=== PATIENT | female | born 1935 | race Caucasian/White ===

== ENCOUNTER 2017-01-19 07:37 | Emergency (ER) | payer MEDICARE, OTHER ==
[~2017-01-19] VITALS: Ht 170.2 cm; Wt 67.4 kg
[~2017-01-19 07:37] MED LIST: ASPI-557 PO; ATOR10TA64 PO; CALC-886 PO; CARB1TAB20 PO; DIGO125T70 PO; FURO40TA5 PO; LOSA50TA17 PO; MULT-1243 PO; POTA20TA69 PO; WARF3TAB27 PO; ZOLE5INF7 IV
--- OUTSIDE RECORDS SUMMARY | 2017-01-19 07:41 | XMS REPORT | Referral Summary ---
Author Author [facility] Organization [facility] Address Unknown Phone Unavailable Care Team Providers Care Cold Mill Supervisor Name Role Phone Fatoumata Negron Primary Care Physician [phone] Encounter VC Date(s): 04/30/15 - 04/30/15 [facility] [address] [place], [place] [address] Discharge Disposition: 01-Home or Self Care Attending Physician: Marco Antonio Kendall MD Admitting Physician: Marco Antonio Kendall MD Vital Signs No data available for this section Problem List Condition Effective Dates Status Health Status Informant Gait Active disturbance(Confirme d) Atrial Resolved fibrillation(Confirm ed) Meningioma(Confirmed Active ) Presence of Active permanent cardiac pacemaker(Confirmed) Carotid artery RT Resolved neck, LT leg(Confirmed)1 AF (atrial Active fibrillation)(Confir med) 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)2 Decreased vibratory Active sense(Confirmed) Carotid artery Active disease(Confirmed) H/O Active osteopenia(Confirmed ) H/O Active hyperlipidemia(Confi rmed) High Active cholesterol(Confirme d) Hypertension(Confirm Resolved ed) HTN Active (hypertension)(Confi rmed) Malignant colon Resolved tumor(Confirmed)3 RT RF Resolved Mass(Confirmed)4 Orthostatic Active hypotension(Confirme d) Osteoporosis(Confirm Resolved ed) Pacemaker(Confirmed) 03/23/14 Resolved 5 Parkinsonism(Confirm Active ed) 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) Tremor(Confirmed) Active 1surgically cleaned out 2Descending colon 3tumor surgically removed 4excision 5pacemaker implanted Allergies, Adverse Reactions, Alerts No Known Allergies Medications amLODIPine 5 mg oral tablet See Instructions, TAKE 1 TABLET BY MOUTH EVERY DAY, # 90 tabs, 3 Refill(s), eRx : [facility] [id number], TAKE 1 TABLET BY MOUTH EVERY DAY Start Date: 04/26/15 Status: Ordered Aspir 81 81 mg, Oral, Daily, 1 tab, 0 Refill(s) Start Date: 05/26/14 Status: Ordered atorvastatin 10 mg oral tablet 10 mg 1 tabs, Oral, Bedtime (once a day), # 90 tabs, 3 Refill(s), [id number], 1 tabs Oral Bedtime (once a day) Start Date: 07/19/15 Status: Ordered carbidopa-levodopa 25 mg-100 mg oral tablet See Instructions, 1 TABS ORAL TID, # 90 tabs, eRx: [facility] [id number], 1 TABS ORAL TID Start Date: 11/08/15 Status: Ordered Centrum Silver 0.4mg-300mcgmcg - 1 tab, Daily, 0 Refill(s) Start Date: 04/09/14 Status: Ordered Citracal + D 250MG-200UNITS - 2 CAPS, Oral, Daily, 0 Refill(s) Start Date: 04/09/14 Status: Ordered digoxin 125 mcg (0.125 mg) oral tablet 125 mcg 1 tabs, Oral, Daily, # 90 tabs, 3 Refill(s), Pharmacy: [facility] [id number], 1 tabs Oral Daily Start Date: 07/06/15 Status: Ordered Diltiazem Hydrochloride ER 120 mg/24 hours oral capsule, extended release 120 mg 1 caps, Oral, Daily, # 30 caps, 3 Refill(s), Pharmacy: [facility] [id number], 1 caps Oral Daily Start Date: 08/17/15 Status: Ordered losartan 50 mg oral tablet 50 mg 1 tabs, Oral, Daily, # 90 tabs, 3 Refill(s), Pharmacy: [facility] [id number], 1 tabs Oral Daily Start Date: 07/06/15 Status: Ordered potassium chloride 20 mEq oral tablet, extended release See Instructions, 1 TABS ORAL DAILY, # 30 tabs, 3 Refill(s), eRx: [facility] [id number], 1 TABS ORAL DAILY Start Date: 08/16/15 Status: Ordered Reclast 5 mg/100 mL intravenous solution 5 mg 100 mL, IV, qYear, yearly, # 100 mL, 0 Refill(s), other reason (Rx) Start Date: 05/14/15 Stop Date: 05/14/16 Status: Ordered warfarin 1 mg oral tablet See Instructions, TAKE 1 TABLET BY MOUTH EVERY DAY, # 30 tabs, eRx: [facility] [id number], TAKE 1 TABLET BY MOUTH EVERY DAY Start Date: 10/04/15 Status: Ordered Results No data available for this section Immunizations Vaccine Date Refusal Reason hepatitis A pediatric vaccine 09/03/98 hepatitis A pediatric vaccine 02/25/98 pneumococcal 13-valent conjugate vaccine 11/10/14 pneumococcal 23-polyvalent vaccine 11/30/08 tetanus-diphth toxoids (Td) adult/adol 11/25/07 Procedures Procedure Date Related Diagnosis Body Site Colonoscopic polypectomy1 04/22/12 Colonoscopic polypectomy2 10/14/01 Biopsy of breast 1979 Appendectomy Colectomy FS - Flexible sigmoidoscopy3 H/O excision of RT RF mass Hysterectomy pacemaker 1Adenomatous polyp 1. We'll not need to repeat unless symptoms warrant. 2Polyps, personal history colon cancer 3Multiple through the years Social History Social History Type Response Smoking Status Never smoker Assessment and Plan No data available for this section
--- OUTSIDE RECORDS SUMMARY | 2017-01-19 07:42 | XMS REPORT | Referral Summary ---
Author Author [facility] Organization [facility] Address Unknown Phone Unavailable Care Team Providers Care Water Pollution Control Technician Name Role Phone Fatoumata Negron Primary Care Physician [phone] Encounter VC Date(s): 05/10/15 - 05/10/15 [facility] [address] [facility] [place] [address] Discharge Diagnosis: AF (atrial fibrillation) Discharge Disposition: 01-Home or Self Care Attending Physician: Bhumika Torrez APRN Admitting Physician: Bhumika Torrez APRN Referring Physician: Yolie Negron MD Vital Signs Most recent to 1 oldest [Reference Range]: Peripheral Pulse 74 bpm Rate [60-100 bpm] (05/10/15 2:59 PM) Blood Pressure 118/76 mmHg [90-140/60-90 mmHg] (05/10/15 2:59 PM) Problem List Condition Effective Dates Status Health Status Informant Gait Active disturbance(Confirme d) Acute Active pain(Confirmed) At risk for Active injury(Confirmed)1 Atrial Resolved fibrillation(Confirm ed) Meningioma(Confirmed Active ) Presence of Active permanent cardiac pacemaker(Confirmed) Carotid artery RT Resolved neck, LT leg(Confirmed)2 AF (atrial Active fibrillation)(Confir med) 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)3 Decreased vibratory Active sense(Confirmed) Carotid artery Active disease(Confirmed) Fluid Active imbalance(Confirmed) 4 H/O Active osteopenia(Confirmed ) H/O Active hyperlipidemia(Confi rmed) High Active cholesterol(Confirme d) Hypertension(Confirm Resolved ed) HTN Active (hypertension)(Confi rmed) Impaired gas Active exchange(Confirmed)5 Malignant colon Resolved tumor(Confirmed)6 RT RF Resolved Mass(Confirmed)7 Orthostatic Active hypotension(Confirme d) Osteoporosis(Confirm Resolved ed) Pacemaker(Confirmed) 03/23/14 Resolved 8 Parkinsonism(Confirm Active ed) 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) Tremor(Confirmed) Active 1Problem added automatically by system based on initiation of Risk for Injury Plan of Care 2surgically cleaned out 3Descending colon 4Problem added automatically by system based on initiation of Fluid Volume Imbalance Plan of Care 5Problem added automatically by system based on initiation of Impaired Gas Exchange Plan of Care 6tumor surgically removed 7excision 8pacemaker implanted Allergies, Adverse Reactions, Alerts No Known Allergies Medications Aspir 81 81 mg, Oral, Daily, 0 Refill(s) Start Date: 05/26/14 Status: Ordered atorvastatin 10 mg oral tablet 10 mg 1 tabs, Oral, Bedtime (once a day), # 90 tabs, 3 Refill(s), Pharmacy: [facility] [id number], 1 tabs Oral Bedtime (once a day) Start Date: 07/19/15 Status: Ordered Centrum Silver 1 tabs, Oral, Daily, 0 Refill(s) Start Date: 04/09/14 Status: Ordered Citracal + D 250MG-200UNITS - 2 CAPS, Oral, Daily, 0 Refill(s) Start Date: 04/09/14 Status: Ordered Communication Patient transferred from [facility], see MAR, 0 Refill(s) Start Date: 11/15/15 Status: Ordered digoxin 125 mcg (0.125 mg) oral tablet 125 mcg 1 tabs, Oral, Daily, # 90 tabs, 3 Refill(s), Pharmacy: [facility] [id number], 1 tabs Oral Daily Start Date: 07/06/15 Status: Ordered Diltiazem Hydrochloride ER 120 mg/24 hours oral capsule, extended release 120 mg 1 caps, Oral, Daily, # 30 caps, 3 Refill(s), Pharmacy: [facility] [id number], 1 caps Oral Daily Start Date: 08/17/15 Status: Ordered Klor-Con 20 mEq, Oral, Daily, 0 Refill(s) Start Date: 11/15/15 Status: Ordered losartan 100 mg, Oral, Daily, 0 Refill(s) Start Date: 11/15/15 Status: Ordered Reclast 5 mg/100 mL intravenous solution 5 mg 100 mL, IV, qYear, yearly, # 100 mL, 0 Refill(s), other reason (Rx) Start Date: 05/14/15 Stop Date: 05/14/16 Status: Ordered Sinemet 25 mg-100 mg oral tablet 1 tabs, Oral, TID, # 270 tabs, 0 Refill(s) Start Date: 11/15/15 Status: Ordered warfarin 3 mg, Oral, Daily, 0 Refill(s) Start Date: 11/15/15 Status: Ordered Results No data available for this section Immunizations Vaccine Date Refusal Reason hepatitis A pediatric vaccine 09/03/98 hepatitis A pediatric vaccine 02/25/98 pneumococcal 13-valent conjugate vaccine 11/10/14 pneumococcal 23-polyvalent vaccine 11/30/08 tetanus-diphth toxoids (Td) adult/adol 11/25/07 Procedures Procedure Date Related Diagnosis Body Site Pericardiocentesis1 11/17/15 Colonoscopic polypectomy2 04/22/12 Colonoscopic polypectomy3 10/14/01 Biopsy of breast 1980 Appendectomy Colectomy FS - Flexible sigmoidoscopy4 H/O excision of RT RF mass Hysterectomy pacemaker 1auto-populated from documented surgical case 2Adenomatous polyp 1. We'll not need to repeat unless symptoms warrant. 3Polyps, personal history colon cancer 4Multiple through the years Social History Social History Type Response Smoking Status Never smoker Assessment and Plan Extracted from: Title: Office Visit Note Author: Bhumika Torrez APRN Date: 05/10/15 Assessment/Plan AF (atrial fibrillation)
--- OUTSIDE RECORDS SUMMARY | 2017-01-19 07:42 | XMS REPORT | Referral Summary ---
Author Author [facility] Organization [facility] Address Unknown Phone Unavailable Care Team Providers Care Residential Finish Carpenter Name Role Phone Fatoumata Negron Primary Care Physician [phone] Encounter Date(s): 08/18/15 - 08/18/[address] [facility] [address] [facility] [address] [place], [place] [address] Discharge Diagnosis: Gait disturbance Discharge Diagnosis: Decreased vibratory sense Discharge Diagnosis: Meningioma Discharge Diagnosis: Carotid artery disease Discharge Diagnosis: Decreased vibratory sense Discharge Diagnosis: Parkinsonism Discharge Disposition: 01-Home or Self Care Attending Physician: Aris Faith MD Admitting Physician: Aris Faith MD Vital Signs Most recent to 1 oldest [Reference Range]: Peripheral Pulse 70 bpm Rate [60-100 bpm] (08/18/15 8:31 AM) Blood Pressure 120/72 mmHg [90-140/60-90 mmHg] (08/18/15 8:31 AM) Problem List Condition Effective Dates Status Health Status Informant Gait Active disturbance(Confirme d) Acute Active pain(Confirmed) At risk for Active injury(Confirmed)1 Atrial Resolved fibrillation(Confirm ed) Meningioma(Confirmed Active ) Presence of Active permanent cardiac pacemaker(Confirmed) Carotid artery RT Resolved neck, LT leg(Confirmed)2 AF (atrial Active fibrillation)(Confir med) 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)3 Decreased vibratory Active sense(Confirmed) Carotid [...] day), # 90 tabs, 3 Refill(s), Pharmacy: [facility] [id number], 1 tabs Oral Bedtime (once a day) Start Date: 07/19/15 Status: Ordered carbidopa-levodopa 25 mg-100 mg oral tablet See Instructions, 1 TABS ORAL TID, # 90 tabs, 5 Refill(s), eRx: [facility] [id number], 1 TABS ORAL TID Start Date: 12/06/15 Status: Ordered Centrum Silver 1 tabs, Oral, Daily, 0 Refill(s) Start Date: 04/09/14 Status: Ordered Citracal + D 250MG-200UNITS - 2 CAPS, Oral, Daily, 0 Refill(s) Start Date: 04/09/14 Status: Ordered colchicine 0.6 mg oral tablet 0.6 mg 1 tabs, Oral, BID, # 60 tabs, 0 Refill(s), Pharmacy: [facility] [id number], 1 tabs Oral BID Start Date: 12/21/15 Status: Ordered digoxin 125 mcg (0.125 mg) oral tablet 125 mcg 1 tabs, Oral, Daily, # 90 tabs, 3 Refill(s), Pharmacy: [facility] [id number], 1 tabs Oral Daily Start Date: 07/06/15 Status: Ordered Diltiazem Hydrochloride ER 240 mg/24 hours oral capsule, extended release See Instructions, 1 CAPS ORAL DAILY, # 30 caps, 3 Refill(s), eRx: [facility] [id number], 1 CAPS ORAL DAILY Start Date: 02/03/16 Status: Ordered furosemide 40 mg oral tablet See Instructions, TAKE 1 TABLET BY MOUTH EVERY DAY, # 30 tabs, eRx: [facility] [id number], TAKE 1 TABLET BY MOUTH EVERY DAY Start Date: 02/04/16 Status: Ordered losartan 100 mg oral tablet 100 mg 1 tabs, Oral, Daily, home dose, # 90 tabs, 3 Refill(s), Pharmacy: [facility] [id number], 1 tabs Oral Daily,Instr:home dose Start Date: 11/25/15 Status: Ordered MiraLax oral powder for reconstitution 17 g, Oral, Daily, as needed, 0 Refill(s) Start Date: 12/10/15 Status: Ordered potassium chloride 20 mEq oral tablet, extended release See Instructions, TAKE 1 TABLET BY MOUTH TWICE DAILY, # 60 tabs, eRx: [facility] [id number], TAKE 1 TABLET BY MOUTH TWICE DAILY Start Date: 01/06/16 Status: Ordered Reclast 5 mg/100 mL intravenous solution 5 mg 100 mL, IV, qYear, yearly, # 100 mL, 0 Refill(s), other reason (Rx) Start Date: 05/14/15 Stop Date: 05/14/16 Status: Ordered warfarin See Instructions, Alternating between 2 mg and 3 mg, 0 Refill(s) Start Date: 11/15/15 Status: Ordered Zaroxolyn 2.5 mg oral tablet See Instructions, 1 tabs oral twice weekly as needed, # 15 tabs, 6 Refill(s), Pharmacy: [facility] [id number], 1 tabs oral twice weekly as needed Start Date: 12/10/15 Status: Ordered Results No data available for [...] smoker Assessment and Plan Extracted from: Title: Neurology Follow-up Office Author: Aris Faith MD Date: 08/18/15 Note Impression and Plan Diagnosis Parkinsonism ([id number] G20, Discharge, Medical). Decreased vibratory sense (UCV74-AX R20.8, Discharge, Medical). Gait disturbance (HYM73-LV R26.9, Discharge, Medical). Carotid artery disease (PNC50-BI I77.9, Discharge, Medical). Meningioma (BQZ62-PE D32.9, Discharge, Medical). Dx/Order Association Plan: Diagnosis: 1. Parkinsonism Comment: Tremors: Resting component, likely parkinsonism Action component, likely med-induced, resolved On carbi/levo 25/100 1 tab tid, still with some shaking She continues to doubt her diagnosis We had quite a bit of discussion today. She has never accepted the diagnosis given to her. She has had some improvement with her tremor with carbi/levo. When asked to stop carbi/levo to see if tremors will worsen (stopping therapeutic trial) she has repeatedly not wanted to do that. She complains of "fatigue" and "slowness in walking", but on exam her gait is quite good for somebody her age, smooth and no discernible shuffling. Discussed possible course of action: continue same dose of carbi/levo, stop carbi/levo for a few days so she can see if it was helping, or increase dose further to see if increasing will improve her perceived deficits We did discuss about possible side effects of increasing meds, and she is not at all comfortable with it She would just want to continue meds as is for now We also discussed having PT work with her and she is agreeable--rx given She did admit later on that she is not quite ready to accept the fact that she is not as agile and as "able to do things" as when she was younger (MUCH younger ) I have a feeling her age and perhaps some anxiety component is playing a role here I did tell her that I may not be able to make her perfect, but I may be able to help improve some of her symptoms if she would work with me ? consider ELOIES scan but may have issues with her cardiac issues/meds Diagnosis: 2. Gait disturbance Comment: As above Diagnosis: 3. Decreased vibratory sense Comment: Complaints of balance and walking issues, but negative Romberg and no shuffling Dec vib sensation on exam No previous c-spine imaging noted Vit B12 wnl Consider c-spine imaging--but has pacemaker PT - as above Diagnosis: 4. Carotid artery disease Comment: s/p R CEA in past Risk factor control care of PCP Diagnosis: 5. Meningioma Comment: Incidental finding in MRI brain of 6mm R occipital parafalcine meningioma --pt did not know Clinical monitoring, +/- HCT prn--cannot do MRI anymore--asymptomatic .
--- OUTSIDE RECORDS SUMMARY | 2017-01-19 07:42 | XMS REPORT | Referral Summary ---
Author Organization Unknown Address Unknown Phone Unavailable Care Team Providers Care Nozzle And Sleeve Worker Name Role Phone Fatoumata Negron Primary Care Physician [phone] Encounter VC Date(s): 12/22/14 - 12/22/14 [facility], [address] [place] [id number] Discharge Diagnosis: Cough Discharge Diagnosis: Acute URI Discharge Disposition: Home or Self Care Attending Physician: Yolie Negron MD Admitting Physician: Yolie Negron MD Vital Signs Most recent to 1 oldest [Reference Range]: Temperature Tympanic 37.3 degC [36.6-38.1 degC] (12/22/14 2:13 PM) Peripheral Pulse 80 bpm Rate [60-100 bpm] (12/22/14 2:13 PM) Blood Pressure 150/68 mmHg [90-140/60-90 mmHg] *HI* (12/22/14 2:13 PM) Problem List Condition Effective Dates Status Health Status Informant Gait Active disturbance(Confirme d) AF (atrial Active fibrillation)(Confir med) Atrial Resolved fibrillation(Confirm ed) Presence of Active permanent cardiac pacemaker(Confirmed) Carotid artery RT Resolved neck, LT leg(Confirmed)1 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)2 Carotid artery Active disease(Confirmed) H/O Active osteopenia(Confirmed ) H/O Active hyperlipidemia(Confi rmed) High Active cholesterol(Confirme d) Hypertension(Confirm Resolved ed) HTN Active (hypertension)(Confi rmed) Malignant colon Resolved tumor(Confirmed)3 RT RF Resolved Mass(Confirmed)4 Orthostatic Active hypotension(Confirme d) Osteoporosis(Confirm Resolved ed) Pacemaker(Confirmed) 03/23/14 Resolved 5 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) possible diagnosis Active of Parkinson's disease(Confirmed) 1surgically cleaned out 2Descending colon 3tumor surgically removed 4excision 5pacemaker implanted Allergies, Adverse Reactions, Alerts No Known Allergies Medications Aspir 81 81 mg, Oral, Daily, 0 Refill(s) Start Date: 05/26/14 Status: Ordered atorvastatin 10 mg oral tablet See Instructions, TAKE 1 TABLET (10MG) BY ORAL ROUTE EVERY DAY, # 90 unknown unit, eRx: [facility] [id number], TAKE 1 TABLET (10MG) BY ORAL ROUTE EVERY DAY Special Instructions: TAKE 1 TABLET (10MG) BY ORAL ROUTE EVERY DAY Start Date: 10/26/14 Status: Ordered Centrum Silver 0.4mg-300mcgmcg - 1 tab, Daily, 0 Refill(s) Start Date: 04/09/14 Status: Ordered Citracal + D 250MG-200UNITS - 2 CAPS, Oral, Daily, 0 Refill(s) Start Date: 04/09/14 Status: Ordered Coumadin 4 mg oral tablet See Instructions, 1 TABS ORAL DAILY, # 30 tabs, 3 Refill(s), eRx: [facility] [id number], 1 TABS ORAL DAILY Special Instructions: 1 TABS ORAL DAILY Start Date: 07/30/14 Status: Ordered digoxin 125 mcg (0.125 mg) oral tablet 1 tabs, Oral, Daily, 0 Refill(s) Start Date: 04/09/14 Status: Ordered flecainide 50 mg oral tablet See Instructions, 1.5 TABS ORAL Q12HR, # 270 tabs, 2 Refill(s), eRx: [facility] [id number], 1.5 TABS ORAL Q12HR Special Instructions: 1.5 TABS ORAL Q12HR Start Date: 09/23/14 Status: Ordered losartan 50 mg oral tablet See Instructions, TAKE 1 TABLET BY MOUTH EVERY DAY., # 90 unknown unit, 2 Refill (s), eRx: [facility] [id number], TAKE 1 TABLET BY MOUTH EVERY DAY. Special Instructions: TAKE 1 TABLET BY MOUTH EVERY DAY. Start Date: 11/03/14 Status: Ordered Norvasc 5 mg oral tablet 1 tabs, Oral, Daily, 0 Refill(s) Start Date: 04/09/14 Status: Ordered potassium chloride 20 mEq oral tablet, extended release 1 tabs, Oral, Daily, 0 Refill(s) Start Date: 6/5/14 Status: Ordered Reclast 5 mg/100 mL intravenous solution 100 mL, IV, qYear, yearly, 0 Refill(s) Special Instructions: yearly Start Date: 04/09/14 Status: Ordered Sinemet 10 mg-100 mg oral tablet 1 tabs, Oral, TID, 0 Refill(s) Start Date: 04/09/14 Status: Ordered warfarin 3 mg oral tablet See Instructions, TAKE 1 TABLET BY MOUTH DAILY OR DIRECTED BY PHYSICIAN., # 90 unknown unit, 3 Refill(s), eRx: [id number], TAKE 1 TABLET BY MOUTH DAILY OR DIRECTED BY PHYSICIAN. Special Instructions: TAKE 1 TABLET BY MOUTH DAILY OR DIRECTED BY PHYSICIAN. Start Date: 11/23/14 Status: Ordered Results Hematology Most recent to 1 oldest [Reference Range]: WBC [5.0-10.0 K/uL] 6.1 K/uL (12/22/14 2:30 PM) RBC [3.70-5.20 M/uL] 4.05 M/uL (12/22/14 2:30 PM) Hgb [12.0-16.0 12.7 gm/dL gm/dL] (12/22/14 2:30 PM) Hct [37.0-47.0 %] 37.8 % (12/22/14 2:30 PM) MCV [80.0-96.0 fL] 93.3 fL (12/22/14 2:30 PM) MCH [26.0-34.0 pg] 31.4 pg (12/22/14 2:30 PM) MCHC [32.0-36.0 33.6 gm/dL gm/dL] (12/22/14 2:30 PM) RDW [0.0-14.5 %] 13.2 % (12/22/14 2:30 PM) Platelet [150-400 204 K/uL K/uL] (12/22/14 2:30 PM) MPV [8.8-14.8 fL] 9.8 fL (12/22/14 2:30 PM) Neutrophils [50-70 72 % %] *HI* (12/22/14 2:30 PM) Lymphocytes [20-40 18 % %] *LOW* (12/22/14 2:30 PM) Monocytes [4-8 %] 10 % *HI* (12/22/14 2:30 PM) Eosinophils [0-6 %] 0 % (12/22/14 2:30 PM) Basophils [0-2 %] 0 % (12/22/14 2:30 PM) Neutro Absolute 4.39 K/uL [2.50-7.00 K/uL] (12/22/14 2:30 PM) Lymph Absolute 1.07 K/uL [1.00-4.00 K/uL] (12/22/14 2:30 PM) Harper Absolute 0.58 K/uL [0.20-0.80 K/uL] (12/22/14 2:30 PM) Eos Absolute 0.02 K/uL [0.00-0.60 K/uL] (12/22/14 2:30 PM) Baso Absolute 0.01 K/uL [0.00-0.30 K/uL] (12/22/14 2:30 PM) Immunizations Vaccine Date Refusal Reason hepatitis A pediatric vaccine 09/03/98 hepatitis A pediatric vaccine 02/25/98 pneumococcal 13-valent conjugate vaccine 11/10/14 pneumococcal 23-polyvalent vaccine 11/30/08 tetanus-diphth toxoids (Td) adult/adol 11/25/07 Procedures Procedure Date Related Diagnosis Body Site Colonoscopic polypectomy1 04/22/12 Colonoscopic polypectomy2 10/14/01 Biopsy of breast 1980 Appendectomy Colectomy FS - Flexible sigmoidoscopy3 H/O excision of RT RF mass Hysterectomy 1Adenomatous polyp 1. We'll not need to repeat unless symptoms warrant. 2Polyps, personal history colon cancer 3Multiple through the years Social History Social History Type Response Smoking Status Never smoker Assessment and Plan Extracted from: Title: Ambulatory Patient Education Author: Yolie Negron MD Date: 12/22/14 Family Medicine Upper Respiratory Infection, Adult An upper respiratory infection (URI) is also sometimes known as the common cold. The upper respiratory tract includes the nose, sinuses, throat, trachea, and bronchi. Bronchi are the airways leading to the lungs. Most people improve within 1 week, but symptoms can last up to 2 weeks. A residual cough may last even longer. CAUSES Many different viruses can infect the tissues lining the upper respiratory tract. The tissues become irritated and inflamed and often become very moist. Mucus production is also common. A cold is contagious. You can easily spread the virus to others by oral contact. This includes kissing, sharing a glass, coughing, or sneezing. Touching your mouth or nose and then touching a surface, which is then touched by another person, can also spread the virus. SYMPTOMS Symptoms typically develop 1 to 3 days after you come in contact with a cold virus. Symptoms vary from person to person. They may include: Runny nose. Sneezing. Nasal congestion. Sinus irritation. Sore throat. Loss of voice (laryngitis ). Cough. Fatigue. Muscle aches. Loss of appetite. Headache. Low-grade fever. DIAGNOSIS You might diagnose your own cold based on familiar symptoms, since most people get a cold 2 to 3 times a year. Your caregiver can confirm this based on your exam. Most importantly, your caregiver can check that your symptoms are not due to another disease such as strep throat, sinusitis, pneumonia, asthma, or epiglottitis. Blood tests, throat tests, and X-rays are not necessary to diagnose a common cold, but they may sometimes be helpful in excluding other more serious diseases. Your caregiver will decide if any further tests are required. RISKS AND COMPLICATIONS You may be at risk for a more severe case of the common cold if you smoke cigarettes, have chronic heart disease (such as heart failure) or lung disease ( such as asthma), or if you have a weakened immune system. The very young and very old are also at risk for more serious infections. Bacterial sinusitis, middle ear infections, and bacterial pneumonia can complicate the common cold. The common cold can worsen asthma and chronic obstructive pulmonary disease ( COPD). Sometimes, these complications can require emergency medical care and may be life-threatening. PREVENTION The best way to protect against getting a cold is to practice good hygiene. Avoid oral or hand contact with people with cold symptoms. Wash your hands often if contact occurs. There is no clear evidence that vitamin C, vitamin E, echinacea, or exercise reduces the chance of developing a cold. However, it is always recommended to get plenty of rest and practice good nutrition. TREATMENT Treatment is directed at relieving symptoms. There is no cure. Antibiotics are not effective, because the infection is caused by a virus, not by bacteria. Treatment may include: Increased fluid intake. Sports drinks offer valuable electrolytes, sugars, and fluids. Breathing heated mist or steam (vaporizer or shower). Eating chicken soup or other clear broths, and maintaining good nutrition. Getting plenty of rest. Using gargles or lozenges for comfort. Controlling fevers with ibuprofen or acetaminophen as directed by your caregiver. Increasing usage of your inhaler if you have asthma. Zinc gel and zinc lozenges, taken in the first 24 hours of the common cold, can shorten the duration and lessen the severity of symptoms. Pain medicines may help with fever, muscle aches, and throat pain. A variety of non-prescription medicines are available to treat congestion and runny nose. Your caregiver can make recommendations and may suggest nasal or lung inhalers for other symptoms. HOME CARE INSTRUCTIONS Only take [id number] or prescription medicines for pain, discomfort, or fever as directed by your caregiver. Use a warm mist humidifier or inhale steam from a shower to increase air moisture. This may keep secretions moist and make it easier to breathe. Drink enough water and fluids to keep your urine clear or pale yellow. Rest as needed. Return to work when your temperature has returned to normal or as your caregiver advises. You may need to stay home longer to avoid infecting others. You can also use a face mask and careful hand washing to prevent spread of the virus. SEEK MEDICAL CARE IF: After the first few days, you feel you are getting worse rather than better. You need your caregiver's advice about medicines to control symptoms. You develop chills, worsening shortness of breath, or brown or red sputum. These may be signs of pneumonia. You develop yellow or brown nasal discharge or pain in the face, especially when you bend forward. These may be signs of sinusitis. You develop a fever, swollen neck glands, pain with swallowing, or white areas in the back of your throat. These may be signs of strep throat. SEEK IMMEDIATE MEDICAL CARE IF: You have a fever. You develop severe or persistent headache, ear pain, sinus pain, or chest pain. You develop wheezing, a prolonged cough, cough up blood, or have a change in your usual mucus (if you have chronic lung disease). You develop sore muscles or a stiff neck. Document Released: 04/17/2002 Document Revised: 01/13/2013 Document Reviewed: [facility] Patient Information 2014 [email or web address] [facility]. No follow up information was provided. Extracted from: Title: Office Visit Note Author: Yolie Negron MD Date: 12/22/14 Assessment/Plan Acute URI symptomatic care. Cough
--- OUTSIDE RECORDS SUMMARY | 2017-01-19 07:42 | XMS REPORT | Referral Summary ---
Author Author [facility] Organization [facility] Address Unknown Phone Unavailable Care Team Providers Care Piece Dye Worker Name Role Phone Fatoumata Negron Primary Care Physician [phone] Encounter VC Date(s): 06/16/16 - 06/16/16 [address] [facility] [address] [facility] [address] [place], [place] [address] Discharge Diagnosis: Parkinsons Discharge Diagnosis: Tremor Discharge Diagnosis: Gait disturbance Discharge Diagnosis: Anxiety Discharge Disposition: 01-Home or Self Care Attending Physician: Aris Faith MD Admitting Physician: Aris Faith MD Vital Signs Most recent to 1 oldest [Reference Range]: Peripheral Pulse 64 bpm Rate [60-100 bpm] (06/16/16 10:22 AM) Blood Pressure 124/72 mmHg [90-140/60-90 mmHg] (06/16/16 10:22 AM) Problem List Condition Effective Dates Status [...] Osteoporosis(Confirm Resolved ed) Pacemaker(Confirmed) 03/23/14 Resolved 8 Parkinsons(Confirmed Active ) Parkinsonism(Confirm Active ed) Sensory peripheral Active neuropathy(Confirmed [...] day), # 90 tabs, 3 Refill(s), [facility]: [email or web address] [id number], 1 tabs Oral Bedtime (once a day) Start Date: 07/19/15 Status: Ordered carbidopa-levodopa 25 mg-100 mg oral tablet See Instructions, TAKE 1 TABLET BY MOUTH THREE TIMES DAILY, # 90 tabs, eRx: [email or web address] [id number], TAKE 1 TABLET BY MOUTH THREE TIMES DAILY Start Date: 05/29/16 Status: Ordered Cartia XT 240 mg/24 hours oral capsule, extended release See Instructions, TAKE 1 CAPSULE BY MOUTH DAILY, # 30 caps, 4 Refill(s), eRx: [email or web address] [id number], TAKE 1 CAPSULE BY MOUTH DAILY Start Date: 06/01/16 Status: Ordered Centrum Silver 1 tabs, Oral, Daily, 0 Refill(s) Start Date: 04/09/14 Status: Ordered Citracal + D 250MG-200UNITS - 2 CAPS, Oral, Daily, 0 Refill(s) Start Date: 04/09/14 Status: Ordered digoxin 125 mcg (0.125 mg) oral tablet 125 mcg 1 tabs, Oral, Daily, # 90 tabs, 3 Refill(s), Pharmacy: [email or web address] [id number], 1 tabs Oral Daily Start Date: 07/06/15 Status: Ordered furosemide 40 mg oral tablet See Instructions, TAKE 1 TABLET BY MOUTH EVERY DAY, # 30 tabs, 9 Refill(s), eRx : [email or web address] [id number], TAKE 1 TABLET BY MOUTH EVERY DAY Start Date: 06/12/16 Status: Ordered losartan 100 mg oral tablet 100 mg 1 tabs, Oral, Daily, home dose, # 90 tabs, 3 Refill(s), Pharmacy: [email or web address] [id number], 1 tabs Oral Daily,Instr:home dose Start Date: 11/25/15 Status: Ordered MiraLax oral powder for reconstitution 17 g, Oral, Daily, as needed, 0 Refill(s) Start Date: 12/10/15 Status: Ordered potassium chloride 20 mEq oral tablet, extended release See Instructions, TAKE 1 TABLET BY MOUTH TWICE DAILY, # 60 tabs, 8 Refill(s), eRx: [email or web address] [id number], TAKE 1 TABLET BY MOUTH TWICE DAILY Start Date: 06/16/16 Status: Ordered Reclast 5 mg/100 mL intravenous solution 5 mg 100 mL, IV, qYear, yearly, # 100 mL, 0 Refill(s), other reason (Rx) Start Date: 05/14/15 Stop Date: 05/14/16 Status: Ordered warfarin See Instructions, Alternating between 2 mg and 3 mg, 0 Refill(s) Start Date: 11/15/15 Status: Ordered warfarin 3 mg oral tablet 3 mg 1 tabs, Oral, Daily, # 90 tabs, 2 Refill(s), Pharmacy: [email or web address] [id number], 1 tabs Oral Daily Start Date: 04/13/16 Status: Ordered Zaroxolyn 2.5 mg oral tablet See Instructions, 1 tabs oral twice weekly as needed, # 15 tabs, 6 Refill(s), Pharmacy: [email or web address] [id number], 1 tabs oral twice weekly as needed [...] Extracted from: Title: Office Visit Note Author: Bee Cazares MEDICAL OFFICE SCHEDULER Date: 06/16/16 Assessment/Plan 1.Parkinsons Patient was resting tremor to left hand, mild intention tremor noted to left handfinger to nose test, Patient currently on carbidopa/vbjyetkh17/100, 1.5-1.5-1 at 7Am-3pm-9pm. Still has someshakingthat is hesitant to increase this dosedue to not noticing too much of a change with the increase. Patientdescribesa feeling of"tremblingon the inside" The increased dose ofcarbidopa/levodopadid not improve this. Patient denies side effects carbidopa/levodopa. Complains of feeling stiff, but toneon exam was normal. Deniesunsteady gait, but does state that she has to concentrate did not shuffle her feet. No shuffling of feet noticed onexam. Patient continuestodo water therapy 3 times a week, and exercise therapy 2 times a week. Patient feels like hertone of her voice is weaker, but she is are any seeking voice therapy. Patient also complainsof the change in her hearing. She says she don't hear toneslike she used to. Counseled patient that this could benormal agingchangeswith her hearing.. Encouraged patient to follow up with her ENT. Hearing wasintact onexam today Denies issues withbladder, denies swallowing problems,mild constipation treated with stool softeners Deniesnighttime sleep symptoms;however,patient doesstatethat she does lay awake at nightworrying about her disease progression. Counseled patientthat perhaps some of the trembling feeling that on the inside that she isdescribing could be related to anxiety. Advised patientto follow up with her PCPregarding possible treatment with anti-anxiety medication or counseling. Discussed with patientabout the possibilityof decreasingcarbidopa/levodopaif she felt that she had no changein her symptoms. The patient was hesitant to do so. Will leave at current dose of carbidopa//100 mg 1.2siiujvvi8 AMand 3 PM, 1 tabletat 9 PM. Counseled patient onside effectsof carbidopa/levodopa Encouraged patient to continuecurrent exercise routineto help with mobility. Encouraged to continue to work with vocal therapist. Counseled the patient that she was doing the right steps to help maintain her health. 2.Anxiety see above, I feel that the symptom of "trembling on the inside " could be anxiety related. Encouraged patient to follow up with PCP regarding anxiety and suggested that counseling could help relieve some worries. Written information about living with Parkinsons disease was given to the patient and her . 3.Tremor As above 4.Gait disturbance Encouraged patient to continue current exercise therapy to help with mobility. Counseled regarding fall precautionsand possible orthostasiswith the combination of medications that she is on including blood pressure medications, diuretic, and carbidopa/levodopa. Patient voiced understanding. Time spent with the patient was 35 minutes. Greater than 50% of that time was spent counseling the patient, answering questions, discussing treatment options and follow up plan. The patient will follow up with Dr. Faith in 6 months. She understands that she may call our office with questions or if she feels that she needs to be seen sooner.
--- OUTSIDE RECORDS SUMMARY | 2017-01-19 07:42 | XMS REPORT | Referral Summary ---
Author Author [facility] Organization [facility] Address Unknown Phone Unavailable Care Team Providers Care Ripening Room Hand Name Role Phone Fatoumata Negron Primary Care Physician [phone] Encounter Date(s): 04/14/15 - 04/14/[address] [facility] [address] [facility] [address] [place], [place] [address] Discharge Diagnosis: Tremor Discharge Diagnosis: Decreased vibratory sense Discharge Diagnosis: Carotid artery disease Discharge Diagnosis: Meningioma Discharge Disposition: 01-Home or Self Care Attending Physician: Aris Faith MD Admitting Physician: Aris Faith MD Referring Physician: Yolie Negron MD Vital Signs Most recent to 1 oldest [Reference Range]: Peripheral Pulse 80 bpm Rate [60-100 bpm] (04/14/15 2:30 PM) Blood Pressure 130/82 mmHg [90-140/60-90 mmHg] (04/14/15 2:30 PM) Problem List Condition Effective Dates Status [...] # 90 tabs, 3 Refill(s), eRx : [facility] [id number], TAKE 1 TABLET BY MOUTH EVERY DAY Start Date: 04/26/15 Status: Ordered Aspir 81 81 mg, Oral, Daily, 1 tab, 0 Refill(s) Start Date: 05/26/14 Status: Ordered atorvastatin 10 mg oral tablet 10 mg 1 tabs, Oral, Bedtime (once a day), # 90 tabs, 3 Refill(s), Pharmacy: [facility] [id number], 1 tabs Oral Bedtime (once a day) Start Date: 07/19/15 Status: Ordered carbidopa-levodopa 25 mg-100 mg oral tablet See Instructions, 1 TABS ORAL TID,INSTR:TAKE AT 7AM, 2PM, 9PM, # 90 tabs, 5 Refill(s), eRx: [facility] [id number], 1 TABS ORAL TID,INSTR:TAKE AT 7AM, 2PM, 9PM Start Date: 05/18/15 Status: Ordered Centrum Silver 0.4mg-300mcgmcg - 1 tab, Daily, 0 Refill(s) Start Date: 04/09/14 Status: Ordered Citracal + D 250MG-200UNITS - 2 CAPS, Oral, Daily, 0 Refill(s) Start Date: 04/09/14 Status: Ordered digoxin 125 mcg (0.125 mg) oral tablet 125 mcg 1 tabs, Oral, Daily, # 90 tabs, 3 Refill(s), Pharmacy: [facility] [id number], 1 tabs Oral Daily Start Date: 07/06/15 Status: Ordered Diltiazem Hydrochloride ER 120 mg/24 hours oral capsule, extended release 120 mg 1 caps, Oral, Daily, # 30 caps, 3 Refill(s), Pharmacy: [facility] [id number], 1 caps Oral Daily Start Date: 08/17/15 Status: Ordered losartan 50 mg oral tablet 50 mg 1 tabs, Oral, Daily, # 90 tabs, 3 Refill(s), Pharmacy: [facility] [id number], 1 tabs Oral Daily Start Date: 07/06/15 Status: Ordered potassium chloride 20 mEq oral tablet, extended release See Instructions, 1 TABS ORAL DAILY, # 30 tabs, 3 Refill(s), eRx: [facility] [id number], 1 TABS ORAL DAILY Start Date: 08/16/15 Status: Ordered Reclast 5 mg/100 mL intravenous solution 5 mg 100 mL, IV, qYear, yearly, # 100 mL, 0 Refill(s), other reason (Rx) Start Date: 05/14/15 Stop Date: 05/14/16 Status: Ordered warfarin 1 mg oral tablet See Instructions, 1 TABS ORAL DAILY, # 30 tabs, eRx: [facility] [id number] , 1 TABS ORAL DAILY Start Date: 08/18/15 Status: Ordered warfarin 1 mg oral tablet 0.5 mg 0.5 tabs, Oral, Daily, # 15 tabs, 0 Refill(s), Pharmacy: [facility] [id number], 0.5 tabs Oral Daily Start Date: 08/13/15 Status: Ordered Results No data available for [...] Follow-up Office Author: Aris Faith MD Date: 04/14/15 Note Impression and Plan Diagnosis Tremor (ICD9 781.0, Discharge, Medical). Meningioma (ICD9 225.2, Discharge, Medical). Decreased vibratory sense (ICD9 782.0, Discharge, Medical). Carotid artery disease (ICD9 447.9, Discharge, Medical). Dx/Order Association Plan: Diagnosis: Tremor Comment: Tremors, possibly Parkinsonian On carbi/levo 25/100 1 tab tid, still with shaking Discussed possible course of action: stay the same, or increase Pt asking if can try stop, as discussed before--advised if stopping, decrease by 1 pill every 2-3 days If restarting, can restart carbi/levo 25/100 1 tab tid Flecainide can cause tremors, advised discuss with occupational analyst ? consider ELOISE scan Diagnosis: Decreased vibratory sense Comment: Complaints of balance issues Dec vib sensation Vit B12 wnl Consider c-spine imaging later if needed--she does have ? upgoing toe on L--but has pacemaker No previous c-spine imaging noted Diagnosis: Carotid artery disease Comment: s/p R CEA in past Risk factor control care of her PCP Diagnosis: Meningioma Comment: Incidental finding in MRI brain of 6mm R occipital parafalcine meningioma --pt did not know Will have to go clinical and monitor--cannot do MRI anymore--asymptomatic Discussed .
--- OUTSIDE RECORDS SUMMARY | 2017-01-19 07:42 | XMS REPORT | Referral Summary ---
Author Author [facility] Organization [facility] Address Unknown Phone Unavailable Care Team Providers Care Cage/Vault Supervisor Name Role Phone Fatoumata Negron Primary Care Physician [phone] Encounter VC Date(s): 07/07/15 - 07/07/15 [facility] [address] [place], [place] [address] Discharge Disposition: 01-Home or Self Care Attending [...] day), # 90 tabs, 3 Refill(s), Pharmacy: [facility] [id number], 1 tabs Oral Bedtime (once a day) Start Date: 07/19/15 Status: Ordered carbidopa-levodopa 25 mg-100 mg oral tablet See Instructions, 1 TABS ORAL TID, # 90 tabs, 5 Refill(s), eRx: [facility] [id number], 1 TABS ORAL TID Start Date: 12/06/15 Status: Ordered Centrum Silver 1 tabs, Oral, Daily, 0 Refill(s) Start Date: 04/09/14 Status: Ordered Citracal + D 250MG-200UNITS - 2 CAPS, Oral, Daily, 0 Refill(s) Start Date: 04/09/14 Status: Ordered colchicine 0.6 mg oral tablet 0.6 mg 1 tabs, Oral, BID, # 60 tabs, 0 Refill(s), Pharmacy: [facility] [id number], 1 tabs Oral BID Start Date: 12/21/15 Status: Ordered digoxin 125 mcg (0.125 mg) oral tablet 125 mcg 1 tabs, Oral, Daily, # 90 tabs, 3 Refill(s), Pharmacy: [facility] [id number], 1 tabs Oral Daily Start Date: 07/06/15 Status: Ordered Diltiazem Hydrochloride ER 240 mg/24 hours oral capsule, extended release 240 mg 1 caps, Oral, Daily, # 30 caps, 0 Refill(s), Pharmacy: [facility] [id number], 1 caps Oral Daily Start Date: 01/06/16 Status: Ordered furosemide 40 mg oral tablet See Instructions, TAKE 1 TABLET BY MOUTH EVERY DAY, # 30 tabs, eRx: [facility] [id number], TAKE 1 TABLET BY MOUTH EVERY DAY Start Date: 01/06/16 Status: Ordered losartan 100 mg oral tablet 100 mg 1 tabs, Oral, Daily, home dose, # 90 tabs, 3 Refill(s), Pharmacy: [facility] [id number], 1 tabs Oral Daily,Instr:home dose Start Date: 11/25/15 Status: Ordered MiraLax oral powder for reconstitution 17 g, Oral, Daily, as needed, 0 Refill(s) Start Date: 12/10/15 Status: Ordered potassium chloride 20 mEq oral tablet, extended release See Instructions, TAKE 1 TABLET BY MOUTH TWICE DAILY, # 60 tabs, eRx: [facility] [id number], TAKE 1 TABLET BY MOUTH TWICE DAILY [...] needed, # 15 tabs, 6 Refill(s), Pharmacy: [facility] [id number], 1 tabs oral twice weekly as needed [...]
--- OUTSIDE RECORDS SUMMARY | 2017-01-19 07:42 | XMS REPORT | Referral Summary ---
Author Organization Unknown Address Unknown Phone Unavailable Care Team Providers Care Veterinary Surgery Technologist Name Role Phone Fatoumata Negron Primary Care Physician [phone] Encounter VC Date(s): 01/18/15 - 01/18/15 [facility] [address] [place], [place] [address] Discharge Diagnosis: Ganglion cyst Discharge Disposition: Home or Self Care Attending Physician: Aston Andersen MD Admitting Physician: Aston Andersen MD Referring Physician: Yolie Negron MD Vital Signs No data available for this section Problem List Condition Effective Dates Status Health Status Informant Gait Active disturbance(Confirme d) AF (atrial Active fibrillation)(Confir med) Atrial Resolved fibrillation(Confirm ed) Presence of Active permanent cardiac pacemaker(Confirmed) Carotid artery RT Resolved neck, LT leg(Confirmed)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)2 Carotid artery Active disease(Confirmed) H/O [...] Status: Ordered atorvastatin 10 mg oral tablet 1 tabs, Oral, Bedtime (once a day), pt is due for lab work, # 30 tabs, 0 Refill( s), [id number], 1 tabs Oral Bedtime (once a day),Instr :pt is due for lab work Special Instructions: pt is due for lab work Start Date: 01/14/15 Status: Ordered carbidopa-levodopa 10 mg-100 mg oral tablet See Instructions, TAKE 1 TABLET BY MOUTH THREE TIMES DAILY, # 270 tabs, 0 Refill (s), Pharmacy: [facility] Special Instructions: TAKE 1 TABLET BY MOUTH THREE TIMES DAILY Start Date: 12/28/14 Status: Ordered Centrum Silver 0.4mg-300mcgmcg - 1 tab, Daily, 0 Refill(s) Start Date: 04/09/14 Status: Ordered Citracal + D 250MG-200UNITS - 2 CAPS, Oral, Daily, 0 Refill(s) Start Date: 04/09/14 Status: Ordered Coumadin 4 mg oral tablet See Instructions, 1 TABS ORAL DAILY, # 30 tabs, 3 Refill(s), eRx: [facility] [id number], 1 TABS ORAL DAILY Special Instructions: 1 TABS ORAL DAILY Start Date: 07/30/14 Status: Ordered digoxin 125 mcg (0.125 mg) oral tablet 1 tabs, Oral, Daily, 0 Refill(s) Start Date: 04/09/14 Status: Ordered flecainide 50 mg oral tablet See Instructions, 1.5 TABS ORAL Q12HR, # 270 tabs, 2 Refill(s), eRx: [facility] [id number], 1.5 TABS ORAL Q12HR Special Instructions: 1.5 TABS ORAL Q12HR Start Date: 09/23/14 Status: Ordered losartan 50 mg oral tablet See Instructions, TAKE 1 TABLET BY MOUTH EVERY DAY., # 90 unknown unit, 2 Refill (s), eRx: [facility] [id number], TAKE 1 TABLET BY MOUTH EVERY DAY. Special Instructions: TAKE 1 TABLET BY MOUTH EVERY DAY. Start Date: 11/03/14 Status: Ordered Norvasc 5 mg oral tablet 1 tabs, Oral, Daily, 0 Refill(s) Start Date: 04/09/14 Status: Ordered potassium chloride 20 mEq oral tablet, extended release 1 tabs, Oral, Daily, 0 Refill(s) Start Date: 04/09/14 Status: Ordered Reclast 5 mg/100 mL intravenous solution 100 mL, IV, qYear, yearly, 0 Refill(s) Special Instructions: yearly Start Date: 04/09/14 Status: Ordered warfarin 3 mg oral tablet See Instructions, TAKE 1 TABLET BY MOUTH DAILY OR DIRECTED BY PHYSICIAN., # 90 unknown unit, 3 Refill(s), eRx: [facility] [id number], TAKE 1 TABLET BY MOUTH DAILY OR DIRECTED BY PHYSICIAN. Special Instructions: TAKE 1 TABLET BY MOUTH DAILY OR DIRECTED BY PHYSICIAN. Start Date: 11/23/14 Status: Ordered Results No data available for [...] Extracted from: Title: Ambulatory Patient Education Author: Aston Andersen MD Date : 01/18/15 Family Medicine Ganglion Cyst A ganglion cyst is a noncancerous, fluid-filled lump that occurs near joints or tendons. The ganglion cyst grows out of a joint or the lining of a tendon. It most often develops in the hand or wrist but can also develop in the shoulder, elbow, hip, knee, ankle, or foot. The round or oval ganglion can be pea sized or larger than a grape. Increased activity may enlarge the size of the cyst because more fluid starts to build up. CAUSES It is not completely known what causes a ganglion cyst to grow. However, it may be related to: Inflammation or irritation around the joint. An injury. Repetitive movements or overuse. Arthritis. SYMPTOMS A lump most often appears in the hand or wrist, but can occur in other areas of the body. Generally, the lump is painless without other symptoms. However, sometimes pain can be felt during activity or when pressure is applied to the lump. The lump may even be tender to the touch. Tingling, pain, numbness, or muscle weakness can occur if the ganglion cyst presses on a nerve. Your meat stock clerk may be weak and you may have less movement in your joints. DIAGNOSIS Ganglion cysts are most often diagnosed based on a physical exam, noting where the cyst is and how it looks. Your caregiver will feel the lump and may shine a light alongside it. If it is a ganglion, a light often shines through it. Your caregiver may order an X-ray, ultrasound, or MRI to rule out other conditions. TREATMENT Ganglions usually go away on their own without treatment. If pain or other symptoms are involved, treatment may be needed. Treatment is also needed if the ganglion limits your movement or if it gets infected. Treatment options include : Wearing a wrist or finger brace or splint. Taking anti-inflammatory medicine. Draining fluid from the lump with a needle (aspiration ). Injecting a steroid into the joint. Surgery to remove the ganglion cyst and its stalk that is attached to the joint or tendon. However, ganglion cysts can grow back. HOME CARE INSTRUCTIONS Do not press on the ganglion, poke it with a needle, or hit it with a heavy object. You may rub the lump gently and often. Sometimes fluid moves out of the cyst. Only take medicines as directed by your caregiver. Wear your brace or splint as directed by your caregiver. SEEK MEDICAL CARE IF: Your ganglion becomes larger or more painful. You have increased redness, red streaks, or swelling. You have pus coming from the lump. You have weakness or numbness in the affected area. MAKE SURE YOU: Understand these instructions. Will watch your condition. Will get help right away if you are not doing well or get worse. Document Released: 10/19/2001 Document Revised: 07/16/2013 Document Reviewed: [employer] Patient Information 2014 [employer] [facility]. No follow up information was provided.
--- OUTSIDE RECORDS SUMMARY | 2017-01-19 07:42 | XMS REPORT | Referral Summary ---
Author Organization Unknown Address Unknown Phone Unavailable Care Team Providers Care Business Records Manager Name Role Phone Fatoumata Negron Primary Care Physician [phone] Encounter VC Date(s): 01/25/15 - 01/25/15 [facility], [facility] Pl[facility] Surgery [address] [place], [place] [address] Discharge Disposition: Home or Self Care Attending Physician: Aston Adnersen MD Admitting Physician: Aston Andersen MD Vital Signs No data available for [...] # 30 tabs, 0 Refill( s), Pharmacy: [id number], 1 tabs Oral Bedtime (once a day),Instr :pt is due for lab work Special Instructions: pt is due for lab work Start Date: 01/14/15 Status: Ordered carbidopa-levodopa 10 mg-100 mg oral tablet See Instructions, TAKE 1 TABLET BY MOUTH THREE TIMES DAILY, # 270 tabs, 0 Refill (s), Pharmacy: [facility] [id number] Special Instructions: TAKE 1 TABLET BY MOUTH THREE TIMES DAILY Start Date: 12/28/14 Status: Ordered Centrum Silver 0.4mg-300mcgmcg - 1 tab, Daily, 0 Refill(s) Start Date: 04/09/14 Status: Ordered Citracal + D 250MG-200UNITS - 2 CAPS, Oral, Daily, 0 Refill(s) Start Date: 04/09/14 Status: Ordered Coumadin 4 mg oral tablet See Instructions, 1 TABS ORAL DAILY, # 30 tabs, 3 Refill(s), eRx: [facility] [id number], 1 TABS ORAL DAILY Special Instructions: 1 TABS ORAL DAILY Start Date: 07/30/14 Status: Ordered digoxin 125 mcg (0.125 mg) oral tablet 1 tabs, Oral, Daily, 0 Refill(s) Start Date: 04/09/14 Status: Ordered flecainide 50 mg oral tablet See Instructions, 1.5 TABS ORAL Q12HR, # 270 tabs, 2 Refill(s), eRx: [facility] [id number], 1.5 TABS ORAL Q12HR Special Instructions: 1.5 TABS ORAL Q12HR Start Date: 09/23/14 Status: Ordered losartan 50 mg oral tablet See Instructions, TAKE 1 TABLET BY MOUTH EVERY DAY., # 90 unknown unit, 2 Refill (s), [id number], TAKE 1 TABLET BY MOUTH EVERY DAY. [...] # 90 unknown unit, 3 Refill(s), eRx: [facility] 95245, TAKE 1 TABLET BY MOUTH DAILY OR [...]
--- OUTSIDE RECORDS SUMMARY | 2017-01-19 07:42 | XMS REPORT | Referral Summary ---
Author Author [facility] Organization [facility] Address Unknown Phone Unavailable Care Team Providers Care Welder Assistant Name Role Phone Fatoumata Negron Primary Care Physician [phone] Encounter VC Date(s): 04/27/15 - 04/27/15 [facility] [address] [place], [place] [address] Discharge Disposition: 01-Home or Self Care Attending [...] # 90 tabs, 3 Refill(s), eRx : [facility] 25262, TAKE 1 TABLET BY MOUTH EVERY DAY Start Date: 04/26/15 Status: Ordered Aspir 81 81 mg, Oral, Daily, 1 tab, 0 Refill(s) Start Date: 05/26/14 Status: Ordered atorvastatin 10 mg oral tablet 10 mg 1 tabs, Oral, Bedtime (once a day), # 90 tabs, 3 Refill(s), [id number], 1 tabs Oral Bedtime (once a day) Start Date: 07/19/15 Status: Ordered carbidopa-levodopa 25 mg-100 mg oral tablet See Instructions, 1 TABS ORAL TID,INSTR:TAKE AT 7AM, 2PM, 9PM, # 90 tabs, 5 Refill(s), eRx: [facility] [id number], 1 TABS ORAL TID,INSTR:TAKE AT 7AM, 2PM, 9PM Start Date: 05/18/15 Status: Ordered Centrum Silver 0.4mg-300mcgmcg - 1 tab, Daily, 0 Refill(s) Start Date: 04/09/14 Status: Ordered Citracal + D 250MG-200UNITS - 2 CAPS, Oral, Daily, 0 Refill(s) Start Date: 04/09/14 Status: Ordered digoxin 125 mcg (0.125 mg) oral tablet 125 mcg 1 tabs, Oral, Daily, # 90 tabs, 3 Refill(s), [id number], 1 tabs Oral Daily Start Date: 07/06/15 Status: Ordered Diltiazem Hydrochloride ER 120 mg/24 hours oral capsule, extended release 120 mg 1 caps, Oral, Daily, # 30 caps, 3 Refill(s), Pharmacy: [facility] [id number], 1 caps Oral Daily Start Date: 08/17/15 Status: Ordered losartan 50 mg oral tablet 50 mg 1 tabs, Oral, Daily, # 90 tabs, 3 Refill(s), Pharmacy: [facility] [id number], 1 tabs Oral Daily Start Date: 07/06/15 Status: Ordered potassium chloride 20 mEq oral tablet, extended release See Instructions, 1 TABS ORAL DAILY, # 30 tabs, 3 Refill(s), eRx: [facility] [id number], 1 TABS ORAL DAILY Start Date: 08/16/15 Status: Ordered Reclast 5 mg/100 mL intravenous solution 5 mg 100 mL, IV, qYear, yearly, # 100 mL, 0 Refill(s), other reason (Rx) Start Date: 05/14/15 Stop Date: 05/14/16 Status: Ordered warfarin 1 mg oral tablet See Instructions, TAKE 1 TABLET BY MOUTH EVERY DAY, # 30 tabs, eRx: [facility] [id number], TAKE 1 TABLET BY MOUTH EVERY DAY [...]
--- OUTSIDE RECORDS SUMMARY | 2017-01-19 07:42 | XMS REPORT | Referral Summary ---
Author Author [facility] Organization [facility] Address Unknown Phone Unavailable Care Team Providers Care Marketing Analytics Analyst Name Role Phone Fatoumata Negron Primary Care Physician [phone] Encounter VC Date(s): 06/29/16 - 06/29/16 [facility] [address] [facility] [place], [place] [address] Discharge Diagnosis: Presence of permanent cardiac pacemaker Discharge Diagnosis: Parkinsonism Discharge Diagnosis: Fatigue Discharge Diagnosis: Chronic atrial fibrillation Discharge Diagnosis: Pericardial effusion Discharge Disposition: -Home or Self Care Attending Physician: Marco Antonio Kendall MD Admitting Physician: Marco Antonio Kendall MD Referring Physician: Yolie Negron MD Vital Signs Most recent to 1 oldest [Reference Range]: Peripheral Pulse 74 bpm Rate [60-100 bpm] (06/29/16 12:05 PM) Blood Pressure 130/70 mmHg [90-140/60-90 mmHg] (06/29/16 12:05 PM) Problem List Condition Effective Dates Status [...] day), # 90 tabs, 3 Refill(s), Pharmacy: [facility] [id number], 1 tabs Oral Bedtime (once a day) Start Date: 07/19/15 Status: Ordered carbidopa-levodopa 25 mg-100 mg oral tablet See Instructions, take 1.5 tabs at 7am and 3pm then 1 tab at 9pm., # 360 tabs, 0 Refill(s), Pharmacy: [facility] [id number] Start Date: 06/26/16 Status: Ordered Cartia XT 240 mg/24 hours oral capsule, extended release See Instructions, TAKE 1 CAPSULE BY MOUTH DAILY, # 30 caps, 4 Refill(s), eRx: [facility] [id number], TAKE 1 CAPSULE BY MOUTH DAILY Start Date: 06/01/16 Status: Ordered Centrum Silver 1 tabs, Oral, Daily, 0 Refill(s) Start Date: 04/09/14 Status: Ordered Citracal + D 250MG-200UNITS - 2 CAPS, Oral, Daily, 0 Refill(s) Start Date: 04/09/14 Status: Ordered digoxin 125 mcg (0.125 mg) oral tablet 125 mcg 1 tabs, Oral, Daily, # 90 tabs, 3 Refill(s), Pharmacy: [facility] [id number], 1 tabs Oral Daily Start Date: 07/06/15 Status: Ordered furosemide 20 mg oral tablet 20 mg 1 tabs, Oral, Daily, # 30 tabs, 0 Refill(s) Start Date: 06/29/16 Status: Ordered losartan 100 mg oral tablet 100 mg 1 tabs, Oral, Daily, home dose, # 90 tabs, 3 Refill(s), Pharmacy: [facility] [id number], 1 tabs Oral Daily,Instr:home dose Start Date: 11/25/15 Status: Ordered MiraLax oral powder for reconstitution 17 g, Oral, Daily, as needed, 0 Refill(s) Start Date: 12/10/15 Status: Ordered potassium chloride 20 mEq oral tablet, extended release See Instructions, TAKE 1 TABLET BY MOUTH TWICE DAILY, # 60 tabs, 8 Refill(s), eRx: [facility] [id number], TAKE 1 TABLET BY MOUTH TWICE DAILY [...] needed, # 15 tabs, 6 Refill(s), Pharmacy: [facility] [id number], 1 tabs oral twice weekly as needed [...]
--- OUTSIDE RECORDS SUMMARY | 2017-01-19 07:42 | XMS REPORT | Referral Summary ---
Author Author [facility] Organization [facility] Address Unknown Phone Unavailable Care Team Providers Care Pr Manager Name Role Phone Fatoumata Negron Primary Care Physician [phone] Encounter VC Date(s): 05/14/15 - 05/14/15 [facility] [address] [place] [address] [employer] [facility] [address] Discharge Diagnosis: SENILE OSTEOPOROSIS Discharge Disposition: 01-Home or Self Care Attending Physician: Yolie Negron MD Admitting Physician: Yolie Negron MD Vital Signs Most recent to 1 oldest [Reference Range]: Temperature Tympanic 36.0 degC [36.6-38.1 degC] *LOW* (05/14/15 10:06 AM) Peripheral Pulse 78 bpm Rate [60-100 bpm] (05/14/15 10:06 AM) Blood Pressure 124/82 mmHg [90-140/60-90 mmHg] (05/14/15 10:06 AM) Problem List Condition Effective Dates Status [...] day), # 90 tabs, 3 Refill(s), Pharmacy: [facility] [id number], 1 tabs Oral Bedtime (once a day) Start Date: 07/19/15 Status: Ordered Centrum Silver 1 tabs, Oral, Daily, 0 Refill(s) Start Date: 04/09/14 Status: Ordered Citracal + D 250MG-200UNITS - 2 CAPS, Oral, Daily, 0 Refill(s) Start Date: 04/09/14 Status: Ordered colchicine 0.6 mg oral tablet 0.6 mg 1 tabs, Oral, BID, # 60 tabs, 0 Refill(s) Start Date: 11/22/15 Stop Date: 12/20/15 Status: Ordered digoxin 125 mcg (0.125 mg) oral tablet 125 mcg 1 tabs, Oral, Daily, # 90 tabs, 3 Refill(s), Pharmacy: [facility] [id number], 1 tabs Oral Daily Start Date: 07/06/15 Status: Ordered diltiazem 240 mg/24 hours oral tablet, extended release 240 mg 1 tabs, Oral, Daily, rx given to patient, # 30 tabs, 0 Refill(s), other reason (Rx) Start Date: 11/22/15 Status: Ordered Klor-Con 10 mEq oral tablet, extended release 20 mEq 2 tabs, Oral, Daily, # 60 tabs, 0 Refill(s) Start Date: 11/22/15 Status: Ordered Lasix 20 mg oral tablet 20 mg 1 tabs, Oral, Daily, # 60 tabs, 0 Refill(s) Start Date: 11/22/15 Status: Ordered losartan 100 mg oral tablet 100 mg 1 tabs, Oral, Daily, home dose, # 30 tabs, 0 Refill(s), other reason (Rx) Start Date: 11/22/15 Status: Ordered MiraLax oral powder for reconstitution 17 g, Oral, Daily, dissolve in water before taking, # 255 g, 0 Refill(s), other reason (Rx) Start Date: 11/22/15 Stop Date: 11/29/15 Status: Ordered Reclast 5 mg/100 mL intravenous solution 5 mg 100 mL, IV, qYear, yearly, # 100 mL, 0 Refill(s), other reason (Rx) Start Date: 05/14/15 Stop Date: 05/14/16 Status: Ordered Senokot S 50 mg-8.6 mg oral tablet 1 tabs, Oral, BID, # 30 tabs, 0 Refill(s), other reason (Rx) Start Date: 11/22/15 Stop Date: 11/29/15 Status: Ordered Sinemet 25 mg-100 mg oral [...] smoker Assessment and Plan Extracted from: Title: 3rd Year Reclast given Author: Shaina Carrillo RN Date: 05/14/15 IV started in Lt antecubital space with #22 Protect Needle without difficulty. Reclast 5mg/100 ml hung to infuse over 20 minutes per pump. Pt tolerated Reclast infusion well and left ambulatory without difficulty. Encouraged pt to drink plenty of fluids the next 24 hr.
--- OUTSIDE RECORDS SUMMARY | 2017-01-19 07:43 | XMS REPORT | Referral Summary ---
Author Author [facility] Organization [facility] Address Unknown Phone Unavailable Care Team Providers Care Die Forger Name Role Phone Fatoumata Negron Primary Care Physician [phone] Encounter Date(s): 06/16/15 - 06/16/15 [facility] [address] [place], [place] [address] Discharge Diagnosis: Presence of permanent cardiac pacemaker Discharge Diagnosis: Sinus node dysfunction Discharge Diagnosis: AF (atrial fibrillation) Discharge Disposition: 01-Home or Self Care Attending Physician: Bhumika Torrez APRN Admitting Physician: Bhumika Torrez APRN Referring Physician: Yolie Negron MD Vital Signs Most recent to 1 oldest [Reference Range]: Peripheral Pulse 84 bpm Rate [60-100 bpm] (06/16/15 10:40 AM) Blood Pressure 124/72 mmHg [90-140/60-90 mmHg] (06/16/15 10:40 AM) Problem List Condition Effective Dates Status [...] day), # 90 tabs, 3 Refill(s), Pharmacy: [facility] [id number], 1 tabs Oral Bedtime (once a day) Start Date: 07/19/15 Status: Ordered carbidopa-levodopa 25 mg-100 mg oral tablet See Instructions, 1 TABS ORAL TID, # 90 tabs, 5 Refill(s), eRx: [facility] [id number], 1 TABS ORAL TID Start Date: 12/06/15 Status: Ordered Centrum Silver 1 tabs, Oral, Daily, 0 Refill(s) Start Date: 04/09/14 Status: Ordered Citracal + D 250MG-200UNITS - 2 CAPS, Oral, Daily, 0 Refill(s) Start Date: 04/09/14 Status: Ordered colchicine 0.6 mg oral tablet 0.6 mg 1 tabs, Oral, BID, # 60 tabs, 0 Refill(s), Pharmacy: [facility] [id number], 1 tabs Oral BID Start Date: 12/21/15 Status: Ordered digoxin 125 mcg (0.125 mg) oral tablet 125 mcg 1 tabs, Oral, Daily, # 90 tabs, 3 Refill(s), Pharmacy: [facility] [id number], 1 tabs Oral Daily Start Date: 07/06/15 Status: Ordered Diltiazem Hydrochloride ER 240 mg/24 hours oral capsule, extended release 240 mg 1 caps, Oral, Daily, 0 Refill(s) Start Date: 12/10/15 Status: Ordered furosemide 20 mg oral tablet 20 mg 1 tabs, Oral, Daily, # 90 tabs, 0 Refill(s) Start Date: 12/10/15 Status: Ordered losartan 100 mg oral tablet 100 mg 1 tabs, Oral, Daily, home dose, # 90 tabs, 3 Refill(s), Pharmacy: [facility] [id number], 1 tabs Oral Daily,Instr:home dose Start Date: 11/25/15 Status: Ordered MiraLax oral powder for reconstitution 17 g, Oral, Daily, as needed, 0 Refill(s) Start Date: 12/10/15 Status: Ordered potassium chloride 20 mEq oral tablet, extended release 20 mEq 1 tabs, Oral, Daily, # 30 tabs, 0 Refill(s) Start Date: 12/10/15 Status: Ordered Reclast 5 mg/100 mL intravenous [...] needed, # 15 tabs, 6 Refill(s), Pharmacy: [facility] [id number], 1 tabs oral twice weekly as needed [...] Extracted from: Title: Ambulatory Patient Education Author: Bhumika Torrez APRN Date: 10/19 Procedures Electrical Cardioversion Electrical cardioversion is the delivery of a jolt of electricity to change the rhythm of the heart. Sticky patches or metal paddles are placed on the chest to deliver the electricity from a device. This is done to restore a normal rhythm. A rhythm that is too fast or not regular keeps the heart from pumping well. Electrical cardioversion is done in an emergency if: There is low or no blood pressure as a result of the heart rhythm. Normal rhythm must be restored as fast as possible to protect the brain and heart from further damage. It may save a life. Cardioversion may be done for heart rhythms that are not immediately life- threatening, such as atrial fibrillation or flutter, in which: The heart is beating too fast or is not regular. Medicine to change the rhythm has not worked. It is safe to wait in order to allow time for preparation. Symptoms of the abnormal rhythm are bothersome. The risk of stroke and other serious complications can be reduced. LET YOUR CAREGIVER KNOW ABOUT: All medicines you are taking, including vitamins, herbs, eye drops, creams , and cyic-uxg-fplwtvs medicines. Previous problems you or members of your family have had with the use of anesthetics. Any blood disorders you have. Previous surgeries you have had. Medical conditions you have. RISKS AND COMPLICATIONS Generally, this is a safe procedure. However, as with any procedure, complications can occur. Possible complications include: Breathing problems related to the anesthetic used. Cardiac arrestThis risk is rare. A blood clot that breaks free and travels to other parts of your body. This could cause a stroke or other problems. The risk of this is lowered by use of blood thinning medicine (anticoagulant) prior to the procedure. BEFORE THE PROCEDURE You may have tests to detect blood clots in your heart and evaluate heart function. You may start taking anticoagulants so your blood does not clot as easily. Medicines may be given to help stabilize your heart rate and rhythm. PROCEDURE You will be given medicine through an IV tube to reduce discomfort and make you sleepy (sedative). An electrical shock will be delivered. AFTER THE PROCEDURE Your heart rhythm will be watched to make sure it does not change.You may be able to go home within a few hours. Document Released: 10/12/2003 Document Revised: 08/12/2014 Document Reviewed: [employer] Patient Information 2015 [employer]. This information is not intended to replace advice given to you by your health care provider. Make sure you discuss any questions you have with your health care provider. No follow up information was provided. Extracted from: Title: Office Visit Note Author: Bhumika Torrez APRN Date: 06/16/15 Assessment/Plan AF (atrial fibrillation) Ordered: Return to Clinic Presence of permanent cardiac pacemaker Sinus node dysfunction Referrals to Other Providers Referred by: Bhumika Torrez APRN
--- OUTSIDE RECORDS SUMMARY | 2017-01-19 07:43 | XMS REPORT | Referral Summary ---
Author Author [facility] Organization [facility] Address Unknown Phone Unavailable Care Team Providers Care Seo Manager Name Role Phone Fatoumata Negron Primary Care Physician [phone] Encounter VC Date(s): 12/27/16 - 12/27/[address] [facility] [address] [facility] [address] [place], [place] [address] Discharge Disposition: 01-Home or Self Care Attending Physician: Aris Faith MD Admitting Physician: Aris Faith MD Referring Physician: Aris Faith MD Vital Signs Most recent to 1 oldest [Reference Range]: Peripheral Pulse 72 bpm Rate [60-100 bpm] (12/27/16 11:52 AM) Blood Pressure 120/82 mmHg [90-140/60-90 mmHg] (12/27/16 11:52 AM) Problem List Condition Effective Dates Status [...] See Instructions, TAKE 1 TABLET BY MOUTH AT BEDTIME, # 90 tabs, 6 Refill(s), eRx : [facility] [id number], TAKE 1 TABLET BY MOUTH AT BEDTIME Start Date: 10/09/16 Status: Ordered carbidopa-levodopa 25 mg-100 mg oral tablet See Instructions, TAKE 1 AND 1/2 TABLETS BY MOUTH AT 7 AM AND AT 3 PM THEN TAKE 1 TABLET BY MOUTH AT 9 PM, # 360 tabs, eRx: [facility] [id number] Start Date: 12/18/16 Status: Ordered Cartia XT 240 mg/24 hours oral capsule, extended release 240 mg 1 caps, Oral, Daily, # 30 caps, 5 Refill(s), eRx: [facility] [id number] Start Date: 11/28/16 Status: Ordered Centrum Silver 1 tabs, Oral, Daily, 0 Refill(s) Start Date: 04/09/14 Status: Ordered digoxin 125 mcg (0.125 mg) oral tablet See Instructions, TAKE 1 TABLET BY MOUTH EVERY DAY, # 90 tabs, 8 Refill(s), eRx : [facility] [id number], TAKE 1 TABLET BY MOUTH EVERY DAY Start Date: 07/24/16 Status: Ordered furosemide 20 mg oral tablet 20 mg 1 tabs, Oral, Daily, # 30 tabs, 5 Refill(s), Pharmacy: [facility] [id number], 1 tabs Oral Daily Start Date: 10/27/16 Status: Ordered losartan 100 mg oral tablet See Instructions, TAKE 1 TABLET BY MOUTH DAILY, # 90 tabs, 4 Refill(s), eRx: [facility] [id number] Start Date: 11/23/16 Status: Ordered metolazone 2.5 mg oral tablet See Instructions, TAKE 1 TABLET BY MOUTH TWICE A WEEK NEEDED, # 15 tabs, 4 Refill(s), eRx: [facility] [id number], TAKE 1 TABLET BY MOUTH TWICE A WEEK NEEDED Start Date: 12/19/16 Status: Ordered MiraLax oral powder for reconstitution 17 g, Oral, Daily, as needed, 0 Refill(s) Start Date: 12/10/15 Status: Ordered potassium chloride 20 mEq oral tablet, extended release See Instructions, TAKE 1 TABLET BY MOUTH TWICE DAILY, # 60 tabs, 8 Refill(s), eRx: [facility] 06656, TAKE 1 TABLET BY MOUTH TWICE DAILY Start Date: 06/16/16 Status: Ordered Reclast 5 mg/100 mL intravenous solution 5 mg 100 mL, IV, qYear, yearly, # 100 mL, 0 Refill(s), other reason (Rx) Start Date: 05/14/15 Stop Date: 05/14/16 Status: Ordered warfarin 4 mg oral tablet See Instructions, Take half a tablet Sun/Tues/Thurs/Sat or as instructed by your warfarin provider., # 30 tabs, 3 Refill(s), Pharmacy: [facility] [id number], Take half a tablet Sun/Tues/Thurs/Sat or as instructed by your warfarin provider. Start Date: 08/03/16 Status: Ordered Results No data available for this section Immunizations Given and Recorded Vaccine Date Status Refusal Reason hepatitis A pediatric vaccine 09/03/98 Given hepatitis A pediatric vaccine 02/25/98 Given pneumococcal 13-valent conjugate vaccine 11/10/14 Given pneumococcal 23-polyvalent vaccine 11/30/08 Recorded tetanus-diphth toxoids (Td) adult/adol 11/25/07 Given Procedures Procedure Date Related Diagnosis Body Site [...]
--- OUTSIDE RECORDS SUMMARY | 2017-01-19 07:43 | XMS REPORT | Referral Summary ---
Author Organization Unknown Address Unknown Phone Unavailable Care Team Providers Care Jd Edwards Consultant Name Role Phone Fatoumata Negron Primary Care Physician [phone] Encounter VC Date(s): 01/11/15 - 01/11/15 [facility] [place] [address] Discharge Disposition: Home or Self Care Attending Physician: Yolie Negron MD Admitting Physician: Yolie Negron MD Vital Signs No [...] EVERY DAY, # 90 unknown unit, eRx: [facility] [id number], TAKE 1 TABLET (10MG) BY ORAL ROUTE EVERY DAY Special Instructions: TAKE 1 TABLET (10MG) BY ORAL ROUTE EVERY DAY Start Date: 10/26/14 Status: Ordered carbidopa-levodopa 10 mg-100 mg oral tablet See Instructions, TAKE 1 TABLET BY MOUTH THREE TIMES DAILY, # 270 tabs, 0 Refill (s), Pharmacy: [facility] [id number] Special Instructions: TAKE 1 TABLET BY MOUTH THREE TIMES DAILY Start Date: 12/28/14 Status: Ordered Centrum Silver 0.4mg-300mcgmcg - 1 tab, Daily, 0 Refill(s) Start Date: 04/09/14 Status: Ordered cephalexin 250 mg oral tablet 1 tabs, Oral, QID, X 7 days, # 28 tabs, 0 Refill(s), [facility], 1 tabs Oral QID,x7 days Start Date: 01/09/15 Stop Date: 01/16/15 Status: Ordered Citracal + D 250MG-200UNITS - 2 CAPS, Oral, Daily, 0 Refill(s) Start Date: 04/09/14 Status: Ordered Coumadin 4 mg oral tablet See Instructions, 1 TABS ORAL DAILY, # 30 tabs, 3 Refill(s), [id number], 1 TABS ORAL DAILY Special Instructions: 1 TABS ORAL DAILY Start Date: 07/30/14 Status: Ordered digoxin 125 mcg (0.125 mg) oral tablet 1 tabs, Oral, Daily, 0 Refill(s) Start Date: 04/09/14 Status: Ordered flecainide 50 mg oral tablet See Instructions, 1.5 TABS ORAL Q12HR, # 270 tabs, 2 Refill(s), [facility] [id number], 1.5 TABS ORAL Q12HR Special Instructions: 1.5 TABS ORAL Q12HR Start Date: 09/23/14 Status: Ordered losartan 50 mg oral tablet See Instructions, TAKE 1 TABLET BY MOUTH EVERY DAY., # 90 unknown unit, 2 Refill (s), [facility], TAKE 1 TABLET BY MOUTH EVERY DAY. Special Instructions: TAKE 1 TABLET BY MOUTH EVERY DAY. Start Date: 11/03/14 Status: Ordered [place] 5 mg-325 mg oral tablet 1 tabs, Oral, q4hr, as needed for pain, X 7 days, # 42 tabs, 0 Refill(s) Start Date: 01/05/15 Stop Date: 01/12/15 Status: Ordered Norvasc 5 mg oral tablet [...] # 90 unknown unit, 3 Refill(s), eRx: [facility] [id number], TAKE 1 TABLET BY MOUTH DAILY OR [...]
--- OUTSIDE RECORDS SUMMARY | 2017-01-19 07:43 | XMS REPORT | Referral Summary ---
Author Organization Unknown Address Unknown Phone Unavailable Care Team Providers Care Clinical Laboratory Technologist Name Role Phone Fatoumata Negron Primary Care Physician [phone] Encounter VC Date(s): 01/07/15 - 01/07/15 [facility], [address] [place] [address] Discharge Disposition: Home or Self Care Attending [...] EVERY DAY, # 90 unknown unit, eRx: [facility] 77503, TAKE 1 TABLET (10MG) BY ORAL ROUTE EVERY DAY Special Instructions: TAKE 1 TABLET (10MG) BY ORAL ROUTE EVERY DAY Start Date: 10/26/14 Status: Ordered carbidopa-levodopa 10 mg-100 mg oral tablet See Instructions, TAKE 1 TABLET BY MOUTH THREE TIMES DAILY, # 270 tabs, 0 Refill (s), Pharmacy: [facility] [id number] Special Instructions: TAKE 1 TABLET BY MOUTH THREE TIMES DAILY Start Date: 12/28/14 Status: Ordered Centrum Silver 0.4mg-300mcgmcg - 1 tab, Daily, 0 Refill(s) Start Date: 04/09/14 Status: Ordered Citracal + D 250MG-200UNITS - 2 CAPS, Oral, Daily, 0 Refill(s) Start Date: 04/09/14 Status: Ordered Coumadin 4 mg oral tablet See Instructions, 1 TABS ORAL DAILY, # 30 tabs, 3 Refill(s), eRx: [facility] [id number], 1 TABS ORAL DAILY Special Instructions: 1 TABS ORAL DAILY Start Date: 07/30/14 Status: Ordered digoxin 125 mcg (0.125 mg) oral tablet 1 tabs, Oral, Daily, 0 Refill(s) Start Date: 04/09/14 Status: Ordered flecainide 50 mg oral tablet See Instructions, 1.5 TABS ORAL Q12HR, # 270 tabs, 2 Refill(s), eRx: [facility] [id number], 1.5 TABS ORAL Q12HR Special Instructions: 1.5 TABS ORAL Q12HR Start Date: 09/23/14 Status: Ordered losartan 50 mg oral tablet See Instructions, TAKE 1 TABLET BY MOUTH EVERY DAY., # 90 unknown unit, 2 Refill (s), [facility], TAKE 1 TABLET BY MOUTH EVERY DAY. Special Instructions: TAKE 1 TABLET BY MOUTH EVERY DAY. Start Date: 11/03/14 Status: Ordered [place] 5 mg-325 mg oral tablet 1 tabs, [...] # 90 unknown unit, 3 Refill(s), eRx: [facility] 14180, TAKE 1 TABLET BY MOUTH DAILY OR [...]
--- OUTSIDE RECORDS SUMMARY | 2017-01-19 07:43 | XMS REPORT | Referral Summary ---
Author Author [facility] Organization [facility] Address Unknown Phone Unavailable Care Team Providers Care Dermatologist Managing Partner Name Role Phone Fatoumata Negron Primary Care Physician [phone] Encounter VC Date(s): 07/23/15 - 07/23/15 [facility] [address] [place] [address] Discharge Disposition: 01-Home or Self Care Attending Physician: Maria Elena Beauchamp APRN Admitting Physician: Maria Elena Beauchamp APRN Vital Signs No data available for this [...] day), # 90 tabs, 3 Refill(s), Pharmacy: [facility] [id number], 1 tabs Oral Bedtime (once a day) Start Date: 07/19/15 Status: Ordered carbidopa-levodopa 25 mg-100 mg oral tablet See Instructions, 1 TABS ORAL TID, # 90 tabs, 5 Refill(s), eRx: [facility] 14433, 1 TABS ORAL TID Start Date: 12/06/15 Status: Ordered Centrum Silver 1 tabs, Oral, Daily, 0 Refill(s) Start Date: 04/09/14 Status: Ordered Citracal + D 250MG-200UNITS - 2 CAPS, Oral, Daily, 0 Refill(s) Start Date: 04/09/14 Status: Ordered colchicine 0.6 mg oral tablet 0.6 mg 1 tabs, Oral, BID, # 60 tabs, 0 Refill(s), Pharmacy: [facility] 69946, 1 tabs Oral BID Start Date: 12/21/15 Status: Ordered digoxin 125 mcg (0.125 mg) oral tablet 125 mcg 1 tabs, Oral, Daily, # 90 tabs, 3 Refill(s), Pharmacy: [facility] 19343, 1 tabs Oral Daily Start Date: 07/06/15 Status: Ordered Diltiazem Hydrochloride ER 240 mg/24 hours oral capsule, extended release 240 mg 1 caps, Oral, Daily, # 30 caps, 0 Refill(s), Pharmacy: [facility] 74038, 1 caps Oral Daily Start Date: 01/06/16 Status: Ordered furosemide 40 mg oral tablet See Instructions, TAKE 1 TABLET BY MOUTH EVERY DAY, # 30 tabs, eRx: [facility] 59189, TAKE 1 TABLET BY MOUTH EVERY DAY Start Date: 01/06/16 Status: Ordered losartan 100 mg oral tablet 100 mg 1 tabs, Oral, Daily, home dose, # 90 tabs, 3 Refill(s), Pharmacy: [facility] 76719, 1 tabs Oral Daily,Instr:home dose Start Date: 11/25/15 Status: Ordered MiraLax oral powder for reconstitution 17 g, Oral, Daily, as needed, 0 Refill(s) Start Date: 12/10/15 Status: Ordered potassium chloride 20 mEq oral tablet, extended release See Instructions, TAKE 1 TABLET BY MOUTH TWICE DAILY, # 60 tabs, eRx: [facility] [id number], TAKE 1 TABLET BY MOUTH TWICE DAILY [...] needed, # 15 tabs, 6 Refill(s), Pharmacy: [facility] [id number], 1 tabs oral twice weekly as needed [...]
--- OUTSIDE RECORDS SUMMARY | 2017-01-19 07:43 | XMS REPORT | Referral Summary ---
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 Discharge Diagnosis: Polyserositis Discharge Diagnosis: Chronic atrial fibrillation Discharge Disposition: 01-Home or Self Care Attending Physician: Marco Antonio Kendall MD Admitting Physician: Marco Antonio Kendall MD Referring Physician: Yolie Negron MD Vital Signs Most recent to 1 oldest [Reference Range]: Peripheral Pulse 78 bpm Rate [60-100 bpm] (12/10/15 11:06 AM) Blood Pressure 122/70 mmHg [90-140/60-90 mmHg] (12/10/15 11:06 AM) Problem List Condition Effective Dates Status [...] day), # 90 tabs, 3 Refill(s), Pharmacy: [id number], 1 tabs Oral Bedtime (once a day) Start Date: 07/19/15 Status: Ordered carbidopa-levodopa 25 mg-100 mg oral tablet See Instructions, 1 TABS ORAL TID, # 90 tabs, 5 Refill(s), eRx: [facility] [id number], 1 TABS ORAL TID Start Date: 12/06/15 Status: Ordered Centrum Silver 1 tabs, Oral, Daily, 0 Refill(s) Start Date: 04/09/14 Status: Ordered Citracal + D 250MG-200UNITS - 2 CAPS, Oral, Daily, 0 Refill(s) Start Date: 04/09/14 Status: Ordered colchicine 0.6 mg oral tablet 0.6 mg 1 tabs, Oral, BID, # 60 tabs, 0 Refill(s), Pharmacy: [facility] 74209, 1 tabs Oral BID Start Date: 12/10/15 Status: Ordered digoxin 125 mcg (0.125 mg) oral tablet 125 mcg 1 tabs, Oral, Daily, # 90 tabs, 3 Refill(s), Pharmacy: [facility] 57652, 1 tabs Oral Daily Start Date: 07/06/15 [...] dose, # 90 tabs, 3 Refill(s), Pharmacy: [facility] 38882, 1 tabs Oral Daily,Instr:home dose Start Date: [...] needed, # 15 tabs, 6 Refill(s), Pharmacy: [facility] 06455, 1 tabs oral twice weekly as needed [...] Smoking Status Never smoker Assessment and Plan Referrals to Other Providers Referred by: Marco Antonio Kendall MD
--- OUTSIDE RECORDS SUMMARY | 2017-01-19 07:43 | XMS REPORT | Referral Summary ---
Author Author [facility], [facility] Organization [facility] Address Unknown Phone Unavailable Care Team Providers Care Polymer Tester Name Role Phone Fatoumata Negron Primary Care Physician [phone] Encounter VC Date(s): 03/25/15 - 03/25/15 [facility], [address] [place] [address] Discharge Diagnosis: Seborrheic keratoses Discharge Disposition: 01-Home or Self Care Attending Physician: Clare Ag APRN Admitting Physician: Clare Ag APRN Vital Signs Most recent to 1 oldest [Reference Range]: Temperature Oral 36.6 degC [35.8-37.3 degC] (03/25/15 1:33 PM) Peripheral Pulse 70 bpm Rate [60-100 bpm] (03/25/15 1:33 PM) Blood Pressure 130/60 mmHg [90-140/60-90 mmHg] (03/25/15 1:33 PM) Problem List Condition Effective Dates Status [...] # 90 tabs, 3 Refill(s), eRx : [facility] [id number], TAKE 1 TABLET BY MOUTH EVERY DAY Start Date: 04/26/15 Status: Ordered Aspir 81 81 mg, Oral, Daily, 1 tab, 0 Refill(s) Start Date: 05/26/14 Status: Ordered atorvastatin 10 mg oral tablet 10 mg 1 tabs, Oral, Bedtime (once a day), # 90 tabs, 3 Refill(s), Pharmacy: [facility] 87357, 1 tabs Oral Bedtime (once a day) Start Date: 07/19/15 Status: Ordered carbidopa-levodopa 25 mg-100 mg oral tablet See Instructions, 1 TABS ORAL TID,INSTR:TAKE AT 7AM, 2PM, 9PM, # 90 tabs, 5 Refill(s), eRx: [facility] [id number], 1 TABS ORAL TID,INSTR:TAKE AT 7AM, 2PM, 9PM Start Date: 05/18/15 Status: Ordered Centrum Silver 0.4mg-300mcgmcg - 1 tab, Daily, 0 Refill(s) Start Date: 04/09/14 Status: Ordered Citracal + D 250MG-200UNITS - 2 CAPS, Oral, Daily, 0 Refill(s) Start Date: 04/09/14 Status: Ordered digoxin 125 mcg (0.125 mg) oral tablet 125 mcg 1 tabs, Oral, Daily, # 90 tabs, 3 Refill(s), Pharmacy: [facility] [id number], 1 tabs Oral Daily Start Date: 07/06/15 Status: Ordered Diltiazem Hydrochloride ER 120 mg/24 hours oral capsule, extended release 120 mg 1 caps, Oral, Daily, # 30 caps, 3 Refill(s), Pharmacy: [facility] 24308, 1 caps Oral Daily Start Date: 08/17/15 Status: Ordered losartan 50 mg oral tablet 50 mg 1 tabs, Oral, Daily, # 90 tabs, 3 Refill(s), Pharmacy: [facility] 30406, 1 tabs Oral Daily Start Date: 07/06/15 Status: Ordered potassium chloride 20 mEq oral tablet, extended release See Instructions, 1 TABS ORAL DAILY, # 30 tabs, 3 Refill(s), eRx: [facility] 61925, 1 TABS ORAL DAILY Start Date: 08/16/15 Status: Ordered Reclast 5 mg/100 mL intravenous solution 5 mg 100 mL, IV, qYear, yearly, # 100 mL, 0 Refill(s), other reason (Rx) Start Date: 05/14/15 Stop Date: 05/14/16 Status: Ordered warfarin 1 mg oral tablet See Instructions, TAKE 1 TABLET BY MOUTH EVERY DAY, # 30 tabs, eRx: [facility] 70240, TAKE 1 TABLET BY MOUTH EVERY DAY [...] Extracted from: Title: Ambulatory Patient Education Author: Clare Ag APRN Date : 03/25/15 Family Medicine Seborrheic Keratosis Seborrheic keratosis is a common, noncancerous (benign ) skin growth that can occur anywhere on the skin.It looks like "stuck-on," waxy, rough, rodriguez, brown, or black spots on the skin. These skin growths can be flat or raised.They are often called "barnacles" because of their pasted-on appearance.Usually, these skin growths appear in adulthood, around age 30, and increase in number as you age. They may also develop during or following estrogen therapy. Many people may only have one growth appear in their lifetime, while some people may develop many growths. CAUSES It is unknown what causes these skin growths, but they appear to run in families. SYMPTOMS Seborrheic keratosis is often located on the face, chest, shoulders, back, or other areas. These growths are: Usually painless, but may become irritated and itchy. Yellow, brown, black, or other colors. Slightly raised or have a flat surface. Sometimes rough or wart-like in texture. Often waxy on the surface. Round or oval-shaped. Sometimes "stuck-on" in appearance. Sometimes single, but there are usually many growths. Any growth that bleeds, itches on a regular basis, becomes inflamed, or becomes irritated needs to be evaluated by a skin installer (drill bit sharpener ). DIAGNOSIS Diagnosis is mainly based on the way the growths appear. In some cases, it can be difficult to tell this type of skin growth from skin cancer. A skin growth tissue sample (biopsy ) may be used to confirm the diagnosis. TREATMENT Most often, treatment is not needed because the skin growths are benign.If the skin growth is irritated easily by clothing or jewelry, causing it to scab or bleed, treatment may be recommended. Patients may also choose to have the growths removed because they do not like their appearance. Most commonly, these growths are treated with cryosurgery. In cryosurgery, liquid nitrogen is applied to "freeze" the growth. The growth usually falls off within a matter of days. A blister may form and dry into a scab that will also fall off. After the growth or scab falls off, it may leave a dark or light spot on the skin. This color may fade over time, or it may remain permanent on the skin. HOME CARE INSTRUCTIONS If the skin growths are treated with cryosurgery, the treated area needs to be kept clean with water and soap. SEEK MEDICAL CARE IF: You have questions about these growths or other skin problems. You develop new symptoms, including: A change in the appearance of the skin growth. New growths. Any bleeding, itching, or pain in the growths. A skin growth that looks similar to seborrheic keratosis. Document Released: 11/24/2011 Document Revised: 01/13/2013 Document Reviewed: ExitCare Patient Information 2014 [employer], [facility]. No follow up information was provided. Extracted from: Title: Office Visit Note Author: Clare Ag APRN Date: 03/25/15 Assessment/Plan 1.Seborrheic keratoses benign lesions. reassurance provided. let us know if s/s persist or worsen.
--- OUTSIDE RECORDS SUMMARY | 2017-01-19 07:43 | XMS REPORT | Referral Summary ---
Author Author [facility] Organization [facility] Address Unknown Phone Unavailable Care Team Providers Care Manufacturing Lab Technician Name Role Phone Fatoumata Negron Primary Care Physician [phone] Encounter VC Date(s): 12/10/15 - 12/10/15 [facility] [address] [place], [place] [address] Discharge Disposition: 01-Home or Self [...] day), # 90 tabs, 3 Refill(s), Pharmacy: [facility] 56637, 1 tabs Oral Bedtime (once a day) Start Date: 07/19/15 Status: Ordered carbidopa-levodopa 25 mg-100 mg oral tablet See Instructions, 1 TABS ORAL TID, # 90 tabs, 5 Refill(s), eRx: [facility] [id number], 1 TABS ORAL TID Start Date: 12/06/15 Status: Ordered Centrum Silver 1 tabs, Oral, Daily, 0 Refill(s) Start Date: 04/09/14 Status: Ordered Citracal + D 250MG-200UNITS - 2 CAPS, Oral, Daily, 0 Refill(s) Start Date: 04/09/14 Status: Ordered colchicine 0.6 mg oral tablet 0.6 mg 1 tabs, Oral, BID, # 60 tabs, 0 Refill(s), Pharmacy: [facility] 08468, 1 tabs Oral BID Start Date: 12/10/15 Status: Ordered digoxin 125 mcg (0.125 mg) oral tablet 125 mcg 1 tabs, Oral, Daily, # 90 tabs, 3 Refill(s), Pharmacy: [facility] 75931, 1 tabs Oral Daily Start Date: 07/06/15 [...] dose, # 90 tabs, 3 Refill(s), Pharmacy: [facility] 25239, 1 tabs Oral Daily,Instr:home dose Start Date: [...] needed, # 15 tabs, 6 Refill(s), Pharmacy: [facility] 55499, 1 tabs oral twice weekly as needed [...]
--- OUTSIDE RECORDS SUMMARY | 2017-01-19 07:43 | XMS REPORT | Referral Summary ---
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 Discharge Diagnosis: AF (atrial fibrillation) Discharge Disposition: 01-Home or Self Care Attending Physician: Marco Antonio Kendall MD Admitting Physician: Marco Antonio Kendall MD Referring Physician: Yolie Negron MD Vital Signs Most recent to 1 oldest [Reference Range]: Peripheral Pulse 70 bpm Rate [60-100 bpm] (08/03/15 11:45 AM) Blood Pressure 124/72 mmHg [90-140/60-90 mmHg] (08/03/15 11:45 AM) Problem List Condition Effective Dates Status Health Status Informant Gait Active disturbance(Confirme d) Atrial Resolved fibrillation(Confirm ed) Meningioma(Confirmed Active ) Presence of Active permanent cardiac pacemaker(Confirmed) Carotid artery RT Resolved neck, LT leg(Confirmed)1 AF (atrial Active fibrillation)(Confir med) 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)2 Decreased vibratory Active sense(Confirmed) Carotid [...] # 90 tabs, 3 Refill(s), eRx : [facility] [id number], TAKE 1 TABLET BY MOUTH EVERY DAY Start Date: 04/26/15 Status: Ordered Aspir 81 81 mg, Oral, Daily, 1 tab, 0 Refill(s) Start Date: 05/26/14 Status: Ordered atorvastatin 10 mg oral tablet 10 mg 1 tabs, Oral, Bedtime (once a day), # 90 tabs, 3 Refill(s), Pharmacy: [facility] 16516, 1 tabs Oral Bedtime (once a day) Start Date: 07/19/15 Status: Ordered carbidopa-levodopa 25 mg-100 mg oral tablet See Instructions, 1 TABS ORAL TID,INSTR:TAKE AT 7AM, 2PM, 9PM, # 90 tabs, 5 Refill(s), eRx: [facility] [id number], 1 TABS ORAL TID,INSTR:TAKE AT 7AM, 2PM, 9PM Start Date: 05/18/15 Status: Ordered Centrum Silver 0.4mg-300mcgmcg - 1 tab, Daily, 0 Refill(s) Start Date: 04/09/14 Status: Ordered Citracal + D 250MG-200UNITS - 2 CAPS, Oral, Daily, 0 Refill(s) Start Date: 04/09/14 Status: Ordered digoxin 125 mcg (0.125 mg) oral tablet 125 mcg 1 tabs, Oral, Daily, # 90 tabs, 3 Refill(s), Pharmacy: [facility] 39665, 1 tabs Oral Daily Start Date: 07/06/15 Status: Ordered losartan 50 mg oral tablet 50 mg 1 tabs, Oral, Daily, # 90 tabs, 3 Refill(s), Pharmacy: [facility] 06255, 1 tabs Oral Daily Start Date: 07/06/15 Status: Ordered potassium chloride 20 mEq oral tablet, extended release See Instructions, 1 TABS ORAL DAILY, # 30 tabs, 3 Refill(s), eRx: [facility] 56702, 1 TABS ORAL DAILY Start Date: 04/21/15 Status: Ordered Reclast 5 mg/100 mL intravenous solution 5 mg 100 mL, IV, qYear, yearly, # 100 mL, 0 Refill(s), other reason (Rx) Start Date: 05/14/15 Stop Date: 05/14/16 Status: Ordered warfarin 3 mg, Oral, Daily, 0 Refill(s) Start Date: 07/07/15 Status: Ordered Results No data available for [...]
--- OUTSIDE RECORDS SUMMARY | 2017-01-19 07:43 | XMS REPORT | Referral Summary ---
Author Author [facility] Organization [facility] Address Unknown Phone Unavailable Care Team Providers Care International Accounting Manager Name Role Phone Fatoumata Negron Primary Care Physician [phone] Encounter VC Date(s): 07/19/15 - 07/19/15 [facility] [address] [place] [address] Discharge Disposition: 01-Home or Self Care [...] day), # 90 tabs, 3 Refill(s), Pharmacy: [facility] 74661, 1 tabs Oral Bedtime (once a day) Start Date: 07/19/15 Status: Ordered carbidopa-levodopa 25 mg-100 mg oral tablet See Instructions, 1 TABS ORAL TID, # 90 tabs, 5 Refill(s), eRx: [facility] 15964, 1 TABS ORAL TID Start Date: 12/06/15 Status: Ordered Centrum Silver 1 tabs, Oral, Daily, 0 Refill(s) Start Date: 04/09/14 Status: Ordered Citracal + D 250MG-200UNITS - 2 CAPS, Oral, Daily, 0 Refill(s) Start Date: 04/09/14 Status: Ordered colchicine 0.6 mg oral tablet 0.6 mg 1 tabs, Oral, BID, # 60 tabs, 0 Refill(s), Pharmacy: [facility] 65636, 1 tabs Oral BID Start Date: 12/21/15 Status: Ordered digoxin 125 mcg (0.125 mg) oral tablet 125 mcg 1 tabs, Oral, Daily, # 90 tabs, 3 Refill(s), Pharmacy: [facility] 56305, 1 tabs Oral Daily Start Date: 07/06/15 Status: Ordered Diltiazem Hydrochloride ER 240 mg/24 hours oral capsule, extended release 240 mg 1 caps, Oral, Daily, # 30 caps, 0 Refill(s), Pharmacy: [facility] 49935, 1 caps Oral Daily Start Date: 01/06/16 Status: Ordered furosemide 40 mg oral tablet See Instructions, TAKE 1 TABLET BY MOUTH EVERY DAY, # 30 tabs, eRx: [facility] [id number], TAKE 1 TABLET BY MOUTH EVERY DAY Start Date: 01/06/16 Status: Ordered losartan 100 mg oral tablet 100 mg 1 tabs, Oral, Daily, home dose, # 90 tabs, 3 Refill(s), Pharmacy: [facility] 03470, 1 tabs Oral Daily,Instr:home dose Start Date: 11/25/15 Status: Ordered MiraLax oral powder for reconstitution 17 g, Oral, Daily, as needed, 0 Refill(s) Start Date: 12/10/15 Status: Ordered potassium chloride 20 mEq oral tablet, extended release See Instructions, TAKE 1 TABLET BY MOUTH TWICE DAILY, # 60 tabs, eRx: [facility] 24597, TAKE 1 TABLET BY MOUTH TWICE DAILY [...] needed, # 15 tabs, 6 Refill(s), Pharmacy: [facility] 64193, 1 tabs oral twice weekly as needed [...]
--- OUTSIDE RECORDS SUMMARY | 2017-01-19 07:43 | XMS REPORT | Referral Summary ---
Author Author [facility] Organization [facility] Address Unknown Phone Unavailable Care Team Providers Care Machine Stone Polisher Apprentice Name Role Phone Fatoumata Negron Primary Care Physician [phone] Encounter VC Date(s): 05/10/15 - 05/10/15 [facility], [facility] [address] [place], [place] [address] Discharge Disposition: 01-Home or Self Care Attending Physician: Marco Antonio Kendall MD Admitting Physician: Bhumika Torrez APRN Vital Signs No data available for [...] day), # 90 tabs, 3 Refill(s), Pharmacy: [facility] [id number], 1 tabs Oral Bedtime (once a day) Start Date: 07/19/15 Status: Ordered Centrum Silver 1 tabs, Oral, Daily, 0 Refill(s) Start Date: 04/09/14 Status: Ordered Citracal + D 250MG-200UNITS - 2 CAPS, Oral, Daily, 0 Refill(s) Start Date: 04/09/14 Status: Ordered Communication Patient transferred from [facility], see MAR, 0 Refill(s) Start Date: 11/15/15 Status: Ordered digoxin 125 mcg (0.125 mg) oral tablet 125 mcg 1 tabs, Oral, Daily, # 90 tabs, 3 Refill(s), Pharmacy: [facility] 06415, 1 tabs Oral Daily Start Date: 07/06/15 Status: Ordered Diltiazem Hydrochloride ER 120 mg/24 hours oral capsule, extended release 120 mg 1 caps, Oral, Daily, # 30 caps, 3 Refill(s), Pharmacy: [facility] 39427, 1 caps Oral Daily Start Date: 08/17/15 [...] 04/22/12 Colonoscopic polypectomy3 10/14/01 Biopsy of breast 1979 Appendectomy Colectomy FS - Flexible sigmoidoscopy4 H/O [...]
--- OUTSIDE RECORDS SUMMARY | 2017-01-19 07:44 | XMS REPORT | Continuity of Care Document ---
Author Author [facility] Organization [facility] Address Unknown Phone Unavailable Allergies Active Description Code Type Severity Reaction Onset Reported/Identified Relationship to Patient Clinical Status Yes No Known Drug Allergies Drug Allergy N/A N/A 03/23/2014 Medications Problems Date Dx Coded Attending Type Code Diagnosis Diagnosed By 03/23/2014 Marco Antonio Kendall MD Final 426.3 LEFT BB BLOCK NEC 03/23/2014 Marco Antonio Kendall MD Final 427.31 ATRIAL FIBRILLATION 03/23/2014 Marco Antonio Kendall MD Final 427.81 SINOATRIAL NODE DYSFUNCT Procedures Results Encounters ACCT No. Visit Date/Time Discharge Status Pt. Type Provider Facility Loc./Unit Complaint [id number] 01/27/2014 14:43:00 01/27/2014 23 :59:59 CLS Outpatient [id number] 01/01/2014 10:47:00 01/01/2014 23 :59:59 CLS Outpatient
--- OUTSIDE RECORDS SUMMARY | 2017-01-19 07:44 | XMS REPORT | Referral Summary ---
Author Author [facility] Organization [facility] Address Unknown Phone Unavailable Care Team Providers Care Mail Weigher Name Role Phone Fatoumata Negron Primary Care Physician [phone] Encounter VC Date(s): 09/19/16 - 09/19/16 [facility], [facility] [address] [place], [place] [address] Discharge Diagnosis: Chronic atrial fibrillation Discharge Diagnosis: Presence of permanent cardiac pacemaker Discharge Disposition: 01-Home or Self Care Attending Physician: Marco Antonio Kendall MD Admitting Physician: Marco Antonio Kendall MD Vital Signs Most recent to 1 oldest [Reference Range]: Peripheral Pulse 80 bpm Rate [60-100 bpm] (09/19/16 10:49 AM) Blood Pressure 134/70 mmHg [90-140/60-90 mmHg] (09/19/16 10:49 AM) Problem List Condition Effective Dates Status [...] Active hypotension(Confirme d) Osteoporosis(Confirm Resolved ed) Pacemaker(Confirmed) 5/19/14 Resolved 8 Parkinsons(Confirmed Active ) Parkinsonism(Confirm Active [...] Instructions, TAKE 1 TABLET BY MOUTH EVERY NIGHT AT BEDTIME, # 90 tabs, eRx : [email or web address] 91549, TAKE 1 TABLET BY MOUTH EVERY NIGHT AT BEDTIME Start Date: 07/11/16 Status: Ordered carbidopa-levodopa 25 mg-100 mg oral tablet See Instructions, take 1.5 tabs at 7am and 3pm then 1 tab at 9pm., # 360 tabs, 0 Refill(s), Pharmacy: [email or web address] [id number] Start Date: 06/26/16 Status: Ordered Cartia XT 240 mg/24 hours oral capsule, extended release See Instructions, TAKE 1 CAPSULE BY MOUTH DAILY, # 30 caps, 4 Refill(s), eRx: [email or web address] 68318, TAKE 1 CAPSULE BY MOUTH DAILY Start Date: 06/01/16 Status: Ordered Centrum Silver 1 tabs, Oral, Daily, 0 Refill(s) Start Date: 04/09/14 Status: Ordered digoxin 125 mcg (0.125 mg) oral tablet See Instructions, TAKE 1 TABLET BY MOUTH EVERY DAY, # 90 tabs, 8 Refill(s), eRx : [email or web address] 67224, TAKE 1 TABLET BY MOUTH EVERY DAY Start Date: 07/24/16 Status: Ordered furosemide 20 mg oral tablet 20 mg 1 tabs, Oral, Daily, # 30 tabs, 0 Refill(s) Start Date: 06/29/16 Status: Ordered losartan 100 mg oral tablet 100 mg 1 tabs, Oral, Daily, home dose, # 90 tabs, 3 Refill(s), Pharmacy: [email or web address] 16367, 1 tabs Oral Daily,Instr:home dose Start Date: 11/25/15 Status: Ordered MiraLax oral powder for reconstitution 17 g, Oral, Daily, as needed, 0 Refill(s) Start Date: 12/10/15 Status: Ordered potassium chloride 20 mEq oral tablet, extended release See Instructions, TAKE 1 TABLET BY MOUTH TWICE DAILY, # 60 tabs, 8 Refill(s), eRx: [email or web address] 96145, TAKE 1 TABLET BY MOUTH TWICE DAILY [...] provider., # 30 tabs, 3 Refill(s), Pharmacy: [email or web address] 39360, Take half a tablet Sun/Tues/Thurs/Sat or as instructed by your warfarin provider. Start Date: 08/03/16 Status: Ordered Zaroxolyn 2.5 mg oral tablet See Instructions, 1 tabs oral twice weekly as needed, # 15 tabs, 6 Refill(s), Pharmacy: [email or web address] 71199, 1 tabs oral twice weekly as needed [...]
--- OUTSIDE RECORDS SUMMARY | 2017-01-19 07:44 | XMS REPORT | Referral Summary ---
Author Author [facility], [facility] Organization [facility] Address Unknown Phone Unavailable Care Team Providers Care Top Steep Tender Name Role Phone Fatoumata Negron Primary Care Physician [phone] Encounter VC Date(s): 04/22/15 - 04/22/15 [facility] [place] [address] Discharge Diagnosis: AF (paroxysmal atrial fibrillation) Discharge Disposition: 01-Home or Self Care [...] # 90 tabs, 3 Refill(s), eRx : [facility] 65404, TAKE 1 TABLET BY MOUTH EVERY DAY Start Date: 04/26/15 Status: Ordered Aspir 81 81 mg, Oral, Daily, 1 tab, 0 Refill(s) Start Date: 05/26/14 Status: Ordered atorvastatin 10 mg oral tablet 10 mg 1 tabs, Oral, Bedtime (once a day), # 90 tabs, 3 Refill(s), [facility]: [facility] 84[facility], 1 tabs Oral Bedtime (once a day) Start Date: 07/19/15 Status: Ordered carbidopa-levodopa 25 mg-100 mg oral tablet See Instructions, 1 TABS ORAL TID,INSTR:TAKE AT 7AM, 2PM, 9PM, # 90 tabs, 5 Refill(s), eRx: [email or web address] 13762, 1 TABS ORAL TID,INSTR:TAKE AT 7AM, 2PM, 9PM Start Date: 05/18/15 Status: Ordered Centrum Silver 0.4mg-300mcgmcg - 1 tab, Daily, 0 Refill(s) Start Date: 04/09/14 Status: Ordered Citracal + D 250MG-200UNITS - 2 CAPS, Oral, Daily, 0 Refill(s) Start Date: 04/09/14 Status: Ordered digoxin 125 mcg (0.125 mg) oral tablet 125 mcg 1 tabs, Oral, Daily, # 90 tabs, 3 Refill(s), Pharmacy: [facility] 59607, 1 tabs Oral Daily Start Date: 07/06/15 Status: Ordered Diltiazem Hydrochloride ER 120 mg/24 hours oral capsule, extended release 120 mg 1 caps, Oral, Daily, # 30 caps, 3 Refill(s), Pharmacy: [email or web address] 91634, 1 caps Oral Daily Start Date: 08/17/15 Status: Ordered losartan 50 mg oral tablet 50 mg 1 tabs, Oral, Daily, # 90 tabs, 3 Refill(s), Pharmacy: [email or web address] 41094, 1 tabs Oral Daily Start Date: 07/06/15 Status: Ordered potassium chloride 20 mEq oral tablet, extended release See Instructions, 1 TABS ORAL DAILY, # 30 tabs, 3 Refill(s), eRx: [email or web address] 69435, 1 TABS ORAL DAILY Start Date: 08/16/15 Status: Ordered Reclast 5 mg/100 mL intravenous solution 5 mg 100 mL, IV, qYear, yearly, # 100 mL, 0 Refill(s), other reason (Rx) Start Date: 05/14/15 Stop Date: 05/14/16 Status: Ordered warfarin 1 mg oral tablet See Instructions, TAKE 1 TABLET BY MOUTH EVERY DAY, # 30 tabs, eRx: [facility] 27698, TAKE 1 TABLET BY MOUTH EVERY DAY [...]
--- OUTSIDE RECORDS SUMMARY | 2017-01-19 07:44 | XMS REPORT | Referral Summary ---
Author Author [facility] Organization [facility] Address Unknown Phone Unavailable Care Team Providers Care Financial Examiner Name Role Phone Fatoumata Negron Primary Care Physician [phone] Encounter VC Date(s): 03/17/16 - 03/17/16 [facility] [address] [place], [place] [address] Discharge Disposition: 01-Home or Self Care [...] day), # 90 tabs, 3 Refill(s), Pharmacy: [facility] 24327, 1 tabs Oral Bedtime (once a day) Start Date: 07/19/15 Status: Ordered carbidopa-levodopa 25 mg-100 mg oral tablet See Instructions, 1 TABS ORAL TID, # 90 tabs, 5 Refill(s), eRx: [facility] [id number], 1 TABS ORAL TID Start Date: 12/06/15 Status: Ordered Centrum Silver 1 tabs, Oral, Daily, 0 Refill(s) Start Date: 04/09/14 Status: Ordered Citracal + D 250MG-200UNITS - 2 CAPS, Oral, Daily, 0 Refill(s) Start Date: 04/09/14 Status: Ordered digoxin 125 mcg (0.125 mg) oral tablet 125 mcg 1 tabs, Oral, Daily, # 90 tabs, 3 Refill(s), Pharmacy: [facility] 58428, 1 tabs Oral Daily Start Date: 07/06/15 Status: Ordered Diltiazem Hydrochloride ER 240 mg/24 hours oral capsule, extended release See Instructions, 1 CAPS ORAL DAILY, # 30 caps, 3 Refill(s), eRx: [facility] [id number], 1 CAPS ORAL DAILY Start Date: 02/03/16 Status: Ordered furosemide 40 mg oral tablet See Instructions, TAKE 1 TABLET BY MOUTH EVERY DAY, # 30 tabs, eRx: [facility] [id number], TAKE 1 TABLET BY MOUTH EVERY DAY Start Date: 03/07/16 Status: Ordered losartan 100 mg oral tablet 100 mg 1 tabs, Oral, Daily, home dose, # 90 tabs, 3 Refill(s), Pharmacy: [facility] 83324, 1 tabs Oral Daily,Instr:home dose Start Date: 1/21/16 Status: Ordered MiraLax oral powder for reconstitution 17 g, Oral, Daily, as needed, 0 Refill(s) Start Date: 12/10/15 Status: Ordered potassium chloride 20 mEq oral tablet, extended release See Instructions, TAKE 1 TABLET BY MOUTH TWICE DAILY, # 60 tabs, eRx: [facility] [id number], TAKE 1 TABLET BY MOUTH TWICE DAILY [...] needed, # 15 tabs, 6 Refill(s), Pharmacy: [facility] 49249, 1 tabs oral twice weekly as needed [...]
--- OUTSIDE RECORDS SUMMARY | 2017-01-19 07:44 | XMS REPORT | Referral Summary ---
Author Author [facility], [facility] Organization [facility] Address Unknown Phone Unavailable Care Team Providers Care Government Employee Name Role Phone Fatoumata Negron Primary Care Physician [phone] Encounter Date(s): 03/17/16 - 03/17/16 [facility] [address] [place], [place] [address] Discharge Diagnosis: Hemorrhagic pericardial effusion Discharge Diagnosis: Chronic atrial fibrillation Discharge Diagnosis: Presence of permanent cardiac pacemaker Discharge Disposition: -Home or Self Care Attending Physician: Marco Antonio Kendall MD Admitting Physician: Marco Antonio Kendall MD Referring Physician: Yolie Negron MD Vital Signs Most recent to 1 oldest [Reference Range]: Peripheral Pulse 76 bpm Rate [60-100 bpm] (03/17/16 11:18 AM) Blood Pressure 124/70 mmHg [90-140/60-90 mmHg] (03/17/16 11:18 AM) Problem List Condition Effective Dates Status [...] Osteoporosis(Confirm Resolved ed) Pacemaker(Confirmed) 5/19/14 Resolved 8 Parkinsonism(Confirm Active ed) Sensory peripheral [...] day), # 90 tabs, 3 Refill(s), Pharmacy: [facility] [id number], 1 tabs Oral Bedtime (once a day) Start Date: 07/19/15 Status: Ordered carbidopa-levodopa 25 mg-100 mg oral tablet See Instructions, 1 TABS ORAL TID, # 90 tabs, 5 Refill(s), eRx: [facility] [id number], 1 TABS ORAL TID Start Date: 12/06/15 Status: Ordered Centrum Silver 1 tabs, Oral, Daily, 0 Refill(s) Start Date: 04/09/14 Status: Ordered Citracal + D 250MG-200UNITS - 2 CAPS, Oral, Daily, 0 Refill(s) Start Date: 04/09/14 Status: Ordered digoxin 125 mcg (0.125 mg) oral tablet 125 mcg 1 tabs, Oral, Daily, # 90 tabs, 3 Refill(s), Pharmacy: [facility] [id number], 1 tabs Oral Daily Start Date: 07/06/15 Status: Ordered Diltiazem Hydrochloride ER 240 mg/24 hours oral capsule, extended release See Instructions, 1 CAPS ORAL DAILY, # 30 caps, 3 Refill(s), eRx: [facility] [id number], 1 CAPS ORAL DAILY Start Date: 02/03/16 Status: Ordered furosemide 40 mg oral tablet See Instructions, TAKE 1 TABLET BY MOUTH EVERY DAY, # 30 tabs, eRx: [facility] [id number], TAKE 1 TABLET BY MOUTH EVERY DAY Start Date: 03/07/16 Status: Ordered losartan 100 mg oral tablet 100 mg 1 tabs, Oral, Daily, home dose, # 90 tabs, 3 Refill(s), [facility], 1 tabs Oral Daily,Instr:home dose Start Date: 11/25/15 Status: Ordered MiraLax oral powder for reconstitution 17 g, Oral, Daily, as needed, 0 Refill(s) Start Date: 12/10/15 Status: Ordered potassium chloride 20 mEq oral tablet, extended release See Instructions, TAKE 1 TABLET BY MOUTH TWICE DAILY, # 60 tabs, eRx: [facility] [id number], TAKE 1 TABLET BY MOUTH TWICE DAILY [...] needed, # 15 tabs, 6 Refill(s), Pharmacy: [facility] [id number], 1 tabs oral twice weekly as needed [...]
--- OUTSIDE RECORDS SUMMARY | 2017-01-19 07:44 | XMS REPORT | Referral Summary ---
Author Author [facility] [place], [facility] Organization [facility] Address Unknown Phone Unavailable Care Team Providers Care Bomb Squad Commander Name Role Phone Fatoumata Negron Primary Care Physician [phone] Encounter VC Date(s): 04/27/15 - 04/27/15 [facility] [place], [address] [employer] [address] Discharge Disposition: 01-Home or Self [...] # 90 tabs, 3 Refill(s), eRx : [facility] [id number], TAKE 1 TABLET BY MOUTH EVERY DAY Start Date: 04/26/15 Status: Ordered Aspir 81 81 mg, Oral, Daily, 1 tab, 0 Refill(s) Start Date: 05/26/14 Status: Ordered atorvastatin 10 mg oral tablet 10 mg 1 tabs, Oral, Bedtime (once a day), # 90 tabs, 3 Refill(s), Pharmacy: [facility] [id number], 1 tabs Oral Bedtime (once a day) Start Date: 07/19/15 Status: Ordered carbidopa-levodopa 25 mg-100 mg oral tablet See Instructions, 1 TABS ORAL TID,INSTR:TAKE AT 7AM, 2PM, 9PM, # 90 tabs, 5 Refill(s), [id number], 1 TABS ORAL TID,INSTR:TAKE AT 7AM, 2PM, 9PM Start Date: 05/18/15 Status: Ordered Centrum Silver 0.4mg-300mcgmcg - 1 tab, Daily, 0 Refill(s) Start Date: 04/09/14 Status: Ordered Citracal + D 250MG-200UNITS - 2 CAPS, Oral, Daily, 0 Refill(s) Start Date: 04/09/14 Status: Ordered digoxin 125 mcg (0.125 mg) oral tablet 125 mcg 1 tabs, Oral, Daily, # 90 tabs, 3 Refill(s), Pharmacy: [facility] [id number], 1 tabs Oral Daily Start Date: 07/06/15 Status: Ordered Diltiazem Hydrochloride ER 120 mg/24 hours oral capsule, extended release 120 mg 1 caps, Oral, Daily, # 30 caps, 3 Refill(s), [id number], 1 caps Oral Daily Start Date: 08/17/15 Status: Ordered losartan 50 mg oral tablet 50 mg 1 tabs, Oral, Daily, # 90 tabs, 3 Refill(s), [facility] 05[facility], 1 tabs Oral Daily Start Date: 07/06/15 Status: Ordered potassium chloride 20 mEq oral tablet, extended release See Instructions, 1 TABS ORAL DAILY, # 30 tabs, 3 Refill(s), [facility] [id number], 1 TABS ORAL DAILY Start Date: 08/16/15 Status: Ordered Reclast 5 mg/100 mL intravenous solution 5 mg 100 mL, IV, qYear, yearly, # 100 mL, 0 Refill(s), other reason (Rx) Start Date: 05/14/15 Stop Date: 05/14/16 Status: Ordered warfarin 1 mg oral tablet See Instructions, TAKE 1 TABLET BY MOUTH EVERY DAY, # 30 tabs, eRx: [facility] [id number], TAKE 1 TABLET BY MOUTH EVERY DAY [...]
--- OUTSIDE RECORDS SUMMARY | 2017-01-19 07:44 | XMS REPORT | Referral Summary ---
Author Organization Unknown Address Unknown Phone Unavailable Care Team Providers Care Electrolytic De Scaler Name Role Phone Fatoumata Negron Primary Care Physician [phone] Encounter VC Date(s): 11/25/14 - 11/25/14 [facility], [place], Cardiology [address], [place] [address] Discharge Diagnosis: Presence of permanent cardiac pacemaker Discharge Diagnosis: Sinus node dysfunction Discharge Diagnosis: AF (atrial fibrillation) Discharge Disposition: Home or Self Care Attending Physician: Marco Antonio Kendall MD Admitting Physician: Marco Antonio Kendall MD Referring Physician: Yolie Negron MD Vital Signs Most recent to 1 oldest [Reference Range]: Peripheral Pulse 72 bpm Rate [60-100 bpm] (11/25/14 9:50 AM) Blood Pressure 142/68 mmHg [90-140/60-90 mmHg] *HI* (11/25/14 9:50 AM) Problem List Condition Effective Dates Status [...] EVERY DAY, # 90 unknown unit, eRx: [facility] [id number], TAKE 1 TABLET (10MG) BY ORAL ROUTE [...] DAILY, # 30 tabs, 3 Refill(s), eRx: [facility] [id number], 1 TABS ORAL DAILY Special Instructions: 1 TABS ORAL DAILY Start Date: 07/30/14 Status: Ordered digoxin 125 mcg (0.125 mg) oral tablet 1 tabs, Oral, Daily, 0 Refill(s) Start Date: 04/09/14 Status: Ordered flecainide 50 mg oral tablet See Instructions, 1.5 TABS ORAL Q12HR, # 270 tabs, 2 Refill(s), eRx: [facility] [id number], 1.5 TABS ORAL Q12HR Special Instructions: 1.5 TABS ORAL Q12HR Start Date: 09/23/14 Status: Ordered losartan 50 mg oral tablet See Instructions, TAKE 1 TABLET BY MOUTH EVERY DAY., # 90 unknown unit, 2 Refill (s), eRx: [facility] [id number], TAKE 1 TABLET BY MOUTH EVERY DAY. [...] # 90 unknown unit, 3 Refill(s), eRx: [facility] [id number], TAKE 1 TABLET BY MOUTH DAILY OR [...]
--- OUTSIDE RECORDS SUMMARY | 2017-01-19 07:44 | XMS REPORT | Referral Summary ---
Author Organization Unknown Address Unknown Phone Unavailable Care Team Providers Care Bartender Server Name Role Phone Fatoumata Negrno Primary Care Physician [phone] Encounter VC Date(s): 02/24/15 - 02/24/15 [facility], [facility], Neurology [address] [facility] [address] [place], [place] [address] Discharge Diagnosis: Decreased vibratory sense Discharge Diagnosis: Tremor Discharge Diagnosis: ATRIAL FIBRILLATION Discharge Diagnosis: Carotid artery disease Discharge Disposition: Home or Self Care Attending Physician: Aris Faith MD Admitting Physician: Aris Faith MD Vital Signs Most recent to 1 oldest [Reference Range]: Peripheral Pulse 62 bpm Rate [60-100 bpm] (02/24/15 8:30 AM) Blood Pressure 120/82 mmHg [90-140/60-90 mmHg] (02/24/15 8:30 AM) Problem List Condition Effective Dates Status Health Status Informant Gait Active disturbance(Confirme d) AF (atrial Active fibrillation)(Confir med) Atrial Resolved fibrillation(Confirm ed) Presence of Active permanent cardiac pacemaker(Confirmed) Carotid artery RT Resolved neck, LT leg(Confirmed)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)2 Decreased vibratory Active [...] atorvastatin 10 mg oral tablet See Instructions, 1 TABS ORAL BEDTIME (ONCE A DAY),INSTR:PT IS DUE FOR LAB WORK , # 30 tabs, 1 Refill(s), eRx: [email or web address] [id number], 1 TABS ORAL BEDTIME ( ONCE A DAY),INSTR:PT IS DUE FOR LAB WORK Special Instructions: 1 TABS ORAL BEDTIME (ONCE A DAY),INSTR:PT IS DUE FOR LAB WORK Start Date: 02/11/15 Status: Ordered carbidopa-levodopa 25 mg-100 mg oral tablet 1 tabs, Oral, TID, take at 7am, 2pm, 9pm, # 90 tabs, 2 Refill(s), Pharmacy: [email or web address] [id number] Special Instructions: take at 7am, 2pm, 9pm Start Date: 02/24/15 Status: Ordered Centrum Silver 0.4mg-300mcgmcg - 1 tab, Daily, 0 Refill(s) Start Date: 04/09/14 Status: Ordered Citracal + D 250MG-200UNITS - 2 CAPS, Oral, Daily, 0 Refill(s) Start Date: 04/09/14 Status: Ordered Coumadin 4 mg oral tablet See Instructions, 1 TABS ORAL DAILY, # 30 tabs, 3 Refill(s), eRx: [email or web address] [id number], 1 TABS ORAL DAILY Special Instructions: 1 TABS ORAL DAILY Start Date: 07/30/14 Status: Ordered digoxin 125 mcg (0.125 mg) oral tablet See Instructions, TAKE 1 TABLET BY MOUTH EVERY DAY., # 90 unknown unit, eRx: [email or web address] [id number], TAKE 1 TABLET BY MOUTH EVERY DAY. Special Instructions: TAKE 1 TABLET BY MOUTH EVERY DAY. Start Date: 02/04/15 Status: Ordered flecainide 50 mg oral tablet See Instructions, 1.5 TABS ORAL Q12HR, # 270 tabs, 2 Refill(s), eRx: [email or web address] [id number], 1.5 TABS ORAL Q12HR Special Instructions: 1.5 TABS ORAL Q12HR Start Date: 09/23/14 Status: Ordered losartan 50 mg oral tablet See Instructions, TAKE 1 TABLET BY MOUTH EVERY DAY., # 90 unknown unit, 2 Refill (s), eRx: [facility] [id number], TAKE 1 TABLET BY MOUTH EVERY DAY. Special Instructions: TAKE 1 TABLET BY MOUTH EVERY DAY. Start Date: 11/03/14 Status: Ordered Norvasc 5 mg oral tablet 1 tabs, Oral, Daily, 0 Refill(s) Start Date: 04/09/14 Status: Ordered potassium chloride 20 mEq oral tablet, extended release 1 tabs, Oral, Daily, # 30 tabs, 0 Refill(s), Pharmacy: [facility] [id number], PT DUE FOR LAB WORK, 1 tabs Oral Daily Start Date: 02/19/15 Status: Ordered Reclast 5 mg/100 mL intravenous solution 100 mL, IV, qYear, yearly, 0 Refill(s) Special Instructions: yearly Start Date: 04/09/14 Status: Ordered warfarin 3 mg oral tablet See Instructions, TAKE 1 TABLET BY MOUTH DAILY OR DIRECTED BY PHYSICIAN., # 90 unknown unit, 3 Refill(s), eRx: [facility] [id number], TAKE 1 TABLET BY MOUTH DAILY OR DIRECTED BY PHYSICIAN. Special Instructions: TAKE 1 TABLET BY MOUTH DAILY OR DIRECTED BY PHYSICIAN. Start Date: 11/23/14 Status: Ordered Results Coagulation Most recent to 1 oldest [Reference Range]: INR [0.9-1.2] 1.8 *HI* (02/24/15 9:52 AM) Chemistry Most recent to 1 oldest [Reference Range]: Vitamin B12 Lvl 1687 pg/mL [213-816 pg/mL] *HI* (02/24/15 9:53 AM) Immunizations Vaccine Date Refusal Reason hepatitis A [...]
--- OUTSIDE RECORDS SUMMARY | 2017-01-19 07:44 | XMS REPORT | Referral Summary ---
Author Author [facility], [facility] Organization [facility] Address Unknown Phone Unavailable Care Team Providers Care Utility Teller Name Role Phone Fatoumata Negron Primary Care Physician [phone] Encounter VC Date(s): 04/22/15 - 04/22/15 [facility] [address] [place], [place] [address] Discharge Disposition: 01-Home or Self Care [...] # 90 tabs, 3 Refill(s), eRx : [facility] [id number], TAKE 1 TABLET BY MOUTH EVERY DAY Start Date: 04/26/15 Status: Ordered Aspir 81 81 mg, Oral, Daily, 1 tab, 0 Refill(s) Start Date: 05/26/14 Status: Ordered atorvastatin 10 mg oral tablet 10 mg 1 tabs, Oral, Bedtime (once a day), # 90 tabs, 3 Refill(s), [facility], 1 tabs Oral Bedtime (once a day) Start Date: 07/19/15 Status: Ordered carbidopa-levodopa 25 mg-100 mg oral tablet See Instructions, 1 TABS ORAL TID,INSTR:TAKE AT 7AM, 2PM, 9PM, # 90 tabs, 5 Refill(s), eRx: [facility] [id number], 1 TABS ORAL TID,INSTR:TAKE AT 7AM, 2PM, 9PM Start Date: 05/18/15 Status: Ordered Centrum Silver 0.4mg-300mcgmcg - 1 tab, Daily, 0 Refill(s) Start Date: 04/09/14 Status: Ordered Citracal + D 250MG-200UNITS - 2 CAPS, Oral, Daily, 0 Refill(s) Start Date: 04/09/14 Status: Ordered digoxin 125 mcg (0.125 mg) oral tablet 125 mcg 1 tabs, Oral, Daily, # 90 tabs, 3 Refill(s), [facility], 1 tabs Oral Daily Start Date: 07/06/15 Status: Ordered Diltiazem Hydrochloride ER 120 mg/24 hours oral capsule, extended release 120 mg 1 caps, Oral, Daily, # 30 caps, 3 Refill(s), Pharmacy: [facility] 37585, 1 caps Oral Daily Start Date: 08/17/15 Status: Ordered losartan 50 mg oral tablet 50 mg 1 tabs, Oral, Daily, # 90 tabs, 3 Refill(s), Pharmacy: [facility] 86164, 1 tabs Oral Daily Start Date: 07/06/15 Status: Ordered potassium chloride 20 mEq oral tablet, extended release See Instructions, 1 TABS ORAL DAILY, # 30 tabs, 3 Refill(s), eRx: [facility] [id number], 1 TABS ORAL DAILY Start Date: 08/16/15 Status: Ordered Reclast 5 mg/100 mL intravenous solution 5 mg 100 mL, IV, qYear, yearly, # 100 mL, 0 Refill(s), other reason (Rx) Start Date: 05/14/15 Stop Date: 05/14/16 Status: Ordered warfarin 1 mg oral tablet See Instructions, TAKE 1 TABLET BY MOUTH EVERY DAY, # 30 tabs, eRx: [facility] 55213, TAKE 1 TABLET BY MOUTH EVERY DAY [...]
--- OUTSIDE RECORDS SUMMARY | 2017-01-19 07:44 | XMS REPORT | Referral Summary ---
Author Author [facility], [facility] Organization [facility] Address Unknown Phone Unavailable Care Team Providers Care Filler Shredder Name Role Phone Fatoumata Negron Primary Care Physician [phone] Encounter VC Date(s): 05/24/15 - 05/24/15 [facility] [address] [place], [place] [address] Discharge Disposition: 01-Home or Self Care [...] day), # 90 tabs, 3 Refill(s), Pharmacy: [facility] [id number], 1 tabs Oral Bedtime (once a day) [...] Daily, # 90 tabs, 3 Refill(s), Pharmacy: [facility] [id number], 1 tabs Oral Daily Start Date: 07/06/15 [...] dose, # 90 tabs, 3 Refill(s), Pharmacy: [facility] 75043, 1 tabs Oral Daily,Instr:home dose Start Date: 11/25/15 Status: Ordered Reclast 5 mg/100 mL intravenous [...]
--- OUTSIDE RECORDS SUMMARY | 2017-01-19 07:44 | XMS REPORT | Referral Summary ---
Author Organization Unknown Address Unknown Phone Unavailable Care Team Providers Care Aluminum Pool Installer Name Role Phone Fatoumata Negron Primary Care Physician [phone] Encounter VC Date(s): 01/09/15 - 01/09/15 [facility], [address] [place] [address] Discharge Diagnosis: Cellulitis Discharge Diagnosis: Anticoagulated Discharge Disposition: Home or Self Care Attending Physician: Deandre Ann MD Admitting Physician: Deandre Ann MD Referring Physician: Yolie Negron MD Vital Signs Most recent to 1 oldest [Reference Range]: Temperature Tympanic 36.5 degC [36.6-38.1 degC] *LOW* (01/09/15 10:39 AM) Peripheral Pulse 77 bpm Rate [60-100 bpm] (01/09/15 10:39 AM) Blood Pressure 112/68 mmHg [90-140/60-90 mmHg] (01/09/15 10:39 AM) Most recent to 1 oldest [Reference Range]: SpO2 98 % (01/09/15 10:39 AM) Problem List Condition Effective Dates Status [...] EVERY DAY, # 90 unknown unit, eRx: [facility] [id number], TAKE 1 TABLET (10MG) BY ORAL ROUTE EVERY DAY Special Instructions: TAKE 1 TABLET (10MG) BY ORAL ROUTE EVERY DAY Start Date: 10/26/14 Status: Ordered carbidopa-levodopa 10 mg-100 mg oral tablet See Instructions, TAKE 1 TABLET BY MOUTH THREE TIMES DAILY, # 270 tabs, 0 Refill (s), Pharmacy: [facility] Special Instructions: TAKE 1 TABLET BY MOUTH THREE TIMES DAILY Start Date: 12/28/14 Status: Ordered Centrum Silver 0.4mg-300mcgmcg - 1 tab, Daily, 0 Refill(s) Start Date: 04/09/14 Status: Ordered cephalexin 250 mg oral tablet 1 tabs, Oral, QID, X 7 days, # 28 tabs, 0 Refill(s), Pharmacy: [facility] [id number], 1 tabs Oral QID,x7 days Start Date: 01/09/15 Stop Date: 01/16/15 Status: Ordered Citracal + D 250MG-200UNITS - 2 CAPS, Oral, Daily, 0 Refill(s) Start Date: 04/09/14 Status: Ordered Coumadin 4 mg oral tablet See Instructions, 1 TABS ORAL DAILY, # 30 tabs, 3 Refill(s), eRx: [facility] [id number], 1 TABS ORAL DAILY Special Instructions: 1 TABS ORAL DAILY Start Date: 07/30/14 Status: Ordered digoxin 125 mcg (0.125 mg) oral tablet 1 tabs, Oral, Daily, 0 Refill(s) Start Date: 04/09/14 Status: Ordered flecainide 50 mg oral tablet See Instructions, 1.5 TABS ORAL Q12HR, # 270 tabs, 2 Refill(s), eRx: [facility] [id number], 1.5 TABS ORAL Q12HR Special Instructions: 1.5 TABS ORAL Q12HR Start Date: 09/23/14 Status: Ordered losartan 50 mg oral tablet See Instructions, TAKE 1 TABLET BY MOUTH EVERY DAY., # 90 unknown unit, 2 Refill (s), eRx: [facility] [id number], TAKE 1 TABLET BY MOUTH EVERY DAY. Special Instructions: TAKE 1 TABLET BY MOUTH EVERY DAY. Start Date: 11/03/14 Status: Ordered [place] 5 mg-325 mg oral tablet 1 tabs, [...] # 90 unknown unit, 3 Refill(s), eRx: [facility] [id number], TAKE 1 TABLET BY MOUTH DAILY OR [...] Extracted from: Title: Ambulatory Patient Education Author: Deandre Ann MD Date: 01/09/15 Family Medicine Abscess An abscess (boil or furuncle ) is an infected area on or under the skin. This area is filled with yellowish-white fluid (pus ) and other material (debris ). HOME CARE Only take medicines as told by your doctor. If you were given antibiotic medicine, take it as directed. Finish the medicine even if you start to feel better. If gauze is used, follow your doctor's directions for changing the gauze. To avoid spreading the infection: Keep your abscess covered with a bandage. Wash your hands well. Do not share personal care items, towels, or whirlpools with others. Avoid skin contact with others. Keep your skin and clothes clean around the abscess. Keep all doctor visits as told. GET HELP RIGHT AWAY IF: You have more pain, puffiness (swelling ), or redness in the wound site. You have more fluid or blood coming from the wound site. You have muscle aches, chills, or you feel sick. You have a fever. MAKE SURE YOU: Understand these instructions. Will watch your condition. Will get help right away if you are not doing well or get worse. Document Released: 04/09/2009 Document Revised: 04/22/2013 Document Reviewed: [facility] Patient Information 2014 [employer]. Anticoagulation, Generic Anticoagulants are medications used to prevent clots from developing in your veins. These medications are also known as blood thinners. If blood clots are untreated, they could travel to your lungs. This is called a pulmonary embolus. A blood clot in your lungs can be fatal. Caregivers often use anticoagulants to prevent clots following surgery. Anticoagulants are also used along with aspirin when the heart is not getting enough blood. Another anticoagulant called warfarin is started 2 to 3 days after a rapid- acting injectable anticoagulant is started. The rapid-acting anticoagulants are usually continued until warfarin has begun to work. Your caregiver will metal ceiling hanger this length of time by blood tests known as the prothrombin time (PT) and International Normalization Ratio (INR). This means that your blood is at the necessary and best level to prevent clots. RISKS AND COMPLICATIONS If you have received recent epidural anesthesia, spinal anesthesia, or a spinal tap while receiving anticoagulants, you are at risk for developing a blood clot in or around the spine. This condition could result in long-term or permanent paralysis. Because anticoagulants thin your blood, severe bleeding may occur from any tissue or organ. Symptoms of the blood being too thin may include: Bleeding from the nose or gums that does not stop quickly. Unusual bruising or bruising easily. Swelling or pain at an injection site. A cut that does not stop bleeding within 10 minutes. Continual nausea for more than 1 day or vomiting blood. Coughing up blood. Blood in the urine which may appear as pink, red, or brown urine. Blood in bowel movements which may appear as red, dark or black stools. Sudden weakness or numbness of the face, arm, or leg, especially on one side of the body. Sudden confusion. Trouble speaking (aphasia ) or understanding. Sudden trouble seeing in one or both eyes. Sudden trouble walking. Dizziness. Loss of balance or coordination. Severe pain, such as a headache, joint pain, or back pain. Fever. Too little anticoagulation continues to allow the risk for blood clots. HOME CARE INSTRUCTIONS Due to the complications of anticoagulants, it is very important that you take your anticoagulant as directed by your caregiver. Anticoagulants need to be taken exactly as instructed. Be sure you understand all your anticoagulant instructions. Warfarin. Your caregiver will advise you on the length of treatment ( usually 36 months, sometimes lifelong). Take warfarin exactly as directed by your caregiver. It is recommended that you take your warfarin dose at the same time of the day. It is preferred that you take warfarin in the late afternoon. If you have been told to stop taking warfarin, do not resume taking warfarin until directed to do so by your caregiver. Follow your caregiver's instructions if you accidentally take an extra dose or miss a dose of warfarin. It is very important to take warfarin as directed since bleeding or blood clots could result in chronic or permanent injury, pain, or disability. Too much and too little warfarin are both dangerous. Too much warfarin increases the risk of bleeding. Too little warfarin continues to allow the risk for blood clots. While taking warfarin, you will need to have regular blood tests to measure your blood clotting time. These blood tests usually include both the PT and INR tests. The PT and INR results allow your caregiver to adjust your dose of warfarin. The dose can change for many reasons. It is critically important that you take warfarin exactly as prescribed, and that you have your PT and INR levels drawn exactly as directed. Follow up with your laboratory test appointments as directed. It is very important to keep your lab appointments. Not keeping lab appointments could result in a chronic or permanent injury, pain, or disability. Many foods, especially foods high in vitamin K can interfere with warfarin and affect the PT and INR results. Foods high in vitamin K include spinach, kale, broccoli, cabbage, samira and turnip greens, brussels sprouts, peas, cauliflower, seaweed, and parsley as well as beef and pork liver, green tea, and soybean oil. You should eat a consistent amount of foods high in vitamin K. Avoid major changes in your diet, or notify your caregiver before changing your diet. Arrange a visit with a dietitian to answer your questions. Many medicines can interfere with warfarin and affect the PT and INR results. You must tell your caregiver about any and all medicines you take, this includes all vitamins and supplements. Ask your caregiver before taking these. Prescription and sbcx-emr-riluujt medicine consistency is critical to warfarin management. It is important that potential interactions are checked before you start a new medicine. Be especially cautious with aspirin and anti- inflammatory medicines. Ask your caregiver before taking these. Medicines such as antibiotics and acid-reducing medicine can interact with warfarin and can cause an increased warfarin effect. Warfarin can also interfere with the effectiveness of medicines you are taking. Do not take or discontinue any prescribed or rdad-vwo-fcrfrft medicine except on the advice of your caregiver or pharmacist. Some vitamins, supplements, and herbal products interfere with the effectiveness of warfarin. Vitamin E may increase the anticoagulant effects of warfarin. Vitamin K may can cause warfarin to be less effective. Do not take or discontinue any vitamin, supplement, or herbal product except on the advice of your caregiver or pharmacist. Alcohol can change the body's ability to handle warfarin. It is best to avoid alcoholic drinks or consume only very small amounts while taking warfarin. Notify your caregiver if you change your alcohol intake. A sudden increase in alcohol use can increase your risk of bleeding. Chronic alcohol use can cause warfarin to be less effective. If you have a loss of appetite or get the stomach flu (viral gastroenteritis ), talk to your caregiver as soon as possible. A decrease in your normal vitamin K intake can make you more sensitive to your usual dose of warfarin. Some medical conditions may increase your risk for bleeding while you are taking warfarin. A fever, diarrhea lasting more than a day, worsening heart failure, or worsening liver function are some medical conditions that could affect warfarin. Contact your caregiver if you have any of these medical conditions. Warfarin can have side effects, such as excessive bruising or bleeding. You will need to hold pressure over cuts for longer than usual. Be careful not to cut yourself when using sharp objects. Notify your dentist or other caregivers before procedures. Limit physical activities or sports that could result in a fall or cause injury. Avoid contact sports. Wear a medical alert bracelet or carry a medical alert card. SEEK MEDICAL CARE IF: You develop any rashes. You have any worsening of the condition for which you are receiving anticoagulation therapy. SEEK IMMEDIATE MEDICAL CARE IF: Bleeding from the nose or gums does not stop quickly. You have unusual bruising or are bruising easily. Swelling or pain occurs at an injection site. A cut does not stop bleeding within 10 minutes. You have continual nausea for more than 1 day or are vomiting blood. You are coughing up blood. You have blood in the urine. You have dark or black stools. You have sudden weakness or numbness of the face, arm, or leg, especially on one side of the body. You have sudden confusion. You have trouble speaking (aphasia ) or understanding. You have sudden trouble seeing in one or both eyes. You have sudden trouble walking. You have dizziness. You have a loss of balance or coordination. You have severe pain, such as a headache, joint pain, or back pain. You have a serious fall or head injury, even if you are not bleeding. You have an oral temperature above 102 F (38.9 C), not controlled by medicine. ANY OF THESE SYMPTOMS MAY REPRESENT A SERIOUS PROBLEM THAT IS AN EMERGENCY. Do not wait to see if the symptoms will go away. Get medical help right away. Call your local emergency services (911 in [place] DO NOT drive yourself to the hospital. MAKE SURE YOU: Understand these instructions. Will watch your condition. Will get help right away if you are not doing well or get worse. Document Released: 10/22/2006 Document Revised: 07/16/2013 Document Reviewed: [employer] Patient Information 2014 [employer]. No follow up information was provided. Extracted from: Title: Office Visit Note Author: Deandre Ann MD Date: 01/09/15 Assessment/Plan Anticoagulated Ordered: PT Cellulitis Orders: cephalexin, 1 tabs, Oral, QID, X 7 days, # 28 tabs, 0 Refill(s), Pharmacy: [facility] [place] [id number], 1 tabs Oral QID,x7 days I advised her that overall I don't think the wound is doing too badly. Think there may be a mild secondary infection and we will start on antibiotics to cover that concern. Discussed keeping a little hand elevated and she may work her fingers to try to improve venous return a bit. Follow-up for spreading of redness or development of fever or purulent drainage. Because of her Coumadin management and possible interaction with the antibiotic and anticoagulant, will plan a repeat INR in a few days.
--- OUTSIDE RECORDS SUMMARY | 2017-01-19 07:44 | XMS REPORT | Referral Summary ---
Author Author [facility] Organization [facility] Address Unknown Phone Unavailable Care Team Providers Care Automation Lead Name Role Phone Fatoumata Negron Primary Care Physician [phone] Encounter VC Date(s): 05/19/16 - 05/19/16 [facility] [address] [place] [address] [employer] [id number] Discharge Disposition: 01-Home or Self Care Attending Physician: Yolie Negron MD Admitting Physician: Yolie Negron MD Vital Signs Most recent to 1 oldest [Reference Range]: Temperature Tympanic 36.2 degC [36.6-38.1 degC] *LOW* (05/19/16 10:30 AM) Peripheral Pulse 65 bpm Rate [60-100 bpm] (05/19/16 10:30 AM) Blood Pressure 122/70 mmHg [90-140/60-90 mmHg] (05/19/16 10:30 AM) SpO2 98 % (05/19/16 10:30 AM) Problem List Condition Effective Dates Status [...] day), # 90 tabs, 3 Refill(s), Pharmacy: [facility] [id number], 1 tabs Oral Bedtime (once a day) Start Date: 07/19/15 Status: Ordered carbidopa-levodopa 25 mg-100 mg oral tablet See Instructions, 1 TABS ORAL TID, # 90 tabs, 5 Refill(s), eRx: [facility] [id number], 1 TABS ORAL TID Start Date: 12/06/15 Status: Ordered Centrum Silver 1 tabs, Oral, Daily, 0 Refill(s) Start Date: 04/09/14 Status: Ordered Citracal + D 250MG-200UNITS - 2 CAPS, Oral, Daily, 0 Refill(s) Start Date: 04/09/14 Status: Ordered digoxin 125 mcg (0.125 mg) oral tablet 125 mcg 1 tabs, Oral, Daily, # 90 tabs, 3 Refill(s), Pharmacy: [facility] [id number], 1 tabs Oral Daily Start Date: 07/06/15 Status: Ordered Diltiazem Hydrochloride ER 240 mg/24 hours oral capsule, extended release See Instructions, 1 CAPS ORAL DAILY, # 30 caps, 3 Refill(s), eRx: [facility] [id number], 1 CAPS ORAL DAILY Start Date: 02/03/16 Status: Ordered furosemide 40 mg oral tablet See Instructions, TAKE 1 TABLET BY MOUTH EVERY DAY, # 30 tabs, eRx: [facility] [id number], TAKE 1 TABLET BY MOUTH EVERY DAY Start Date: 05/10/16 Status: Ordered losartan 100 mg oral tablet 100 mg 1 tabs, Oral, Daily, home dose, # 90 tabs, 3 Refill(s), Pharmacy: [facility] [id number], 1 tabs Oral Daily,Instr:home dose Start Date: 11/25/15 Status: Ordered MiraLax oral powder for reconstitution 17 g, Oral, Daily, as needed, 0 Refill(s) Start Date: 12/10/15 Status: Ordered potassium chloride 20 mEq oral tablet, extended release See Instructions, TAKE 1 TABLET BY MOUTH TWICE DAILY, # 60 tabs, eRx: [facility] [id number], TAKE 1 TABLET BY MOUTH TWICE DAILY [...] Daily, # 90 tabs, 2 Refill(s), Pharmacy: [facility] [id number], 1 tabs Oral Daily Start Date: 04/13/16 Status: Ordered Zaroxolyn 2.5 mg oral tablet See Instructions, 1 tabs oral twice weekly as needed, # 15 tabs, 6 Refill(s), Pharmacy: [facility] [id number], 1 tabs oral twice weekly as needed [...]
--- OUTSIDE RECORDS SUMMARY | 2017-01-19 07:45 | XMS REPORT | Referral Summary ---
Author Author [facility] Organization [facility] Address Unknown Phone Unavailable Care Team Providers Care Clean Room Assembler Name Role Phone Fatoumata Negron Primary Care Physician [phone] Encounter Date(s): 11/23/16 - 11/23/16 [facility] [address] [place], [place] [address] Discharge Disposition: 01-Home or Self Care Attending Physician: Marco Antonio Kendall MD Admitting Physician: Marco Antonio Kendall MD Referring Physician: Marco Antonio Kendall MD Vital Signs [...] # 90 tabs, 6 Refill(s), eRx : [facility] [id number], TAKE 1 TABLET BY MOUTH AT BEDTIME Start Date: 10/09/16 Status: Ordered carbidopa-levodopa 25 mg-100 mg oral tablet See Instructions, TAKE 1 AND 1/2 TABLETS BY MOUTH AT 7 AM AND AT 3 PM THEN TAKE 1 TABLET BY MOUTH AT 9 PM, # 360 tabs, eRx: [facility] [id number], TAKE 1 AND 1/2 TABLETS BY MOUTH AT 7 AM AND AT 3 PM THEN TAKE 1 TABLET BY MOUTH AT 9 PM Start Date: 09/21/16 Status: Ordered Cartia XT 240 mg/24 hours oral capsule, extended release See Instructions, TAKE 1 CAPSULE BY MOUTH DAILY, # 30 caps, eRx: [facility] [id number], TAKE 1 CAPSULE BY MOUTH DAILY Start Date: 10/31/16 Status: Ordered Cartia XT 240 mg/24 hours oral capsule, extended release See Instructions, TAKE 1 CAPSULE BY MOUTH DAILY, # 30 caps, 4 Refill(s), eRx: [facility] [id number], TAKE 1 CAPSULE BY MOUTH DAILY Start Date: 06/01/16 Status: Ordered Centrum Silver 1 tabs, Oral, Daily, 0 Refill(s) Start Date: 04/09/14 Status: Ordered digoxin 125 mcg (0.125 mg) oral tablet See Instructions, TAKE 1 TABLET BY MOUTH EVERY DAY, # 90 tabs, 8 Refill(s), eRx : [facility] [id number], TAKE 1 TABLET BY MOUTH EVERY DAY Start Date: 07/24/16 Status: Ordered furosemide 20 mg oral tablet 20 mg 1 tabs, Oral, Daily, # 30 tabs, 5 Refill(s), Pharmacy: [facility] 50198, 1 tabs Oral Daily Start Date: 10/27/16 Status: Ordered losartan 100 mg oral tablet See Instructions, TAKE 1 TABLET BY MOUTH DAILY, # 90 tabs, 4 Refill(s), eRx: [facility] [id number] Start Date: 11/23/16 Status: Ordered MiraLax oral powder for reconstitution 17 g, Oral, Daily, as needed, 0 Refill(s) Start Date: 12/10/15 Status: Ordered potassium chloride 20 mEq oral tablet, extended release See Instructions, TAKE 1 TABLET BY MOUTH TWICE DAILY, # 60 tabs, 8 Refill(s), eRx: [facility] [id number], TAKE 1 TABLET BY MOUTH TWICE DAILY [...] provider., # 30 tabs, 3 Refill(s), Pharmacy: [facility] [id number], Take half a tablet Sun/Tues/Thurs/Sat or as instructed by your warfarin provider. Start Date: 08/03/16 Status: Ordered Zaroxolyn 2.5 mg oral tablet See Instructions, 1 tabs oral twice weekly as needed, # 15 tabs, 6 Refill(s), Pharmacy: [facility] [id number], 1 tabs oral twice weekly as needed [...]
--- OUTSIDE RECORDS SUMMARY | 2017-01-19 07:45 | XMS REPORT | Referral Summary ---
Author Author [facility], [facility] Organization [facility] Address Unknown Phone Unavailable Care Team Providers Care Public Area Attendant Name Role Phone Fatoumata Negron Primary Care Physician [phone] Encounter Date(s): 11/30/15 - 11/30/[address] [facility] [address] [facility] [address] [place], [place] [address] Discharge Diagnosis: Gait disturbance Discharge Diagnosis: Meningioma Discharge Diagnosis: Carotid artery disease Discharge Diagnosis: Parkinsonism Discharge Disposition: 01-Home or Self Care Attending Physician: Aris Faith MD Admitting Physician: Aris Faith MD Vital Signs Most recent to 1 oldest [Reference Range]: Peripheral Pulse 80 bpm Rate [60-100 bpm] (11/30/15 3:32 PM) Blood Pressure 120/70 mmHg [90-140/60-90 mmHg] (11/30/15 3:32 PM) Problem List Condition Effective Dates Status [...] day), # 90 tabs, 3 Refill(s), Pharmacy: [facility] [id number], 1 tabs Oral Bedtime (once a day) [...] Daily, # 90 tabs, 3 Refill(s), Pharmacy: [facility] [id number], 1 tabs Oral Daily Start Date: 07/06/15 [...] dose, # 90 tabs, 3 Refill(s), Pharmacy: [id number], 1 tabs Oral Daily,Instr:home dose Start Date: [...] Follow-up Office Author: Aris Faith MD Date: 11/30/15 Note Impression and Plan Diagnosis Meningioma ([id number] D32.9, Discharge, Medical). Carotid artery disease ([id number] I77.9, Discharge, Medical). Gait disturbance ([id number] R26.9, Discharge, Medical). Parkinsonism ([id number] G20, Discharge, Medical). Dx/Order Association Plan: Diagnosis: 1. Parkinsonism Comment: Resting component, likely parkinsonism Action component, likely med-induced, resolved On carbi/levo 25/100 1 tab tid, still with some shaking and hesitant to increase Denies orthostasis/side effects Warned of possible orthostasis, especially also since on BP meds and diuretic Resumed PT for cardiac Diagnosis: 2. Gait disturbance Comment: As above Parkinsonism, +/- component of cardiac issues (?) Dec vib sensation on exam No previous c-spine imaging noted Vit B12 wnl Consider c-spine imaging--but has pacemaker PT - as above Diagnosis: 3. Carotid artery disease Comment: s/p R CEA in past Risk factor control care of PCP Not discussed today Diagnosis: 4. Meningioma Comment: Incidental finding in MRI brain of 6mm R occipital parafalcine meningioma Clinical monitoring, +/- HCT prn--cannot do MRI anymore--asymptomatic Not discussed today .
--- OUTSIDE RECORDS SUMMARY | 2017-01-19 07:45 | XMS REPORT | Continuity of Care Document ---
Author Author Karissa ADAMS, [facility] Address [address] [place] [address] Phone Care Team Providers Care Heater Installer Name Role Phone Yolie Negron FALGUNI Unavailable Payers Payer name Insurance type Covered constitution party ID Authorization(s) Unknown Problems Condition Effective Dates (start - stop) Clinical Status Abnormal involuntary movements - Mild Ankle pain - *Acute Insomnia, Other - *Chronic Superficial bruising of lower leg - *Acute Leg pain - *Acute Unspecified general medical examination - *Chronic Routine Medical Exam - Atrial Fibrillation - *Chronic Tremor - *Chronic Cerebrovascular disease - *Chronic H/O carotid endarterectomy - *Chronic Atrial Fibrillation - *Controlled LBBB - *Chronic Pharyngitis - *Acute Cough - *Acute Arm fracture - *Acute Seborrheic keratosis - *Chronic Wrist fracture - *Acute Wrist fracture - *Chronic MAL ROSE RECTOSIGMOID JCT - PURE HYPERCHOLESTEROLEM - BENIGN HYPERTENSION - ATRIAL FIBRILLATION - Skin lesion - *Chronic Medicare annual wellness visit, subsequent - *Chronic Abnormality of gait - *Chronic Atrial Fibrillation - Episodic Hypertension, Unspecified - *Controlled LBBB (left bundle branch block) - *Chronic Debility, unspecified - *Acute Hypertension, Unspecified - *Chronic Atrial Fibrillation - *Chronic Other and unspecified hyperlipidemia - *Chronic Wrist fracture - *Resolved Hypertension, Unspecified - *Chronic Enthesopathy of ankle and tarsus, unspecified - *Acute Corns and callosities - *Acute Family History Family Member Diagnosis Age At Onset Status Mother (Unknown) Osteoporosis Yes Brother (Unknown) Hypertension Yes Mother (Unknown) Osteoarthritis Yes Brother (Unknown) Hyperlipidemia Yes Social History Social History Element Description Quantity Unknown Allergies, Adverse Reactions, Alerts Substance Reaction Severity Status Unknown Medications Medication Instructions Dosage Effective Dates (start - stop) Status Citracal Regular 250 mg-200 unit tablet take 2 by Oral route every day 0 - Active Centrum Silver 0.4 mg-300 mcg-250 mcg tablet take 1 by Oral route every day 0 - Active potassium chloride ER 20 mEq tablet,extended release(part/cryst) One tablet by mouth daily - Active Reclast 5 mg/100 mL intravenous solution inject 5 Milligram by Intravenous route every year Given 04/18/2013 0 - Active flecainide 50 mg tablet Take 1 tablet by mouth twice a day. - Active hydrochlorothiazide 25 mg tablet Take 1 by mouth every day. - Active aspirin, buffered 81 mg tablet take 1 Tablet by Oral route every day 0 - Active zolpidem 5 mg tablet take 0.5 - 1 Tablet (2.5MG) by oral route every bedtime as needed. 2.5 MG - Active warfarin 3 mg tablet Take 1 tablet by mouth daily or as directed by physician. - Active atorvastatin 10 mg tablet take 1 tablet (10MG) by oral route every day 10 MG - Active losartan 50 mg tablet Take 1 tablet by mouth every day. - Active digoxin 125 mcg tablet Take 1 tablet by mouth every day. - Active Sinemet 10 mg-100 mg tablet take 1 tablet by oral route 3 times every day 0 - Active Norvasc 5 mg tablet Take 1 tablet by mouth every day. - Active Immunizations Vaccine Date Status Comments hep A (ped/adol, 2 dose) completed - Completed reason: source unspecified hep A (ped/adol, 2 dose) completed - Completed reason: source unspecified Td (adult) completed - Completed reason: source unspecified pneumo (2 yrs or older) (PPV23) completed - Completed reason: source unspecified Results Test Name Date and Time Measure Units Reference Range Abnormal Flag Comments Unknown Vital Signs Date / Time: Height Weight Pulse Rate Blood Pressure Temperature /10:47:00 67.88 in 165.00 lbs 64 /min 124/72 mm[Hg] Procedures Procedure Date Unknown Encounters Encounter Location Date Patient Visit [facility] Patient [facility] Patient Visit [facility] Patient Visit [facility] Patient Visit [facility] Patient Visit [facility] Patient Visit [facility] Patient Visit [facility] Patient Visit [facility] Patient Visit [facility] Patient Visit Patient Visit Patient Visit [facility] Patient [facility] Patient Visit [facility] Patient Visit [facility] Patient Visit Patient Visit [facility] Patient Visit [facility] Patient [facility] Patient [facility] Patient Visit [facility] Patient Visit [facility] Patient Visit [facility] Patient Visit [facility] Patient Visit [facility] Advance Directives Directive Effective Date Unknown
--- OUTSIDE RECORDS SUMMARY | 2017-01-19 07:45 | XMS REPORT | Referral Summary ---
Author Author [facility] Organization [facility] Address Unknown Phone Unavailable Care Team Providers Care Sock Knitting Machine Operator Name Role Phone Fatoumata Negron Primary Care Physician [phone] Encounter VC Date(s): 11/15/15 - 11/22/15 [facility] [address] [place] [address] Discharge Diagnosis: Chronic atrial fibrillation Discharge Diagnosis: Presence of permanent cardiac pacemaker Discharge Diagnosis: Pericardial effusion Discharge Diagnosis: Idiopathic pericardial effusion Discharge Disposition: 01-Home or Self Care Attending Physician: Kendra Simons MD Admitting Physician: Julee Lutz DO Vital Signs Most recent to 1 oldest [Reference Range]: Temperature Axillary 36.6 degC [35.2-36.7 degC] (11/17/15 10:57 AM) Temperature Oral 36.7 degC [35.8-37.3 degC] (11/22/15 12:23 PM) Temperature Temporal 36.6 degC Artery [36.3-37.8 (11/19/15 7:00 AM) degC] Apical Heart Rate 83 bpm [60-100 bpm] (11/22/15 12:23 PM) Peripheral Pulse 83 bpm Rate [60-100 bpm] (11/22/15 8:36 AM) Heart Rate Monitored 64 bpm [60-100 bpm] (11/17/15 1:15 PM) Respiratory Rate 20 br/min [14-20 br/min] (11/22/15 12:23 PM) Blood Pressure 129/80 mmHg [90-140/60-90 mmHg] (11/22/15 12:23 PM) Mean Arterial 80 mmHg Pressure, Cuff (11/18/15 8:00 PM) SpO2 95 % (11/22/15 12:23 PM) Problem List Condition Effective Dates Status [...] day), # 90 tabs, 3 Refill(s), Pharmacy: [id number], 1 tabs Oral Bedtime (once a day) [...] Daily, # 90 tabs, 3 Refill(s), Pharmacy: [id number], 1 tabs Oral Daily Start Date: 07/06/15 [...] Refill(s) Start Date: 11/15/15 Status: Ordered Results Hematology Most recent to 1 oldest [Reference Range]: WBC [4.8-10.8 4.6 10*3/uL 10*3/uL] *LOW* (11/20/15 6:05 AM) RBC [4.00-5.20] 4.10 (11/20/15 6:05 AM) Hgb [12.0-16.0 12.7 gm/dL gm/dL] (11/20/15 6:05 AM) Hct [37.0-47.0 %] 38.3 % (11/20/15 6:05 AM) MCV [82.0-99.0 fL] 93.4 fL (11/20/15 6:05 AM) MCH [27.0-32.0 pg] 31.0 pg (11/20/15 6:05 AM) MCHC [32.0-36.0 33.2 gm/dL gm/dL] (11/20/15 6:05 AM) RDW [11.5-14.5 %] 13.3 % (11/20/15 6:05 AM) Platelet [150-400 243 10*3/uL 10*3/uL] (11/20/15 6:05 AM) MPV [9.4-12.4 fL] 9.7 fL (11/20/15 6:05 AM) Immature 0.2 % Granulocytes (11/16/15 5:00 AM) [0.0-1.0 %] Neutrophils [51-75 65 % %] (11/16/15 5:00 AM) Lymphocytes [20-46 15 % %] *LOW* (11/16/15 5:00 AM) Monocytes [4-11 %] 18 % *HI* (11/16/15 5:00 AM) Eosinophils [0-4 %] 2 % (11/16/15 5:00 AM) Basophils [0-2 %] 0 % (11/16/15 5:00 AM) Neutro Absolute 3.39 10*3 [1.90-7.00 10*3] (11/16/15 5:00 AM) Lymph Absolute 0.79 10*3 [0.80-3.30 10*3] *LOW* (11/16/15 5:00 AM) [place] Absolute 0.92 10*3 [0.30-1.00 10*3] (11/16/15 5:00 AM) Eos Absolute 0.10 10*3 [0.00-0.50 10*3] (11/16/15 5:00 AM) Baso Absolute 0.02 10*3 [0.00-0.20 10*3] (11/16/15 5:00 AM) Nucleated RBC 0.0 /100 WBC Automated [0 /100 (11/16/15 5:00 AM) WBC] Sed Rate [0-23] 6 (11/15/15 6:59 PM) Coagulation Most recent to 1 oldest [Reference Range]: INR [0.9-1.2] 1.9 *HI* (11/22/15 4:51 AM) Chemistry Most recent to 1 oldest [Reference Range]: Sodium Lvl [136-144 135 mEq/L mEq/L] *LOW* (11/22/15 4:52 AM) Potassium Lvl 4.1 mEq/L [3.6-5.1 mEq/L] (11/22/15 4:52 AM) Chloride [99-109 103 mEq/L mEq/L] (11/22/15 4:52 AM) CO2 [22-32 mEq/L] 26 mEq/L (11/22/15 4:52 AM) AGAP [3-20] 6 (11/22/15 4:52 AM) BUN [4-20 mg/dL] 16 mg/dL (11/22/15 4:52 AM) Glucose Lvl [70-100 89 mg/dL mg/dL] (11/22/15 4:52 AM) Creatinine Lvl 0.65 mg/dL [0.44-1.03 mg/dL] (11/22/15 4:52 AM) eGFR [>60] >60 1 (11/22/15 4:52 AM) Calcium Lvl 8.6 mg/dL [8.6-10.0 mg/dL] (11/22/15 4:52 AM) Albumin Lvl [3.5-4.8 2.4 gm/dL gm/dL] *LOW* (11/20/15 6:05 AM) Total Protein 4.9 gm/dL [6.1-7.9 gm/dL] *LOW* (11/16/15 5:00 AM) Globulin [1.9-4.3 2.1 gm/dL gm/dL] (11/16/15 5:00 AM) ALT [14-54 U/L] 8 U/L *LOW* (11/16/15 5:00 AM) AST [15-41 U/L] 26 U/L (11/16/15 5:00 AM) Alk Phos [26-104 70 U/L U/L] (11/16/15 5:00 AM) Bili Total [0.2-1.2 1.2 mg/dL 2 mg/dL] (11/16/15 5:00 AM) LDH [98-192 U/L] 227 U/L *HI* (11/22/15 4:52 AM) Magnesium Lvl 2.0 mg/dL [1.8-2.5 mg/dL] (11/20/15 6:05 AM) Phosphorus [2.4-4.7 3.1 mg/dL 3 mg/dL] (11/20/15 6:05 AM) BNP [0-99 pg/mL] 149 pg/mL *HI* (11/15/15 6:59 PM) Blood Glucose, 94 mg/dL Capillary [74-106 (11/17/15 11:09 AM) mg/dL] TSH with Reflex Free 2.40 T4 [0.35-5.50] (11/15/15 6:59 PM) 1Result Comment: Multiply eGFR results by 1.21 for race. 2Result Comment: Naproxen, specifically the metabolite O-desmethylnaproxen, may cause spurious elevation in Total Bilirubin levels. 3Result Comment: High dosages of liposomal Amphotericin B (AmBisome) therapy or other drug preparations that use a liposomal envelope to facilitate drug delivery may cause falsely elevated results for phosphorus. Therapeutic Drug Monitoring Most recent to 1 oldest [Reference Range]: Digoxin Lvl [0.8-2.0 0.8 ng/mL ng/mL] (11/16/15 5:00 AM) Microbiology Reports TEST: Fluid Culture and Smear STATUS: Order in Progress BODY SITE: SOURCE: Pleural Fluid COLLECTED DATE/TIME: 11/21/15 1:00 PM Fluid Culture No growth TEST: Fluid Culture and Smear STATUS: Auth (Verified) BODY SITE: SOURCE: Pericardial Fluid COLLECTED DATE/TIME: 11/17/15 1:22 PM Gram Smear Few (1-5/OIF) white blood cells No microorganisms observed TEST: Fungus Culture & Calcofluor White Stain STATUS: Order in Progress BODY SITE: SOURCE: Pericardial Fluid COLLECTED DATE/TIME: 11/17/15 1:22 PM Calcofluor White Stain No fungal elements seen TEST: Anaerobic Culture STATUS: Auth (Verified) BODY SITE: SOURCE: Pericardial Fluid COLLECTED DATE/TIME: 11/17/15 1:22 PM Anaerobic Culture No anaerobes isolated TEST: Acid Fast Bacilli Culture and Smear STATUS: Order in Progress BODY SITE: SOURCE: Pericardial Fluid COLLECTED DATE/TIME: 11/17/15 1:22 PM Acid Fast Smear Only No acid fast bacilli seen Immunizations Vaccine Date Refusal Reason hepatitis A pediatric vaccine 09/03/98 hepatitis A pediatric vaccine 02/25/98 pneumococcal 13-valent conjugate vaccine 11/10/14 pneumococcal 23-polyvalent vaccine 11/30/08 tetanus-diphth toxoids (Td) adult/adol 11/25/07 Procedures Procedure Date Related Diagnosis Body Site Pericardiocentesis1 11/17/15 Pericardiocentesis; initial.. 11/17/15 Colonoscopic polypectomy2 04/22/12 Colonoscopic polypectomy3 10/14/01 [...]
--- OUTSIDE RECORDS SUMMARY | 2017-01-19 07:45 | XMS REPORT | Referral Summary ---
Author Author [facility], [facility] Organization [facility] Address Unknown Phone Unavailable Care Team Providers Care Bar Finish Operator Name Role Phone Fatoumata Negron Primary Care Physician [phone] Encounter VC Date(s): 07/29/15 - 07/29/15 [facility] [address] [place] [address] Discharge Disposition: 01-Home or Self [...] day), # 90 tabs, 3 Refill(s), Pharmacy: [facility] [id number], 1 tabs Oral Bedtime (once a day) Start Date: 07/19/15 Status: Ordered carbidopa-levodopa 25 mg-100 mg oral tablet See Instructions, 1 TABS ORAL TID, # 90 tabs, 5 Refill(s), eRx: [facility] [id number], 1 TABS ORAL TID Start Date: 12/06/15 Status: Ordered Centrum Silver 1 tabs, Oral, Daily, 0 Refill(s) Start Date: 04/09/14 Status: Ordered Citracal + D 250MG-200UNITS - 2 CAPS, Oral, Daily, 0 Refill(s) Start Date: 04/09/14 Status: Ordered colchicine 0.6 mg oral tablet 0.6 mg 1 tabs, Oral, BID, # 60 tabs, 0 Refill(s), Pharmacy: [facility] [id number], 1 tabs Oral BID Start Date: 12/21/15 Status: Ordered digoxin 125 mcg (0.125 mg) oral tablet 125 mcg 1 tabs, Oral, Daily, # 90 tabs, 3 Refill(s), Pharmacy: [facility] [id number], 1 tabs Oral Daily Start Date: 07/06/15 Status: Ordered Diltiazem Hydrochloride ER 240 mg/24 hours oral capsule, extended release See Instructions, 1 CAPS ORAL DAILY, # 30 caps, 3 Refill(s), eRx: [facility] [id number], 1 CAPS ORAL DAILY Start Date: 02/03/16 Status: Ordered furosemide 40 mg oral tablet See Instructions, TAKE 1 TABLET BY MOUTH EVERY DAY, # 30 tabs, eRx: [facility] [id number], TAKE 1 TABLET BY MOUTH EVERY DAY Start Date: 02/04/16 Status: Ordered losartan 100 mg oral tablet 100 mg 1 tabs, Oral, Daily, home dose, # 90 tabs, 3 Refill(s), Pharmacy: [facility] [id number], 1 tabs Oral Daily,Instr:home dose Start Date: 11/25/15 Status: Ordered MiraLax oral powder for reconstitution 17 g, Oral, Daily, as needed, 0 Refill(s) Start Date: 12/10/15 Status: Ordered potassium chloride 20 mEq oral tablet, extended release See Instructions, TAKE 1 TABLET BY MOUTH TWICE DAILY, # 60 tabs, eRx: [facility] [id number], TAKE 1 TABLET BY MOUTH TWICE DAILY [...] needed, # 15 tabs, 6 Refill(s), Pharmacy: [facility] [id number], 1 tabs oral twice weekly as needed [...]
--- OUTSIDE RECORDS SUMMARY | 2017-01-19 07:45 | XMS REPORT | Referral Summary ---
Author Author [facility] Organization [facility] Address Unknown Phone Unavailable Care Team Providers Care Liquor Store Manager Name Role Phone Fatoumata Negron Primary Care Physician [phone] Encounter Date(s): 04/14/15 - 04/14/15 [facility] [address] [place], [place] [address] Discharge Diagnosis: Sinus node dysfunction Discharge Diagnosis: Presence of permanent cardiac pacemaker Discharge Diagnosis: AF (atrial fibrillation) Discharge Disposition: 01-Home or Self Care Attending Physician: Marco Antonio Kendall MD Admitting Physician: Marco Antonio Kendall MD Referring Physician: Yolie Negron MD Vital Signs Most recent to 1 oldest [Reference Range]: Peripheral Pulse 92 bpm Rate [60-100 bpm] (04/14/15 4:23 PM) Blood Pressure 106/64 mmHg [90-140/60-90 mmHg] (04/14/15 4:23 PM) Problem List Condition Effective Dates Status [...] # 90 tabs, 3 Refill(s), eRx : [facility] [id number], TAKE 1 TABLET BY MOUTH EVERY DAY Start Date: 04/26/15 Status: Ordered Aspir 81 81 mg, Oral, Daily, 1 tab, 0 Refill(s) Start Date: 05/26/14 Status: Ordered atorvastatin 10 mg oral tablet 10 mg 1 tabs, Oral, Bedtime (once a day), # 90 tabs, 3 Refill(s), Pharmacy: [facility] [id number], 1 tabs Oral Bedtime (once a day) Start Date: 07/19/15 Status: Ordered carbidopa-levodopa 25 mg-100 mg oral tablet See Instructions, 1 TABS ORAL TID,INSTR:TAKE AT 7AM, 2PM, 9PM, # 90 tabs, 5 Refill(s), eRx: [facility] [id number], 1 TABS ORAL TID,INSTR:TAKE AT 7AM, 2PM, 9PM Start Date: 05/18/15 Status: Ordered Centrum Silver 0.4mg-300mcgmcg - 1 tab, Daily, 0 Refill(s) Start Date: 04/09/14 Status: Ordered Citracal + D 250MG-200UNITS - 2 CAPS, Oral, Daily, 0 Refill(s) Start Date: 04/09/14 Status: Ordered digoxin 125 mcg (0.125 mg) oral tablet 125 mcg 1 tabs, Oral, Daily, # 90 tabs, 3 Refill(s), Pharmacy: [facility] [id number], 1 tabs Oral Daily Start Date: 07/06/15 Status: Ordered Diltiazem Hydrochloride ER 120 mg/24 hours oral capsule, extended release 120 mg 1 caps, Oral, Daily, # 30 caps, 3 Refill(s), Pharmacy: [facility] [id number], 1 caps Oral Daily Start Date: 08/17/15 Status: Ordered losartan 50 mg oral tablet 50 mg 1 tabs, Oral, Daily, # 90 tabs, 3 Refill(s), Pharmacy: [facility] [id number], 1 tabs Oral Daily Start Date: 07/06/15 Status: Ordered potassium chloride 20 mEq oral tablet, extended release See Instructions, 1 TABS ORAL DAILY, # 30 tabs, 3 Refill(s), eRx: [facility] [id number], 1 TABS ORAL DAILY Start Date: 08/16/15 Status: Ordered Reclast 5 mg/100 mL intravenous solution 5 mg 100 mL, IV, qYear, yearly, # 100 mL, 0 Refill(s), other reason (Rx) Start Date: 05/14/15 Stop Date: 05/14/16 Status: Ordered warfarin 1 mg oral tablet See Instructions, TAKE 1 TABLET BY MOUTH EVERY DAY, # 30 tabs, eRx: [facility] [id number], TAKE 1 TABLET BY MOUTH EVERY DAY [...] Extracted from: Title: Office Visit Note Author: Marco Antonio Kendall MD Date: 04/14/15 Assessment/Plan AF (atrial fibrillation) Ordered: Office Visit Level 3 Est 62907 Pm Device Progr Eval Dual 11246 Request for Cardiovascular ECG Return to Clinic Presence of permanent cardiac pacemaker Ordered: Office Visit Level 3 Est 91066 Pm Device Progr Eval Dual 60157 Return to Clinic Sinus node dysfunction Orders: sotalol, 40 mg 0.5 tabs, Oral, BID, # 60 tabs, 6 Refill(s), Pharmacy: [facility] [id number], 0.5 tabs Oral BID Referrals to Other Providers Referred by: Marco Antonio Kendall MD
--- OUTSIDE RECORDS SUMMARY | 2017-01-19 07:45 | XMS REPORT | Referral Summary ---
Author Author [facility] Organization [facility] Address Unknown Phone Unavailable Care Team Providers Care Waiter/Waitress Informal Name Role Phone Fatoumata Negron Primary Care Physician [phone] Encounter VC Date(s): 07/07/15 - 07/07/15 [facility] [address] [place] [address] Final: ATRIAL FIBRILLATION Final: SINOATRIAL NODE DYSFUNCTION Final: CORONARY ATHEROSCLEROSIS OF [place] CORONARY ARTERY Final: UNSPECIFIED ESSENTIAL HYPERTENSION Final: OTHER AND UNSPECIFIED HYPERLIPIDEMIA Final: UNSPECIFIED IDIOPATHIC PERIPHERAL NEUROPATHY Final: OSTEOPOROSIS, UNSPECIFIED Final: PERSONAL HISTORY OF MALIGNANT NEOPLASM OF LARGE INTESTINE Final: Long-Term (Current) Use of Anticoagulants Final: Long-Term (Current) Use of Aspirin Final: Long-Term (Current) Use of Other Medications Discharge Disposition: 01-Home or Self Care Attending Physician: Marco Antonio Kendall MD Admitting Physician: Marco Antonio Kendall MD Vital Signs Most recent to 1 oldest [Reference Range]: Temperature Tympanic 36.5 degC [36.6-38.1 degC] *LOW* (07/07/15 10:05 AM) Temperature Temporal 36.6 degC Artery [36.3-37.8 (07/07/15 12:30 PM) degC] Peripheral Pulse 78 bpm Rate [60-100 bpm] (07/07/15 12:30 PM) Heart Rate Monitored 75 bpm [60-100 bpm] (07/07/15 11:40 AM) Respiratory Rate 18 br/min [14-20 br/min] (07/07/15 12:30 PM) Blood Pressure 128/73 mmHg [90-140/60-90 mmHg] (07/07/15 12:30 PM) SpO2 97 % (07/07/15 12:30 PM) Problem List Condition Effective Dates Status [...] day), # 90 tabs, 3 Refill(s), Pharmacy: [facility] [id number], 1 tabs Oral Bedtime (once a day) Start Date: 07/19/15 Status: Ordered carbidopa-levodopa 25 mg-100 mg oral tablet See Instructions, 1 TABS ORAL TID, # 90 tabs, 5 Refill(s), eRx: [facility] [id number], 1 TABS ORAL TID Start Date: 12/06/15 Status: Ordered Centrum Silver 1 tabs, Oral, Daily, 0 Refill(s) Start Date: 04/09/14 Status: Ordered Citracal + D 250MG-200UNITS - 2 CAPS, Oral, Daily, 0 Refill(s) Start Date: 04/09/14 Status: Ordered colchicine 0.6 mg oral tablet 0.6 mg 1 tabs, Oral, BID, # 60 tabs, 0 Refill(s), Pharmacy: [facility] 39100, 1 tabs Oral BID Start Date: 12/21/15 Status: Ordered digoxin 125 mcg (0.125 mg) oral tablet 125 mcg 1 tabs, Oral, Daily, # 90 tabs, 3 Refill(s), Pharmacy: [facility] 23659, 1 tabs Oral Daily Start Date: 07/06/15 Status: Ordered Diltiazem Hydrochloride ER 240 mg/24 hours oral capsule, extended release 240 mg 1 caps, Oral, Daily, # 30 caps, 0 Refill(s), Pharmacy: [facility] [id number], 1 caps Oral Daily Start Date: 01/06/16 Status: Ordered furosemide 40 mg oral tablet See Instructions, TAKE 1 TABLET BY MOUTH EVERY DAY, # 30 tabs, eRx: [facility] [id number], TAKE 1 TABLET BY MOUTH EVERY DAY Start Date: 01/06/16 Status: Ordered losartan 100 mg oral tablet 100 mg 1 tabs, Oral, Daily, home dose, # 90 tabs, 3 Refill(s), Pharmacy: [facility] 17318, 1 tabs Oral Daily,Instr:home dose Start Date: 11/25/15 Status: Ordered MiraLax oral powder for reconstitution 17 g, Oral, Daily, as needed, 0 Refill(s) Start Date: 12/10/15 Status: Ordered potassium chloride 20 mEq oral tablet, extended release See Instructions, TAKE 1 TABLET BY MOUTH TWICE DAILY, # 60 tabs, eRx: [facility] [id number], TAKE 1 TABLET BY MOUTH TWICE DAILY [...] needed, # 15 tabs, 6 Refill(s), Pharmacy: [facility] 63287, 1 tabs oral twice weekly as needed Start Date: 12/10/15 Status: Ordered Results Coagulation Most recent to 1 oldest [Reference Range]: INR [0.9-1.2] 2.7 *HI* (07/07/15 10:11 AM) Chemistry Most recent to 1 oldest [Reference Range]: Sodium Lvl [136-144 137 mEq/L mEq/L] (07/07/15 10:11 AM) Potassium Lvl 4.1 mEq/L [3.6-5.1 mEq/L] (07/07/15 10:11 AM) Chloride [99-109 103 mEq/L mEq/L] (07/07/15 10:11 AM) CO2 [22-32 mEq/L] 29 mEq/L (07/07/15 10:11 AM) AGAP [3-20] 5 (07/07/15 10:11 AM) BUN [4-20 mg/dL] 9 mg/dL (07/07/15 10:11 AM) Glucose Lvl [70-100 105 mg/dL mg/dL] *HI* (07/07/15 10:11 AM) Creatinine Lvl 0.69 mg/dL [0.44-1.03 mg/dL] (07/07/15 10:11 AM) eGFR [>60] >60 1 (07/07/15 10:11 AM) Calcium Lvl 9.1 mg/dL [8.6-10.0 mg/dL] (07/07/15 10:11 AM) 1Result Comment: Multiply eGFR results by 1.21 for race. Immunizations Vaccine Date Refusal Reason hepatitis A [...]
--- OUTSIDE RECORDS SUMMARY | 2017-01-19 07:45 | XMS REPORT | Referral Summary ---
Author Organization Unknown Address Unknown Phone Unavailable Care Team Providers Care Well Reactivator Operator Name Role Phone Fatoumata Negron Primary Care Physician [phone] Encounter VC Date(s): 11/23/14 - 11/23/14 [facility] [address] [address] [place], [place] [address] Discharge Diagnosis: Ganglion cyst Discharge Disposition: Home or Self Care Attending Physician: Aston Andersen MD Admitting Physician: Aston Andersen MD Referring Physician: Yolie Negron MD Vital Signs Most recent to 1 oldest [Reference Range]: Blood Pressure 138/64 mmHg [90-140/60-90 mmHg] (11/23/14 1:35 PM) Problem List Condition Effective Dates Status [...] EVERY DAY, # 90 unknown unit, eRx: [facility] [id number], TAKE 1 TABLET (10MG) BY ORAL ROUTE [...] DAILY, # 30 tabs, 3 Refill(s), eRx: [facility] [id number], 1 TABS ORAL DAILY Special Instructions: 1 TABS ORAL DAILY Start Date: 07/30/14 Status: Ordered digoxin 125 mcg (0.125 mg) oral tablet 1 tabs, Oral, Daily, 0 Refill(s) Start Date: 04/09/14 Status: Ordered flecainide 50 mg oral tablet See Instructions, 1.5 TABS ORAL Q12HR, # 270 tabs, 2 Refill(s), eRx: [facility] [id number], 1.5 TABS ORAL Q12HR Special Instructions: 1.5 TABS ORAL Q12HR Start Date: 09/23/14 Status: Ordered losartan 50 mg oral tablet See Instructions, TAKE 1 TABLET BY MOUTH EVERY DAY., # 90 unknown unit, 2 Refill (s), eRx: [facility] [id number], TAKE 1 TABLET BY MOUTH EVERY DAY. [...] 0 Refill(s) Special Instructions: yearly Start Date: 6/5/14 Status: Ordered Sinemet 10 mg-100 mg oral tablet 1 tabs, Oral, TID, 0 Refill(s) Start Date: 04/09/14 Status: Ordered warfarin 3 mg oral tablet See Instructions, TAKE 1 TABLET BY MOUTH DAILY OR DIRECTED BY PHYSICIAN., # 90 unknown unit, 3 Refill(s), eRx: [facility] 25977, TAKE 1 TABLET BY MOUTH DAILY OR [...] Education Author: Aston Andersen MD Date : 11/23/14 Family Medicine Ganglion Cyst A ganglion cyst [...] ganglion cyst presses on a nerve. Your vice president media relations may be weak and you may have [...] Released: 10/19/2001 Document Revised: 07/16/2013 Document Reviewed: [facility] Patient Information 2014 [employer] [facility]. No follow up information was provided.
--- OUTSIDE RECORDS SUMMARY | 2017-01-19 07:45 | XMS REPORT | Referral Summary ---
Author Author [facility], [facility] Organization [facility] Address Unknown Phone Unavailable Care Team Providers Care Supply Chain Procurement Manager Name Role Phone Fatoumata Negron Primary Care Physician [phone] Encounter Date(s): 08/18/15 - 08/18/[address] [facility] [address] [facility] [address] [place], [place] [address] Discharge Diagnosis: Gait disturbance Discharge Diagnosis: Sensory peripheral neuropathy Discharge Diagnosis: Meningioma Discharge Diagnosis: Carotid artery [...] # 90 tabs, 3 Refill(s), eRx : [facility] [id number], TAKE 1 TABLET BY MOUTH EVERY DAY Start Date: 04/26/15 Status: Ordered Aspir 81 81 mg, Oral, Daily, 1 tab, 0 Refill(s) Start Date: 05/26/14 Status: Ordered atorvastatin 10 mg oral tablet 10 mg 1 tabs, Oral, Bedtime (once a day), # 90 tabs, 3 Refill(s), Pharmacy: [facility] [id number], 1 tabs Oral Bedtime (once a day) Start Date: 07/19/15 Status: Ordered carbidopa-levodopa 25 mg-100 mg oral tablet See Instructions, 1 TABS ORAL TID,INSTR:TAKE AT 7AM, 2PM, 9PM, # 90 tabs, 5 Refill(s), eRx: [facility] [id number], 1 TABS ORAL TID,INSTR:TAKE AT 7AM, 2PM, 9PM Start Date: 05/18/15 Status: Ordered Centrum Silver 0.4mg-300mcgmcg - 1 tab, Daily, 0 Refill(s) Start Date: 04/09/14 Status: Ordered Citracal + D 250MG-200UNITS - 2 CAPS, Oral, Daily, 0 Refill(s) Start Date: 04/09/14 Status: Ordered digoxin 125 mcg (0.125 mg) oral tablet 125 mcg 1 tabs, Oral, Daily, # 90 tabs, 3 Refill(s), Pharmacy: [facility] [id number], 1 tabs Oral Daily Start Date: 07/06/15 Status: Ordered Diltiazem Hydrochloride ER 120 mg/24 hours oral capsule, extended release 120 mg 1 caps, Oral, Daily, # 30 caps, 3 Refill(s), Pharmacy: [facility] [id number], 1 caps Oral Daily Start Date: 08/17/15 Status: Ordered losartan 50 mg oral tablet 50 mg 1 tabs, Oral, Daily, # 90 tabs, 3 Refill(s), Pharmacy: [facility] [id number], 1 tabs Oral Daily Start Date: 07/06/15 Status: Ordered potassium chloride 20 mEq oral tablet, extended release See Instructions, 1 TABS ORAL DAILY, # 30 tabs, 3 Refill(s), eRx: [facility] [id number], 1 TABS ORAL DAILY Start Date: 08/16/15 Status: Ordered Reclast 5 mg/100 mL intravenous solution 5 mg 100 mL, IV, qYear, yearly, # 100 mL, 0 Refill(s), other reason (Rx) Start Date: 05/14/15 Stop Date: 05/14/16 Status: Ordered warfarin 1 mg oral tablet See Instructions, 1 TABS ORAL DAILY, # 30 tabs, eRx: [facility] [id number] , 1 TABS ORAL DAILY Start Date: 08/18/15 Status: Ordered warfarin 1 mg oral tablet 0.5 mg 0.5 tabs, Oral, Daily, # 15 tabs, 0 Refill(s), Pharmacy: [facility] [id number], 0.5 tabs Oral Daily Start Date: 08/13/15 [...]
--- OUTSIDE RECORDS SUMMARY | 2017-01-19 07:45 | XMS REPORT | Referral Summary ---
Author Author [facility] Organization [facility] Address Unknown Phone Unavailable Care Team Providers Care Cnc Field Service Engineer Name Role Phone Fatoumata Negron Primary Care Physician [phone] Encounter Date(s): 04/14/15 - 04/14/[address] [facility] [address] [facility] [address] [place], [place] [address] Discharge Diagnosis: Tremor Discharge Diagnosis: Decreased [...] # 90 tabs, 3 Refill(s), eRx : [facility] [id number], TAKE 1 TABLET BY MOUTH EVERY DAY Start Date: 04/26/15 Status: Ordered Aspir 81 81 mg, Oral, Daily, 1 tab, 0 Refill(s) Start Date: 05/26/14 Status: Ordered atorvastatin 10 mg oral tablet 10 mg 1 tabs, Oral, Bedtime (once a day), # 90 tabs, 3 Refill(s), Pharmacy: [facility] [id number], 1 tabs Oral Bedtime (once a day) Start Date: 07/19/15 Status: Ordered carbidopa-levodopa 25 mg-100 mg oral tablet See Instructions, 1 TABS ORAL TID,INSTR:TAKE AT 7AM, 2PM, 9PM, # 90 tabs, 5 Refill(s), eRx: [facility] [id number], 1 TABS ORAL TID,INSTR:TAKE AT 7AM, 2PM, 9PM Start Date: 05/18/15 Status: Ordered Centrum Silver 0.4mg-300mcgmcg - 1 tab, Daily, 0 Refill(s) Start Date: 04/09/14 Status: Ordered Citracal + D 250MG-200UNITS - 2 CAPS, Oral, Daily, 0 Refill(s) Start Date: 04/09/14 Status: Ordered digoxin 125 mcg (0.125 mg) oral tablet 125 mcg 1 tabs, Oral, Daily, # 90 tabs, 3 Refill(s), Pharmacy: [facility] [id number], 1 tabs Oral Daily Start Date: 07/06/15 Status: Ordered Diltiazem Hydrochloride ER 120 mg/24 hours oral capsule, extended release 120 mg 1 caps, Oral, Daily, # 30 caps, 3 Refill(s), Pharmacy: [facility] [id number], 1 caps Oral Daily Start Date: 08/17/15 Status: Ordered losartan 50 mg oral tablet 50 mg 1 tabs, Oral, Daily, # 90 tabs, 3 Refill(s), Pharmacy: [facility] [id number], 1 tabs Oral Daily Start Date: 07/06/15 Status: Ordered potassium chloride 20 mEq oral tablet, extended release See Instructions, 1 TABS ORAL DAILY, # 30 tabs, 3 Refill(s), eRx: [facility] [id number], 1 TABS ORAL DAILY Start Date: 08/16/15 Status: Ordered Reclast 5 mg/100 mL intravenous solution 5 mg 100 mL, IV, qYear, yearly, # 100 mL, 0 Refill(s), other reason (Rx) Start Date: 05/14/15 Stop Date: 05/14/16 Status: Ordered warfarin 1 mg oral tablet See Instructions, TAKE 1 TABLET BY MOUTH EVERY DAY, # 30 tabs, eRx: [facility] [id number], TAKE 1 TABLET BY MOUTH EVERY DAY [...] Flecainide can cause tremors, advised discuss with construction driller ? consider ELOISE scan Diagnosis: Decreased vibratory [...]
--- OUTSIDE RECORDS SUMMARY | 2017-01-19 07:46 | XMS REPORT | Referral Summary ---
Author Author [facility] Organization [facility] Address Unknown Phone Unavailable Care Team Providers Care Septic Cleaner Name Role Phone Fatoumata Negron Primary Care Physician [phone] Encounter Date(s): 08/03/15 - 08/03/15 [facility] [address] [place], [place] [address] Discharge Diagnosis: Presence of permanent cardiac pacemaker [...] day), # 90 tabs, 3 Refill(s), Pharmacy: [facility] [id number], 1 tabs Oral Bedtime (once a day) Start Date: 07/19/15 Status: Ordered carbidopa-levodopa 25 mg-100 mg oral tablet See Instructions, 1 TABS ORAL TID, # 90 tabs, 5 Refill(s), eRx: [facility] [id number], 1 TABS ORAL TID Start Date: 12/06/15 Status: Ordered Centrum Silver 1 tabs, Oral, Daily, 0 Refill(s) Start Date: 04/09/14 Status: Ordered Citracal + D 250MG-200UNITS - 2 CAPS, Oral, Daily, 0 Refill(s) Start Date: 04/09/14 Status: Ordered colchicine 0.6 mg oral tablet 0.6 mg 1 tabs, Oral, BID, # 60 tabs, 0 Refill(s), Pharmacy: [facility] [id number], 1 tabs Oral BID Start Date: 12/21/15 Status: Ordered digoxin 125 mcg (0.125 mg) oral tablet 125 mcg 1 tabs, Oral, Daily, # 90 tabs, 3 Refill(s), Pharmacy: [facility] 69418, 1 tabs Oral Daily Start Date: 07/06/15 Status: Ordered Diltiazem Hydrochloride ER 240 mg/24 hours oral capsule, extended release See Instructions, 1 CAPS ORAL DAILY, # 30 caps, 3 Refill(s), eRx: [facility] 19409, 1 CAPS ORAL DAILY Start Date: 02/03/16 Status: Ordered furosemide 40 mg oral tablet See Instructions, TAKE 1 TABLET BY MOUTH EVERY DAY, # 30 tabs, eRx: [facility] [id number], TAKE 1 TABLET BY MOUTH EVERY DAY Start Date: 02/04/16 Status: Ordered losartan 100 mg oral tablet 100 mg 1 tabs, Oral, Daily, home dose, # 90 tabs, 3 Refill(s), Pharmacy: [facility] [id number], 1 tabs Oral Daily,Instr:home dose Start Date: 11/25/15 Status: Ordered MiraLax oral powder for reconstitution 17 g, Oral, Daily, as needed, 0 Refill(s) Start Date: 12/10/15 Status: Ordered potassium chloride 20 mEq oral tablet, extended release See Instructions, TAKE 1 TABLET BY MOUTH TWICE DAILY, # 60 tabs, eRx: [facility] [id number], TAKE 1 TABLET BY MOUTH TWICE DAILY [...] needed, # 15 tabs, 6 Refill(s), Pharmacy: [facility] [id number], 1 tabs oral twice weekly as needed [...] Note Author: Marco Antonio Kendall MD Date: 08/03/15 Assessment/Plan AF (atrial fibrillation) Ordered: Office Visit Level 3 Est 74475 Pm Device Progr Eval Dual 81847 Request for Cardiovascular Echo Return to Clinic Presence of permanent cardiac pacemaker Referrals to Other Providers Referred by: Marco Antonio Kendall MD
--- OUTSIDE RECORDS SUMMARY | 2017-01-19 07:46 | XMS REPORT | Referral Summary ---
Author Author [facility] Organization [facility] Address Unknown Phone Unavailable Care Team Providers Care Reports Developer Name Role Phone Fatoumata Negron Primary Care Physician [phone] Encounter VC Date(s): 12/10/15 - 12/10/15 [facility] [address] [place], [place] [address] Discharge Disposition: 01-Home or Self Care Attending Physician: Marco Antonio Kendall MD Admitting Physician: Marco Antonio Kendall MD Referring Physician: Yolie Negron MD Vital Signs Most recent to 1 oldest [Reference Range]: Peripheral Pulse 80 bpm Rate [60-100 bpm] (12/10/15 12:55 PM) Blood Pressure 130/68 mmHg [90-140/60-90 mmHg] (12/10/15 12:55 PM) Problem List Condition Effective Dates Status [...] day), # 90 tabs, 3 Refill(s), Pharmacy: [facility] [id number], 1 tabs Oral Bedtime (once a day) Start Date: 07/19/15 Status: Ordered carbidopa-levodopa 25 mg-100 mg oral tablet See Instructions, 1 TABS ORAL TID, # 90 tabs, 5 Refill(s), eRx: [facility] [id number], 1 TABS ORAL TID Start Date: 12/06/15 Status: Ordered Centrum Silver 1 tabs, Oral, Daily, 0 Refill(s) Start Date: 04/09/14 Status: Ordered Citracal + D 250MG-200UNITS - 2 CAPS, Oral, Daily, 0 Refill(s) Start Date: 04/09/14 Status: Ordered colchicine 0.6 mg oral tablet 0.6 mg 1 tabs, Oral, BID, # 60 tabs, 0 Refill(s), Pharmacy: [facility] [id number], 1 tabs Oral BID Start Date: 12/10/15 Status: Ordered digoxin 125 mcg (0.125 mg) oral tablet 125 mcg 1 tabs, Oral, Daily, # 90 tabs, 3 Refill(s), Pharmacy: [facility] [id number], 1 tabs Oral Daily Start Date: 07/06/15 [...] dose, # 90 tabs, 3 Refill(s), Pharmacy: [facility] [id number], 1 tabs Oral Daily,Instr:home dose Start Date: [...] needed, # 15 tabs, 6 Refill(s), Pharmacy: [facility] [id number], 1 tabs oral twice weekly as needed [...] smoker Assessment and Plan Extracted from: Title: Warfarin education visit Author: Conchita Kulkarni RN Date: 12/10/15 Pt seen in the office today for warfarin education and INR check. Pt has been on warfarin for some time but just started coming to our clinic for warfarin management. Education below reviewed with pt and copy of education given to pt. Pt verbalized understanding of education. Pt instructed to call with questions at any time. Coumadin (warfarin) Education Warfarin is the generic name for Coumadin. Warfarin and Coumadin are used interchangeably. Warfarin works as a vitamin K antagonist which helps reduce the ability of the body to form clots. Clots can cause a variety of health issues including stroke, pulmonary embolism, and deep vein thrombosis. Indication for warfarin: atrial fibrillation Your lifestyle, diet, medical history, medications and many more reasons change the amount of warfarin needed to keep your blood therapeutic. For that reason, the amount of warfarin in your bloodstream will be monitored by a blood test called International Normalized Ratio or INR. A low INR means your blood is too thick and you will be at risk for clot formation. A high INR means your blood is too thin and puts you at risk for bleeding. You will need frequent INR blood testing by a finger stick or vein stick until your warfarin dosing and INR are stable. Then you will need your INR tested every 2-4 weeks. Therapeutic INR range: 2.0 - 2.5 Notify the anticoagulation nurse of any signs and symptoms of bleeding which include: Dark, black, tarry stools Bright red stools Brown or pink urine Bleeding gums Vomiting blood Nose bleeds Notify the anticoagulation nurse of any signs and symptoms of a thrombotic event which include: Weakness and/or numbness, especially on one side of the body Confusion Difficulty speaking Changes in vision Headache Leg/calf/arm pain or swelling Shortness of breath Chest pain It is important to decrease your risk for trauma and bleeding. Be careful not to fall and avoid activities where you could be injured easily. Report any falls that occur. You many bruise more easily while on warfarin. Warfarin interacts with many drugs including prescription, over the counter, and herbal medications. If you or your doctor add a new medication to your regimen even for a short period of time you must inform the anticoagulation nurse so your warfarin dose can be adjusted. Avoid ibuprofen, naproxen, or aspirin for pain or headaches (Advil, Motrin, etc.) due to increased risk for bleeding. Common over the counter medications that are safe to take with warfarin: Tylenol (less than 1000mg per day), loratadine (Claritin), cetirizine (Zyrtec), diphenhydramine (Benadryl), dextromethorphan (Robitussin), guaifenesin (Mucinex) , calcium carbonate (Tums), ranitidine (Zantac), docusate sodium (Colace) Since varying amounts of vitamin K in your system can affect the way warfarin works it is important to keep a diet consistent in vitamin K. Too much vitamin K will cause your blood to be too thick and too little vitamin K can cause your blood to be too thin. This means you must eat generally the same amount of vitamin K weekly. It may be helpful to keep a food diary. Examples of vegetables high in vitamin K (thickens blood/increases probability of clotting): Cabbage, broccoli, spinach, escarole, greens (samira greens, turnip greens, mustard greens), lettuce (except iceberg), brussels sprouts, endive, kale, cauliflower, avocado, seaweed, green onion, green pepper, liver, lentils, garbanzobeans, soybeans Examples of vegetables low in vitamin K: Green beans, peas, carrots, potatoes, celery, corn, cucumber, eggplant, tomato, pepper, zucchini Limit alcohol intake to two drinks per day or less to avoid increase in INR and increased risk of bleeding. If you partake in more than two drinks per day please notify the nurse for your safety. Take your warfarin at the same time daily. Avoid taking warfarin with a big meal. Notify all of your health care providers (dentists, surgeons, etc.) that you are taking warfarin. Notify the anticoagulation nurse if you: plan to have dental, surgical, or invasive procedures or if you are hospitalized miss a dose or take an extra dose are ill including nausea, vomiting, diarrhea, fever have a new medical diagnoses have a change in medications have a change in level of activity plan on traveling for an extended period of time fall had your INR drawn but did not receive a call within 24 hours Wear a medical alert bracelet to inform others that you are on an anticoagulant. It may be helpful to set up a pill box specifically for warfarin in order to keep your doses accurate. If you become or are planning on becoming , notify the anticoagulation nurse. Warfarin is dangerous to the unborn baby and should not be taken during . As a patient of the anticoagulation clinic you must be an active participant in your care. If you are noncompliant with instructions, INR testing or warfarin dosing you will not be safe and become a liability to the anticoagulation clinic staff and may be released from the clinic. Your anticoagulation nurse: Conchita Kulkarni BREASTFEEDING PEER COUNSELOR [phone] 8am 5pm Sunday Warfarin Follow Up Visit Reviewed warfarin dosing schedule, pill colors, dosages and compliance to regimen. Patient takes dosing regimen as outlined in the anticoagulation flow sheet. Reviewed current medications and interactions with warfarin. Negative review for signs of bleeding including black or red stools, frequent nosebleeds, vomiting blood, bleeding gums, or brown or pink urine. Negative review for signs of clotting including increased confusion, difficulty speaking, unilateral numbness/tingling, changes in vision, headache, extremity swelling, shortness of breath or chest pain. Negative review for new or changes in prescription medications, over the counter medications, or herbal medications. Negative review for new medical diagnoses or changes in medical history. Negative review for recent falls. Negative review for changes in diet or exercise routine. Negative review for upcoming surgeries or procedures. Reviewed education regarding diet consistent in vitamin K, signs of bleeding, signs of clotting and to inform anticoagulation RN with any changes. INR: 2.3 by [employer] machine. Patient given instruction card with warfarin dosing plan and next visit. Addressed in anticoagulation flow sheet. Time spent with patient: 30 minutes
--- OUTSIDE RECORDS SUMMARY | 2017-01-19 07:46 | XMS REPORT | Referral Summary ---
Author Author [facility] [place], [facility] Organization [facility] Address Unknown Phone Unavailable Care Team Providers Care Marine Superintendent Name Role Phone Fatoumata Negron Primary Care Physician [phone] Encounter VC Date(s): 04/15/15 - 04/15/15 [facility] [place], [address] [place] [address] Discharge Diagnosis: Visit for monitoring Reclast therapy Discharge Diagnosis: Tremor Discharge Diagnosis: AF (atrial fibrillation) Discharge Diagnosis: Osteoporosis Discharge Disposition: 01-Home or Self Care Attending Physician: Yolie Negron MD Admitting Physician: Yolie Negron MD Vital Signs Most recent to 1 oldest [Reference Range]: Temperature Tympanic 36.1 degC [36.6-38.1 degC] *LOW* (04/15/15 8:14 AM) Peripheral Pulse 80 bpm Rate [60-100 bpm] (04/15/15 8:14 AM) Respiratory Rate 16 br/min [14-20 br/min] (04/15/15 8:14 AM) Blood Pressure 128/62 mmHg [90-140/60-90 mmHg] (04/15/15 8:14 AM) SpO2 98 % (04/15/15 8:14 AM) Problem List Condition Effective Dates Status [...] # 90 tabs, 3 Refill(s), eRx : [facility] [id number], TAKE 1 TABLET BY MOUTH EVERY DAY Start Date: 04/26/15 Status: Ordered Aspir 81 81 mg, Oral, Daily, 1 tab, 0 Refill(s) Start Date: 05/26/14 Status: Ordered atorvastatin 10 mg oral tablet 10 mg 1 tabs, Oral, Bedtime (once a day), # 90 tabs, 3 Refill(s), Pharmacy: [facility] 10850, 1 tabs Oral Bedtime (once a day) Start Date: 07/19/15 Status: Ordered carbidopa-levodopa 25 mg-100 mg oral tablet See Instructions, 1 TABS ORAL TID,INSTR:TAKE AT 7AM, 2PM, 9PM, # 90 tabs, 5 Refill(s), eRx: [facility] 48059, 1 TABS ORAL TID,INSTR:TAKE AT 7AM, 2PM, 9PM Start Date: 05/18/15 Status: Ordered Centrum Silver 0.4mg-300mcgmcg - 1 tab, Daily, 0 Refill(s) Start Date: 04/09/14 Status: Ordered Citracal + D 250MG-200UNITS - 2 CAPS, Oral, Daily, 0 Refill(s) Start Date: 04/09/14 Status: Ordered digoxin 125 mcg (0.125 mg) oral tablet 125 mcg 1 tabs, Oral, Daily, # 90 tabs, 3 Refill(s), Pharmacy: [facility] 29531, 1 tabs Oral Daily Start Date: 07/06/15 Status: Ordered Diltiazem Hydrochloride ER 120 mg/24 hours oral capsule, extended release 120 mg 1 caps, Oral, Daily, # 30 caps, 3 Refill(s), Pharmacy: [facility] 83775, 1 caps Oral Daily Start Date: 08/17/15 Status: Ordered losartan 50 mg oral tablet 50 mg 1 tabs, Oral, Daily, # 90 tabs, 3 Refill(s), Pharmacy: [facility] [id number], 1 tabs Oral Daily Start Date: 07/06/15 Status: Ordered potassium chloride 20 mEq oral tablet, extended release See Instructions, 1 TABS ORAL DAILY, # 30 tabs, 3 Refill(s), eRx: [facility] [id number], 1 TABS ORAL DAILY Start Date: 08/16/15 Status: Ordered Reclast 5 mg/100 mL intravenous solution 5 mg 100 mL, IV, qYear, yearly, # 100 mL, 0 Refill(s), other reason (Rx) Start Date: 05/14/15 Stop Date: 05/14/16 Status: Ordered warfarin 1 mg oral tablet See Instructions, TAKE 1 TABLET BY MOUTH EVERY DAY, # 30 tabs, eRx: [facility] [id number], TAKE 1 TABLET BY MOUTH EVERY DAY Start Date: 10/04/15 Status: Ordered Results Chemistry Most recent to 1 oldest [Reference Range]: Sodium Lvl [135-144 137 mEq/L mEq/L] (04/15/15 9:10 AM) Potassium Lvl 4.0 mEq/L [3.5-5.2 mEq/L] (04/15/15 9:10 AM) Chloride [99-111 103 mEq/L mEq/L] (04/15/15 9:10 AM) CO2 [22-31 mEq/L] 25 mEq/L (04/15/15 9:10 AM) AGAP [3-20] 9 (04/15/15 9:10 AM) BUN [10-20 mg/dL] 12 mg/dL (04/15/15 9:10 AM) Glucose Lvl [70-99 89 mg/dL mg/dL] (04/15/15 9:10 AM) Creatinine Lvl 0.75 mg/dL [0.57-1.11 mg/dL] (04/15/15 9:10 AM) eGFR [>60 mL/min] >60 mL/min 1 (04/15/15 9:10 AM) Calcium Lvl 9.2 mg/dL [8.9-10.5 mg/dL] (04/15/15 9:10 AM) 1Result Comment: Multiply eGFR results by [...] Visit Note Author: Yolie Negron MD Date: 04/15/15 Assessment/Plan AF (atrial fibrillation) Osteoporosis Tremor Visit for monitoring Reclast therapy
--- OUTSIDE RECORDS SUMMARY | 2017-01-19 07:46 | XMS REPORT | Referral Summary ---
Author Organization Unknown Address Unknown Phone Unavailable Care Team Providers Care Apprentice Architect Name Role Phone Fatoumata Negron Primary Care Physician [phone] Encounter VC Date(s): 01/11/15 - 01/11/15 [facility], [address] [place] [address] Discharge Diagnosis: Incisional pain Discharge Diagnosis: AFIB Discharge Diagnosis: Anticoagulated Discharge Disposition: Home or Self Care Attending Physician: Yolie Negron MD Admitting Physician: Yolie Negron MD Vital Signs Most recent to 1 oldest [Reference Range]: Temperature Tympanic 36.5 degC [36.6-38.1 degC] *LOW* (01/11/15 10:03 AM) Peripheral Pulse 78 bpm Rate [60-100 bpm] (01/11/15 10:03 AM) Blood Pressure 138/62 mmHg [90-140/60-90 mmHg] (01/11/15 10:03 AM) Problem List Condition Effective Dates Status [...] EVERY DAY, # 90 unknown unit, eRx: [facility] [id number], TAKE 1 TABLET (10MG) BY ORAL ROUTE EVERY DAY Special Instructions: TAKE 1 TABLET (10MG) BY ORAL ROUTE EVERY DAY Start Date: 10/26/14 Status: Ordered carbidopa-levodopa 10 mg-100 mg oral tablet See Instructions, TAKE 1 TABLET BY MOUTH THREE TIMES DAILY, # 270 tabs, 0 Refill (s), Pharmacy: [facility] Special Instructions: TAKE 1 TABLET BY MOUTH THREE TIMES DAILY Start Date: 12/28/14 Status: Ordered Centrum Silver 0.4mg-300mcgmcg - 1 tab, Daily, 0 Refill(s) Start Date: 04/09/14 Status: Ordered cephalexin 250 mg oral tablet 1 tabs, Oral, QID, X 7 days, # 28 tabs, 0 Refill(s), Pharmacy: [facility] [id number], 1 tabs Oral QID,x7 days Start Date: 01/09/15 Stop Date: 01/16/15 Status: Ordered Citracal + D 250MG-200UNITS - 2 CAPS, Oral, Daily, 0 Refill(s) Start Date: 04/09/14 Status: Ordered Coumadin 4 mg oral tablet See Instructions, 1 TABS ORAL DAILY, # 30 tabs, 3 Refill(s), eRx: [facility] [id number], 1 TABS ORAL DAILY Special Instructions: 1 TABS ORAL DAILY Start Date: 07/30/14 Status: Ordered digoxin 125 mcg (0.125 mg) oral tablet 1 tabs, Oral, Daily, 0 Refill(s) Start Date: 04/09/14 Status: Ordered flecainide 50 mg oral tablet See Instructions, 1.5 TABS ORAL Q12HR, # 270 tabs, 2 Refill(s), eRx: [facility] [id number], 1.5 TABS ORAL Q12HR Special Instructions: 1.5 TABS ORAL Q12HR Start Date: 09/23/14 Status: Ordered losartan 50 mg oral tablet See Instructions, TAKE 1 TABLET BY MOUTH EVERY DAY., # 90 unknown unit, 2 Refill (s), eRx: [facility] [id number], TAKE 1 TABLET BY MOUTH EVERY DAY. Special Instructions: TAKE 1 TABLET BY MOUTH EVERY DAY. Start Date: 11/03/14 Status: Ordered [place] 5 mg-325 mg oral tablet 1 tabs, [...] # 90 unknown unit, 3 Refill(s), eRx: [facility] [id number], TAKE 1 TABLET BY MOUTH DAILY OR DIRECTED BY PHYSICIAN. Special Instructions: TAKE 1 TABLET BY MOUTH DAILY OR DIRECTED BY PHYSICIAN. Start Date: 11/23/14 Status: Ordered Results Coagulation Most recent to 1 oldest [Reference Range]: INR [0.8-1.2] 1.3 1 *HI* (01/11/15 10:48 AM) 1Result Comment: Normal (no anticoagulant): 0.8 - 1.2 Units Routine Therapeutic Range: 2.0 - 3.0 Units High Risk Therapeutic Range: 2.5 - 3.5 Units Immunizations Vaccine Date Refusal Reason hepatitis A [...] Patient Education Author: Yolie Negron MD Date: 01/11/15 Family Medicine Warfarin Warfarin is a blood thinner (anticoagulant ) medicine. It is used to thin the blood so blood clots do not form. This medicine may cause very bad bleeding. You may also bruise easily while on this medicine. You may also bleed a little longer if you cut yourself. Before taking warfarin, tell your doctor if: You take any other medicine for your heart or blood pressure. You are . You plan to get . You are . You are allergic to any medicine. HOME CARE Have your blood checked as told by your doctor. Do not miss visits. Blood tests will include the PT and INR tests. These tests measure how long it takes for a clot to form in a blood sample. The test results help your doctor change your dose of warfarin if needed. If you miss your blood test visits, you could have bad bleeding or blood clots. Take warfarin exactly as told by your doctor. If you do not, bleeding or blood clots could lead to lasting injury, pain, or disability. Take your medicine at the same time every day. Do not miss a dose. Tell your doctor about all medicine you take. This includes medicines, vitamins, natural products, or dietary pills (supplements ). Certain medicines are not safe to take while taking warfarin. Taking other medicines while taking warfarin can affect your PT and INR test results. Do not start or stop any medicine unless you have been told to do so by your doctor. Do not take anything that has aspirin in it unless your doctor says it is okay. Eat the same amount of vitamin K foods every day. Vitamin K foods can change how warfarin works and your PT and INR test results. High vitamin K foods: Beef liver. Pork liver. Green tea. Broccoli. [place] sprouts. Cauliflower. Chickpeas. Kale. Spinach. Turnip greens. Medium vitamin K foods: Chicken liver. Pork tenderloin. Cheddar cheese. Rolled oats. Coffee. Asparagus. Cabbage. Iceberg lettuce. Low vitamin K foods: Apples. Butter. Bananas. Skim or 1% milk. Canned pears. White bread. Strawberries. [place]. Tomatoes. Green beans. Eggs. Potatoes. [place]. Pumpkin. Chicken breasts. Ground beef. Oil (except soybean oil). Avoid making major changes to your normal diet. Talk to your doctor first before changing your normal diet. Do not drink alcohol. Tell your doctors and dentists that you are taking warfarin at the beginning of every visit. GET HELP RIGHT AWAY IF: You miss a dose of warfarin. Do not take 2 doses at the same time. You have a skin rash. You have heavy or unusual bleeding. There is blood in your pee (urine ) or poop (stool ). You have side effects from medicine that do not get better after a few days. MAKE SURE YOU: Understand these instructions. Will watch your condition. Will get help right away if you are not doing well or get worse. Document Released: 11/24/2011 Document Revised: 04/22/2013 Document Reviewed: [facility] Patient Information 2014 [employer]. No follow up information was provided. Extracted from: Title: Office Visit Note Author: Yolie Negron MD Date: 01/11/15 Assessment/Plan Anticoagulated Check protime since on antibiotic. Incisional pain I think incision looks good. We re-wrapped it for her. Follow up with Dr. Granados.
--- OUTSIDE RECORDS SUMMARY | 2017-01-19 07:46 | XMS REPORT | Referral Summary ---
Author Organization Unknown Address Unknown Phone Unavailable Care Team Providers Care Cathode Maker Name Role Phone Fatoumata Negron Primary Care Physician [phone] Encounter VC Date(s): 01/05/15 - 01/05/15 [facility], [facility], [facility] [address] [place], [place] [address] Discharge Diagnosis: Ganglion cyst Discharge Disposition: Home or Self Care Attending Physician: Aston Andersen MD Admitting Physician: Aston Andersen MD Vital Signs Most recent to 1 oldest [Reference Range]: Temperature Tympanic 36.6 degC [36.6-38.1 degC] (01/05/15 9:59 AM) Peripheral Pulse 97 bpm Rate [60-100 bpm] (01/05/15 9:59 AM) Blood Pressure 162/86 mmHg [90-140/60-90 mmHg] *HI* (01/05/15 9:59 AM) Most recent to 1 oldest [Reference Range]: SpO2 97 % (01/05/15 9:59 AM) Problem List Condition Effective Dates Status [...] EVERY DAY, # 90 unknown unit, eRx: [facility] [id number], TAKE 1 TABLET (10MG) BY ORAL ROUTE EVERY DAY Special Instructions: TAKE 1 TABLET (10MG) BY ORAL ROUTE EVERY DAY Start Date: 10/26/14 Status: Ordered carbidopa-levodopa 10 mg-100 mg oral tablet See Instructions, TAKE 1 TABLET BY MOUTH THREE TIMES DAILY, # 270 tabs, 0 Refill (s), Pharmacy: [facility] Special Instructions: TAKE 1 TABLET BY MOUTH THREE TIMES DAILY Start Date: 12/28/14 Status: Ordered Centrum Silver 0.4mg-300mcgmcg - 1 tab, Daily, 0 Refill(s) Start Date: 04/09/14 Status: Ordered Citracal + D 250MG-200UNITS - 2 CAPS, Oral, Daily, 0 Refill(s) Start Date: 04/09/14 Status: Ordered Coumadin 4 mg oral tablet See Instructions, 1 TABS ORAL DAILY, # 30 tabs, 3 Refill(s), eRx: [facility] [id number], 1 TABS ORAL DAILY Special Instructions: 1 TABS ORAL DAILY Start Date: 07/30/14 Status: Ordered digoxin 125 mcg (0.125 mg) oral tablet 1 tabs, Oral, Daily, 0 Refill(s) Start Date: 04/09/14 Status: Ordered flecainide 50 mg oral tablet See Instructions, 1.5 TABS ORAL Q12HR, # 270 tabs, 2 Refill(s), eRx: [facility] [id number], 1.5 TABS ORAL Q12HR Special Instructions: 1.5 TABS ORAL Q12HR Start Date: 09/23/14 Status: Ordered losartan 50 mg oral tablet See Instructions, TAKE 1 TABLET BY MOUTH EVERY DAY., # 90 unknown unit, 2 Refill (s), eRx: [facility] [id number], TAKE 1 TABLET BY MOUTH EVERY DAY. Special Instructions: TAKE 1 TABLET BY MOUTH EVERY DAY. Start Date: 11/03/14 Status: Ordered [place] 5 mg-325 mg oral tablet 1 tabs, [...] # 90 unknown unit, 3 Refill(s), eRx: [facility] [id number], TAKE 1 TABLET BY MOUTH DAILY OR DIRECTED BY PHYSICIAN. Special Instructions: TAKE 1 TABLET BY MOUTH DAILY OR DIRECTED BY PHYSICIAN. Start Date: 11/23/14 Status: Ordered Results Coagulation Most recent to 1 oldest [Reference Range]: PT Fingerstick (01/05/15 11:34 AM) INR [0.8-1.2] 1.2 1 (01/05/15 11:34 AM) 1Result Comment: Normal (no anticoagulant): 0.8 [...]
--- OUTSIDE RECORDS SUMMARY | 2017-01-19 07:46 | XMS REPORT | Referral Summary ---
Author Author [facility] Organization [facility] Address Unknown Phone Unavailable Care Team Providers Care Master Deputy Sheriff [employer] Security Name Role Phone Fatoumata Negron Primary Care Physician [phone] Encounter Date(s): 04/13/16 - 04/13/16 [facility] [address] [place], [place] [address] Discharge Diagnosis: Presbylarynx Discharge Diagnosis: Parkinsons Discharge Disposition: 01-Home or Self Care Attending Physician: Karen Sampson DO Admitting Physician: Karen Sampson DO Vital Signs No data available for this [...] day), # 90 tabs, 3 Refill(s), Pharmacy: [facility] [id number], 1 tabs Oral Bedtime (once a day) Start Date: 07/19/15 Status: Ordered carbidopa-levodopa 25 mg-100 mg oral tablet See Instructions, 1 TABS ORAL TID, # 90 tabs, 5 Refill(s), eRx: [facility] [id number], 1 TABS ORAL TID Start Date: 12/06/15 Status: Ordered Centrum Silver 1 tabs, Oral, Daily, 0 Refill(s) Start Date: 04/09/14 Status: Ordered Citracal + D 250MG-200UNITS - 2 CAPS, Oral, Daily, 0 Refill(s) Start Date: 04/09/14 Status: Ordered digoxin 125 mcg (0.125 mg) oral tablet 125 mcg 1 tabs, Oral, Daily, # 90 tabs, 3 Refill(s), Pharmacy: [facility] [id number], 1 tabs Oral Daily Start Date: 07/06/15 Status: Ordered Diltiazem Hydrochloride ER 240 mg/24 hours oral capsule, extended release See Instructions, 1 CAPS ORAL DAILY, # 30 caps, 3 Refill(s), eRx: [facility] [id number], 1 CAPS ORAL DAILY Start Date: 02/03/16 Status: Ordered furosemide 40 mg oral tablet See Instructions, TAKE 1 TABLET BY MOUTH EVERY DAY, # 30 tabs, eRx: [facility] [id number], TAKE 1 TABLET BY MOUTH EVERY DAY Start Date: 04/04/16 Status: Ordered losartan 100 mg oral tablet 100 mg 1 tabs, Oral, Daily, home dose, # 90 tabs, 3 Refill(s), Pharmacy: [facility] [id number], 1 tabs Oral Daily,Instr:home dose Start Date: 11/25/15 Status: Ordered MiraLax oral powder for reconstitution 17 g, Oral, Daily, as needed, 0 Refill(s) Start Date: 12/10/15 Status: Ordered potassium chloride 20 mEq oral tablet, extended release See Instructions, TAKE 1 TABLET BY MOUTH TWICE DAILY, # 60 tabs, eRx: [facility] [id number], TAKE 1 TABLET BY MOUTH TWICE DAILY [...] Daily, # 90 tabs, 2 Refill(s), Pharmacy: [facility] [id number], 1 tabs Oral Daily Start Date: 04/13/16 Status: Ordered Zaroxolyn 2.5 mg oral tablet See Instructions, 1 tabs oral twice weekly as needed, # 15 tabs, 6 Refill(s), Pharmacy: [facility] [id number], 1 tabs oral twice weekly as needed [...]
[2017-01-19 07:48] VITALS: Ht 170.2 cm; Wt 67.4 kg
--- NOTE | 2017-01-19 07:51 | NUR ---
PROVIDER DR. MILLER IN ROOM WITH PT.
[2017-01-19 08:08] LABS: BLOOD, URINE 3+ (NEGATIVE); COLOR,URINE RED (YELLOW)
--- OUTSIDE RECORDS SUMMARY | 2017-01-19 08:15 | XMS REPORT | Continuity of Care Document ---
Author Author [facility] Organization [facility] Address Unknown Phone Unavailable Allergies Active [...] Status Pt. Type Provider Facility Loc./Unit Complaint [id number] 01/27/2014 14:43:00 01/27/2014 23 :59:59 C[facility] Outpatient [id number] 01/01/2014 10:47:00 01/01/2014 23 :59:59 CLS Outpatient
[2017-01-19 08:16] LABS: UROBILINOGEN,URINE INCONCL DUE TO COLOR EU/DL (NORMAL)
[2017-01-19 08:18] LABS: BASOPHILS % (AUTO) 0.3 % (0-2); EOSINOPHILS % (AUTO) 0.5 % (0-4); HCT - HEMATOCRIT 43.2 % (36-46); HGB - HEMOGLOBIN 14.7 GM/DL (12-16); LYMPHOCYTES # (AUTO) 0.7 T/MM3 (1-4.8); LYMPHOCYTES % (AUTO) 9.3 % (23-45); MEAN CORPUSCULAR HGB 32.1 UUG (26-34); MEAN CORPUSCULAR VOLUME 94.3 UM3 (80-100); MEAN PLATELET VOLUME 9.9 UM3 (9.4-12.4); MONOCYTES # (AUTO) 0.5 T/MM3 (0-0.8); MONOCYTES % (AUTO) 6.4 % (0-9.0); NEUTROPHILS #(AUTO)-ABSOLUTE 6.6 T/MM3 (1.8-7.7); NEUTROPHILS % (AUTO) 83.5 % (33-66); RED BLOOD COUNT 4.58 M/MM3 (4.00-5.20); WBC - WHITE BLOOD COUNT 7.9 T/MM3 (4.5-11.0)
[2017-01-19 08:20] LABS: LEUKOCYTE ESTERASE ,URINE INCONCL DUE TO COLOR (NEGATIVE); NITRITE,URINE INCONCL DUE TO COLOR (NEGATIVE)
[2017-01-19 08:21] LABS: RBC,URINE TNTC /HPF (0-3)
[2017-01-19 08:22] LABS: BACTERIA,URINE 1+ (NEGATIVE); SQUAMOUS EPITHELIAL CELL,UR 0-5
[2017-01-19 08:26] LABS: ALBUMIN 4.4 G/DL (3.5-5.0); ALBUMIN/GLOBULIN RATIO 1.5 RATIO (1.1-2.2); ALKALINE PHOSPHATASE 61 U/L (38-126); ALT (SGPT) 16 U/L (9-52); ANION GAP 8 MEQ/L (5-15); AST (SGOT) 32 U/L (14-36); BUN/CREATININE RATIO 21 RATIO (6-26); CALCIUM 9.7 MG/DL (8.4-10.2); CHLORIDE 97 MEQ/L (98-107); CO2 - CARBON DIOXIDE 32 MEQ/L (22-30); CREATININE 0.7 MG/DL (0.7-1.2); GLOMERULAR FILTRATION RATE 80; GLUCOSE 132 MG/DL (65-110); POTASSIUM 4.1 MEQ/L (3.6-5); SODIUM 137 MEQ/L (134-144); TOTAL PROTEIN 7.4 G/DL (6.3-8.2)
[2017-01-19] MEDS ORDERED: COLC0.6C3 PO (08:27)
[2017-01-19] MEDS ORDERED: DILTIAZEM PO (08:29)
[2017-01-19 08:30] LABS: INR 1.99 (0.76-1.04); PROTHROMBIN TIME 21.7 SEC (9.31-12.49)
--- NOTE | 2017-01-19 08:43 | ERPDOC ---
Departure Disposition Decision Date: Jan 19, 2017 Disposition Decision Time: 09:34 Disposition: 01 DISCHARGED HOME, SELF-CARE Impression Impression Impression: Primary Impression: Hematuria Additional Impressions: UTI (urinary tract infection) Elevated bilirubin Severity: Moderate Condition: Stable Seen By: Physician only Referrals: DIPTI MARIA MD (Family) Patient Instructions: Hematuria (ED), Urinary Tract Infection in Women (ED) Problems/Meds/Labs Reviewed?: Yes Medications reviewed and manag: Yes Additional Instructions: Keflex 500 mg tablet, 2 tabs twice daily. Please make an appointment with your primary care provider for early next week to review urine culture. Also please review the blood in your urine. He does slightly elevated bilirubin, would recommend that you also discussed this at your visit Follow up care ordered?: Yes Mental Status: Alert, Oriented Scripts Cephalexin (Keflex) 500 Mg Capsule 2 CAP PO BID, #40 CAP Prov: ANGEL MILLER MD 01/19/17 HPI - Female General Chief Complaint: Female Urogenital Problems Stated Complaint: PAINFUL URINATION, BLEEDING Time Seen by Provider: 07:55 HPI - Female Initial Comments 81-year-old female with dysuria and hematuria. Patient is concerned she has had some blood in her urine starting last night. She has no fever, no chills, no body aches. Very mild dysuria. No trauma. She does take Coumadin for atrial fibrillation. Does not know what her INR is at this time. Allergies: Coded Allergies: No Known Allergies (Unverified , 01/19/17) Past History Patient Surgical History Partial bowel [id number] (Secondary to colon cancer) Pacemaker placement Hysterectomy Breast biopsy Ganglion cyst removalleft ColonoscopyJune 2011 (Dr. Winslow) Past Medical History Metabolic: hypercholesterolemia, hypertension Cardiac: A-fib Surgical History General: other Cardiac: pacemaker Reproductive/: hysterectomy Family History Family PMH: FOUND: other Vaccines Hx Influenza Vaccination: Yes (Aug, 2015) Hx Pneumococcal Vaccination: Yes (Aug, 2015) Social History Sexuality: male partner Record Review Pertinent history updated: Yes Review of Systems Cardiovascular Rhythm/Rate: see HPI General: see HPI Female: see HPI Physical Exam General General Nourishment: well nourished, well developed, appears stated age, no acute distress Vitals and Pain First Documented Vital Signs Date Time Temp Pulse Resp B/P Pulse Ox O2 Delivery O2 Flow Rate FiO2 01/19/17 07:48 97.8 94 15 174/85 96 Room Air Weight: Kilograms: 67.400 Height (feet): 5 Height (inches): 7.00 Triage Pain Scale: Normal Exams: Head: Normocephalic w/o trauma Chest/Resp: Clear all ellington, with good airflow, and symmetry bilaterally CV: Regular rate and rhythm, without murmur or gallop, Pulses 2+ all extremities, capillary refill, <2 seconds all ext., no pedal edema noted Abdomen: Bowel sounds positive, soft, non-tender, non-distended, no hepatosplenomegaly, masses or bruits noted Neurologic: Patient is alert, and oriented, cranial nerves, motor/sensory/ cerebellar, exams w/o gross deficits, to observation Psychiatric: Patient exhibits, appropriate attention, emotion and affect Differential Diagnoses Considering: Ulcerative Coliltis, Renal Colic, UTI Progress Results/Orders Orders Procedure Category Date Status Time Cbc W/Auto LAB 01/19/17 Complete Diff-Reflex Manual 07:55 Cmp - Comprehensive LAB 01/19/17 Complete Metabolic UA, LAB 01/19/17 Complete Dip&Micro(Complete) & 07:54 INR LAB 01/19/17 Complete Urine Culture CARMEL 01/19/17 Logged 09:30 Lab Results Laboratory Tests Test 01/19/17 07:54 01/19/17 08:09 01/19/17 08:12 Urine Collection Type Voided-not cc-midstr Urine Color Red Urine Turbidity Cloudy Urine pH 7.0 Urine Specific [place] 1.015 Urine Protein 3+ Urine Glucose (UA) Trace Urine Ketones Inconcl due to color Urine Blood 3+ Urine Nitrite Inconcl due to color Urine Bilirubin Inconcl due to color Urine Urobilinogen Inconcl due to colorEU/DL Urine Leukocyte Esterase Inconcl due to color Urine RBC Tntc/HPF Urine WBC 1-3/HPF Urine Squamous Epithelial Cells 0-5 Urine Bacteria 1+ Urine Culture Indicated Cult not indicated Prothromb Time International Ratio 1.99 White Blood Count 7.9T/MM3 Red Blood Count 4.58M/MM3 Hemoglobin 14.7GM/DL Hematocrit 43.2% Mean Corpuscular Volume 94.3UM3 Mean Corpuscular Hemoglobin 32.1UUG Mean Corpuscular Hemoglobin Concent 34.0GM/DL RDW Standard Deviation 44.2FL Platelet Count 200T/MM3 Mean Platelet Volume 9.9UM3 Immature Granulocyte % (Auto) 0.0% Neutrophils (%) (Auto) 83.5% Lymphocytes (%) (Auto) 9.3% Monocytes (%) (Auto) 6.4% Eosinophils (%) (Auto) 0.5% Basophils (%) (Auto) 0.3% Absolute Immature Granulocyte (auto 0.00T/MM3 Absolute Neutrophils (auto) 6.6T/MM3 Absolute Lymphocytes (auto) 0.7T/MM3 Absolute Monocytes (auto) 0.5T/MM3 Absolute Eosinophils (auto) 0.0T/MM3 Absolute Basophils (auto) 0.0T/MM3 Turbidity < 20 Sodium Level 137MEQ/L Potassium Level 4.1MEQ/L Chloride Level 97MEQ/L Carbon Dioxide Level 32MEQ/L Anion Gap 8MEQ/L Blood Urea Nitrogen 15.0MG/DL Creatinine 0.7MG/DL Glomerular Filtration Rate Calc 80 BUN/Creatinine Ratio 21RATIO Glucose Level 132MG/DL Calculated Osmolality 267MOSM/KG Calcium Level 9.7MG/DL Total Bilirubin 1.60MG/DL Icterus Index < 2 Aspartate Amino Transf (AST/SGOT) 32U/L Alanine Aminotransferase (ALT/SGPT) 16U/L Alkaline Phosphatase 61U/L Total Protein 7.4G/DL Albumin 4.4G/DL Globulin 3.0G/DL Albumin/Globulin Ratio 1.5RATIO Chemistry Specimen Hemolysis < 15 Progress Progress Probable UTI with hematuria. Patient does have bacteria, no nitrite or leukocyte esterase. Her INR is 1.99. I'll start her on Keflex 500 mg, 2 tabs twice a day and she will take this 3 next week. Early next week and would like her to go see her primary care provider and review urine culture. If culture is negative she would stop the antibiotics at that point. Also bilirubin is elevated at 1.6 cannot find any previous bilirubin levels. Recommend follow-up. ANGEL MILLER MD Jan 19, 2017 08:43
--- NOTE | 2017-01-19 09:25 | NUR ---
PROVIDER DR. MILLER IN ROOM WITH PT.
[2017-01-19] MEDS ORDERED: CEPH-583 PO (09:37)
[2017-01-19 09:45] VITALS: BP 168/74; PULSE 84; RESP 14; TEMP 98; O2SAT 97
--- NOTE | 2017-01-19 09:45 | NUR ---
DISMISSAL PT IS RELEASED WITH DISMISSAL INSTRUCTIONS AND RX. PT VERBALIZED UNDERSTANDING OF INSTRUCTIONS AND RX USE AND DENIES ANY QUESTIONS. PT IS AMBULATORY OUT OF THE ED WITHOUT DIFFICULITES.
== END 2017-01-19 09:45 | disposition home or self-care (01) ==
LOC: ED 07:37
DX: N39.0 Urinary tract infection, site not specified (principal); R31.9 Hematuria, unspecified; R17 Unspecified jaundice; Z79.01 Long term (current) use of anticoagulants
CPT/HCPCS: 36415; 80053; 81001; 85025; 85610; 87086; 87088